=== PATIENT | male | born 1950 | race Caucasian/White ===

== ENCOUNTER 2021-11-02 08:48 | Outpatient (REF) | payer MEDICARE, SELFPAY ==
--- NOTE | 2021-11-02 13:09 | MHC.AU.ANO ---
Adult Audiological Evaluation Date of Visit: 11/02/21 Customs Director Used: Not Applicable Reason for Appointment: Patient was seen today due to concerns of a change in hearing. He reports difficulties understanding speech in the presence of background noise and when speaking at a distance. Recently, he was recommended to have his hearing checked by his primary care physician after receiving a screening in office. He also reports constant bilateral tinnitus. Mr. Taveras has a history of basal cell cancer on his left ear, that has been surgically removed and is being monitored. Mr. Taveras worked in [employer] in the [employer] for 6 years with limited use of hearing protection. 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 Does patient feel they have a hearing loss?: Yes If Yes, Which Ear?: Both Ears When Was Hearing Difficulty First Noticed?: Patient reports noticing a hearing loss about 5 years ago. Has hearing been tested previously?: Yes Previous Hearing Test Results: Patient was previously tested two years ago at the [place] in [place]. He did not have the results of the hearing test at this appointment. 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 History: History: Yes Branch: [employer] Years in : 4-8 Years Medical History: Medical History: Cancer, High Blood Pressure Medical History: Mr. Taveras is diagnosed with Parkinson's disease, which is managed with medications. Allergies: Bee stings Medication List: Rasagiline-1Mg- 1/day Carbidopa-Levodopa Tab- 25-100Mg- 3/day Valsartan 80-125Mg- 1/day Centrum Vitamin- 1/day Otoscopy: Right Ear: Unremarkable Left Ear: Unremarkable Tympanometry: Tympanometry performed due to: To assess integrity of the middle ear system Right Ear: Normal Middle Ear System (Type A) Left Ear: Normal Middle Ear System (Type A) Otoacoustic Emissions Frequency Range Used: 1.6-8 kHz Right Ear Results: Present 1600-2500Hz, Reduced 3200-3600Hz, Absent 4000-8000Hz Analysis: Reduced/Absent emissions suggest cochlear dysfunction Left Ear Results: Present 2207-5487, Absent 2637-7424 Hz Analysis: Reduced/Absent emissions suggest cochlear dysfunction Hearing Evaluation: Transducer(s) Used: Insert Earphones Method: Conventional Audiometry Stimuli Used: Pure Tones Right Ear: Description of Hearing: Normal hearing thresholds through 3000 Hz sloping to a moderately severe sensorineural hearing loss thereafter. Left Ear: Description of Hearing: Normal hearing thresholds through 2000 Hz sloping to a moderately severe sensorineural hearing loss thereafter. Speech Recognition Threshold (SRT): Method Used: Monitored Live Voice Stimuli Used: Spondee Words Right Ear: 10 dB Left Ear: 15 dB Word Discrimination: Method: Recorded Lists Word Lists Used: NU-6 Right Ear: 100% at 60 dB HL Left Ear: 100% at 60 dB HL QuickSIN: Binaural result of 2dB SNR loss was obtained today. This result is within the normal range while tested in optimal test conditions. These results do not rule out speech in noise difficulties in outside environments. Interpretation of Results: Mr. Taveras has a bilateral high frequency sensorineural hearing loss with excellent word recognition in quiet. Based on his hearing loss, it is expected that Mr. Taveras will have increased speech understanding difficulties in challenging listening environments, like a noisy restaurant. Recommendations: Audiological re-evaluation in one year. Will send a reminder card. Amplification is not warranted at this time. Patient does not feel they are ready for amplification at this time. Mr. Taveras should return in one year to monitor any changes in hearing. Patient was given list of communication strategies to employ to improve speech signal while in challenging listening environments. Diagnosis: Primary Diagnosis: H90.3 Bilateral Sensorineural Hearing Loss Secondary Diagnosis: H93.13 Tinnitus, Bilateral Services Performed: Comprehensive Audiological Evaluation (CPT 51384) Diagnostic Otoacoustic Emissions (CPT 55351, 26+TC) Tympanometry (CPT 80549) Signature: Student/Clinical Fellow: Yes: Marley Estrada B.A., AuD Refrigerating Technician I have reviewed/agreed with student/fellow documentation: Yes Provider: Soha Landaverde, CCC-A
== END 2021-11-02 08:49 | disposition home or self-care (01) ==
LOC: HO.SH 08:48
PROVIDERS: Visit Provider Internal Medicine
DX: Z01.118 Encounter for examination of ears and hearing with other abnormal findings (principal); H90.3 Sensorineural hearing loss, bilateral; H93.13 Tinnitus, bilateral
CPT/HCPCS: 92557; 92567; 92588

== ENCOUNTER → 2022-04-08 14:54 | Outpatient (BNVA) | payer MEDICARE, SELFPAY | PROVIDERS: PCP Internal Medicine; Visit Provider Nurse Practitioner Family | DX: G20 Parkinson's disease (principal); R26.9 Unspecified abnormalities of gait and mobility; Z79.899 Other long term (current) drug therapy | CPT/HCPCS: 99202 ==

== ENCOUNTER → 2022-06-23 07:50 | Outpatient (BNVA) | payer MEDICARE, SELFPAY | PROVIDERS: PCP Internal Medicine; Visit Provider Nurse Practitioner Family | DX: G20 Parkinson's disease (principal); R26.9 Unspecified abnormalities of gait and mobility; Z79.899 Other long term (current) drug therapy | CPT/HCPCS: 99212 ==

== ENCOUNTER → 2022-10-26 09:19 | Outpatient (BNVA) | payer MEDICARE, SELFPAY | PROVIDERS: PCP Internal Medicine; Visit Provider Nurse Practitioner Family | DX: G20 Parkinson's disease (principal); R26.9 Unspecified abnormalities of gait and mobility; R25.1 Tremor, unspecified; Z79.899 Other long term (current) drug therapy | CPT/HCPCS: 99212 ==

== ENCOUNTER → 2023-02-23 09:25 | Outpatient (BNVA) | payer MEDICARE, SELFPAY | PROVIDERS: PCP Internal Medicine; Visit Provider Nurse Practitioner Family | DX: G20 Parkinson's disease (principal); R26.9 Unspecified abnormalities of gait and mobility; Z79.899 Other long term (current) drug therapy | CPT/HCPCS: 99212 ==

== ENCOUNTER 2023-08-29 08:05 | Outpatient (AMB) | payer MEDICARE, SELFPAY ==
--- NOTE | 2023-08-29 08:14 | MHC.OFFVIS ---
Intake Vital Signs 08/29/23 08:16 Height 5 ft 10 in Weight 195 lb BMI 28.0 BP 138/76 Blood Pressure Location Rt brachial Position Sitting Respiration 16 Pulse 65 Pulse Source Pulse Oximeter Pulse Oximetry (%) 100 Oxygen Delivery Method Room Air Intake Visit Reasons: 6M f/up parkinsons - LVM Intake Note: Pt presents to the office for a 6 month follow up for Parkinsons. Pt states hes been well since his last visit. No new concerns. Financial Manager Required: No Allergies bee venom protein (honey bee) Allergy (Severe, Verified 08/29/23 08:15) Anaphylaxis tetanus Allergy (Severe, Uncoded 08/29/23 08:15) Nausea and Vomiting HPI HPI Comments History of Present Illness Details 73-yr-old male presents for f/u visit. Pt denies any significant interval medical history changes. Pt is currently enrolled in a PD and pain research study through the [facility] in [place]. Through the study he is being taught medication and being asked to listen to instrumental music. Pt's current PD medication regimen: CD-LD 25-100mg 1 tab qid Do medication effects last between doses: None ADL's: Independent, a bit slower. Slower with eating and cutting food. Swallowing: No issues Voice: Can be soft in the morning Cough: none Drooling: Some days a bit more- daytime and nighttime Orthostatic lightheadedness: More recently Constipation: None Freezing: Denies- shaky going backwards Stiffness: His back pain is better since starting the study Tremor: Stable. Falls: No interval falls. He is stilling try to practice situational awareness . Hallucinations: None Memory: Good Sleep: Good at night. May talk in his sleep and have dreams- not acting out dreams. Exercise: Stationary cycling, weight training- uses cable machine- when able. Active at home. Other- has been noticing bilateral whole wrist aching pain. Not sure if it is w/ rest or action. No weakness. [facility] Medical History Pleural plaque due to asbestos exposure Basal cell carcinoma HTN (hypertension) Surgical History (Updated 08/29/23 @ 08:20 by Dayna Griffin CMA) S/P skin biopsy History of colon surgery Hx of knee surgery Hx of appendectomy Family History Father Oral cancer Heart attack Mother Stroke Daughter HTN (hypertension) Hypothyroid Sister No problems noted. Sister No problems noted. Sister HTN (hypertension) Household Members: Spouse Alcohol intake: current Alcohol intake frequency: holidays/special occasions only Patient Tobacco Use Status: Former Tobacco user Quit Date: >50 yrs Review of Systems Const All systems reviewed & are unremarkable except as noted in HPI and below Physical Exam Vital Signs: Last Vital Signs Pulse 65 08/29/23 08:16 Resp 16 08/29/23 08:16 BP 138/76 08/29/23 08:16 Pulse Ox 100 08/29/23 08:16 Oxygen Delivery Method Room Air 08/29/23 08:16 BMI result Body Mass Index 28.0 Const General: cooperative and no acute distress Resp Effort & Inspection: normal respiratory effort and able to speak in complete sentences Neuro Other: General: A&O x's 3 Expression:? Mild decreased expression and blink Voice:? Mild hypophonia Tremor:? No tremor observed today Tone:? Bilateral upper extremity tone, mild Dyskinesia:? None FFM:? Mild bradykinesia Foot taps:? Mild bradykinesia Gait:? Stands easily today, good posture, decreased left arm swing, no right arm swing, short steps, steady gait Psych:? Pleasant affect RUE- positive Tinnel, negative Phalen and medial compression test LUE- negative Tinnel, Phalen, mediual compression test Assessment & Plan Assessment & Plan (1) Parkinson's disease: Code(s): G20 - Parkinson's disease (2) Tremor: Code(s): R25.1 - Tremor, unspecified Plan Continue Carbidopa-Levodopa 25-100mg QID at 9am, 12pm, 3pm, and 6pm. Monitor for evening/night off-times Continue Rasagaline 1mg qd. Continue regular physical activity. Try different silverware to improve ability to cut/eat food. Monitor wrist pain. Future considerations- increasing CD-LD or trying alternate. f/u in 6 months or sooner prn. Coding Level of Care Code Est Pt Level 4 (67705) Diagnoses Parkinson's disease G20 Tremor R25.1
[2023-08-29 08:16] VITALS: BP 138/76; PULSE 65; RESP 16; O2SAT 100; BMI 28.0
== END 2023-08-29 08:59 | disposition home or self-care (01) ==
PROVIDERS: Visit Provider Nurse Practitioner Family
DX: G20.A1 Parkinson's disease without dyskinesia, without mention of fluctuations (principal)
CPT/HCPCS: 99214

== ENCOUNTER → 2023-08-29 08:05 | Outpatient (BNVA) | payer MEDICARE, SELFPAY | PROVIDERS: Visit Provider Nurse Practitioner Family | DX: G20.A1 Parkinson's disease without dyskinesia, without mention of fluctuations (principal) | CPT/HCPCS: 99212 ==

== ENCOUNTER 2024-05-14 10:06 | Outpatient (AMB) | payer MEDICARE, SELFPAY ==
[2024-05-14 10:16] VITALS: BP 124/82; PULSE 68; O2SAT 97; BMI 26.5
--- NOTE | 2024-05-14 10:16 | MHC.OFFVIS ---
Vital Signs 05/14/24 10:16 Height 5 ft 10 in Weight 185 lb BMI 26.5 BP 124/82 Blood Pressure Location Rt brachial Position Sitting Pulse 68 Pulse Source Pulse Oximeter Pulse Oximetry (%) 97 Oxygen Delivery Method Room Air Intake Visit Reasons: 4 mo f/u- Parkinson-LVM Intake Note: Patient presents for 4 month follow up parkinsons . patient has no concerns today Allergies bee venom protein (honey bee) Allergy (Severe, Verified 05/14/24 10:22) Anaphylaxis tetanus Allergy (Severe, Uncoded 05/14/24 10:22) Nausea and Vomiting Medication List - Last Reconciled 05/14/24 by Christiane Min, IRRIGATION EQUIPMENT INSTALLER carbidopa-levodopa 25-100 mg 1 tab PO QID 30 days epinephrine (EpiPen 2-Christiano) 0.3 mg IM Q4H PRN multivitamin 1 tab PO DAILY rasagiline 1 mg PO DAILY 30 days valsartan-hydrochlorothiazide 80-12.5 mg 1 tab PO DAILY HPI Comments Details: 74 -yr-old male presents for f/u visit. Pt is accompanied by his . Pt denies any significant interval medical history changes. Pt is currently enrolled in a PD research study through the [place] in [place]. Pt's current PD medication regimen: CD-LD 25-100mg 1 tab qid. Rasagiline 1mg qd. ADL's: Independent, a bit slower. Slower with eating and cutting food. Swallowing: No issues Voice: Can be softer. [facility] Cough: None Drooling: Stable- daytime and nighttime Orthostatic lightheadedness: Has not noticed. Does drink water and Gatorade. Constipation: None Urinary: No issues. Freezing: Has now noticed some brief frozen feet. Stiffness: Not noticing Tremor: Not noticing Falls: He had a fall off a small ladder- thought he was just off could not correct his balance. Another fall, he tripped on his power washing cords. He is stilling try to practice situational awareness . Hallucinations: None Memory: Good Mood: Depressed, frustrated at times with having to think about everything he is doing. Sleep: Good at night. May talk in his sleep and have dreams- not acting out dreams. May need to rest after afternoon CD-LD dose. Tends to be an early riser. Exercise: Golfing. Active at home. Not going to the gym as much during the summer. Other- The bilateral whole wrist aching pain has resolved. May have brief episodes of tingling sensation in random parts of the body- mostly head or extremities. [facility] Medical History (Updated 05/14/24 @ 22:11 by BRIGETTE Ruvalcaba) Parkinson's disease Pleural plaque due to asbestos exposure Basal cell carcinoma HTN (hypertension) Surgical History S/P skin biopsy History of colon surgery Hx of knee surgery Hx of appendectomy Family History Father Oral cancer Heart attack Mother Stroke Daughter HTN (hypertension) Hypothyroid Sister No problems noted. Sister No problems noted. Sister HTN (hypertension) Social History Household Members: Spouse Alcohol intake: current Alcohol intake frequency: holidays/special occasions only Patient Tobacco Use Status: Former Tobacco user Review of Systems Const All systems reviewed & are unremarkable except as noted in HPI and below Physical Exam Vital Signs: Last Vital Signs Pulse 68 05/14/24 10:16 BP 124/82 05/14/24 10:16 Pulse Ox 97 05/14/24 10:16 Oxygen Delivery Method Room Air 05/14/24 10:16 BMI result Body Mass Index 26.5 Const General: cooperative and no acute distress Resp Effort & Inspection: normal respiratory effort and able to speak in complete sentences Neuro Other: General: A&O x's 3 Expression:? Mild decreased expression and blink, left facial droop- chronic. Voice:? Mild hypophonia Tremor:? RUE rest tremor Tone:? Bilateral upper extremity tone, mild Dyskinesia:? None FFM:? Mild bradykinesia Foot taps:? Mild bradykinesia Gait:? Stands easily today, good posture, decreased left arm swing, no right arm swing, short steps, steady gait Psych:? Pleasant affect Assessment & Plan Assessment & Plan (1) Parkinson's disease without dyskinesia: Code(s): G20.A1 - Parkinson's disease without dyskinesia, without mention of fluctuations Category: Medical (2) Tremor: Code(s): R25.1 - Tremor, unspecified Category: Medical (3) Bradykinesia: Code(s): R25.8 - Other abnormal involuntary movements Category: Medical Plan Continue Carbidopa-Levodopa 25-100mg QID at 9am, 12pm, 3pm, and 6pm. Continue Rasagaline 1mg qd. Continue regular physical activity. Offered OT to optimize self-feeding. Pt declines at this time. Strategies discussed to optimize self-feeding- try tapping, try mimicking his 's hand movements. Continue to f/u w/ dermatology as scheduled. Future considerations- increasing CD-LD or trying alternate. f/u in 6 months or sooner prn. Coding Level of Care Code Est Pt Level 4 (01034) Diagnoses Parkinson's disease without dyskinesia G20.A1 Tremor R25.1 Bradykinesia R25.8
== END 2024-05-14 11:36 | disposition home or self-care (01) ==
PROVIDERS: PCP Internal Medicine; Visit Provider Nurse Practitioner Family
DX: G20.A2 Parkinson's disease without dyskinesia, with fluctuations (principal)
CPT/HCPCS: 99214

== ENCOUNTER → 2024-05-14 10:06 | Outpatient (BNVA) | payer MEDICARE, SELFPAY | PROVIDERS: PCP Internal Medicine; Visit Provider Nurse Practitioner Family | DX: G20.A1 Parkinson's disease without dyskinesia, without mention of fluctuations (principal); R25.8 Other abnormal involuntary movements | CPT/HCPCS: 99212 ==

== ENCOUNTER 2024-07-10 14:20 | Outpatient (REF) | payer MEDICARE, SELFPAY ==
[2024-07-10 15:51] LABS: Hematocrit 43.9 % (42.0-52.0); Hemoglobin 14.7 g/dl (14.0-18.0); Mean Corpuscular HGB Conc 33.5 g/dl (31.0-36.0); Mean Corpuscular Hemoglobin 30.8 pg (27.0-33.0); Mean Corpuscular Volume 91.8 fL (80.0-98.0); Mean Platelet Volume 9.7 fL (9.4-12.4); Platelet Count 168 X10*3/uL (160-400); Red Blood Count 4.78 X10*6/uL (4.60-5.80); Red Cell Distribution Width 12.8 % (11.0-16.0); White Blood Count 6.8 X10*3/uL (4.8-10.8)
[2024-07-10 16:39] LABS: B Type Natriuretic Peptide 69 pg/mL (<100)
[2024-07-10 16:41] LABS: Anion Gap 12 (12-20); Blood Urea Nitrogen 22 mg/dL (9-16); Calcium 9.5 mg/dL (8.4-10.2); Carbon Dioxide 28 mmol/L (22-29); Chloride 105 mmol/L (96-108); Estimated Glomerular Filt Rate > 60; Glucose Random 87 mg/dL (60-115); Potassium 3.6 mmol/L (3.3-5.1); Sodium 141 mmol/L (135-145)
[2024-07-10 16:44] LABS: TSH reflex Free T4 1.33 uIU/mL (0.32-4.0)
== END 2024-07-10 14:21 | disposition home or self-care (01) ==
LOC: HO.LAB 14:20
PROVIDERS: PCP Internal Medicine; Visit Provider Internal Medicine Cardiovascular Disease
DX: I48.92 Unspecified atrial flutter (principal); I77.810 Thoracic aortic ectasia
CPT/HCPCS: 36415; 80048; 83880; 84443; 85027; 93005; 99202

== ENCOUNTER 2024-07-10 14:20 | Outpatient (AMB) | payer MEDICARE, SELFPAY ==
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
[2024-07-10 14:28] VITALS: BP 124/76; PULSE 69; BMI 26.6
== END 2024-07-10 15:11 | disposition home or self-care (01) ==
PROVIDERS: PCP Internal Medicine; Visit Provider Internal Medicine Cardiovascular Disease
DX: I48.92 Unspecified atrial flutter (principal); I77.89 Other specified disorders of arteries and arterioles
CPT/HCPCS: 93010; 99204

== ENCOUNTER → 2024-08-05 09:41 | Outpatient (REF) | payer MEDICARE, SELFPAY ==
--- NOTE | 2024-08-05 09:45 | HM_ITS ---
Conclusion: 1. Patient was monitored for total period of 2 days and 23 hours 2. Baseline was atrial flutter/fibrillation with average heart of 65 beats per minute with good rate control 3. Frequent PVCs noted with total burden of about 2% 4. No patient reported events 5. No significant pauses MTDD
--- NOTE | 2024-08-05 09:45 | CA_ITS ---
Transthoracic Echocardiogram Patient (Last, First, Middle): Bran Taveras A Gender: Male Date of : 1950 Age: 74 Procedure Date: 08/05/2024 Procedure Type: Transthoracic Echocardiogram Location: OP Height: 180.34 cm Weight: 83.01 kg BSA: 2.03 m2 Heart Rate: bpm BP: 132 / 70 mmHg Recreational Aide: MARGARITA Referring MD: Nishant Patel MD Symptoms: I48.92 - Unspecified atrial flutter Study Quality: Adequate ECG Rhythm: Atrial flutter Conclusions: - The left ventricular systolic function is normal. The calculated ejection fraction is 59% by biplane method. - There is severe septal and severe basal asymmetric hypertrophy. - No obvious valvular pathology seen on this study. - There is moderate dilatation of the ascending aorta measuring 4.50 cm. Findings Left Ventricle Normal left ventricular cavity size. The left ventricular systolic function is normal. The calculated ejection fraction is 59% by biplane method. There is no evidence of regional wall motion abnormalities. Diastolic function is indeterminate on the basis of available data. There is severe septal and severe basal asymmetric hypertrophy. Right Ventricle Moderately increased right ventricular cavity size. There is mild to moderately decreased right ventricular systolic function. Atria The left atrium is normal in size. The right atrium is mildly dilated. Aortic Valve There is a normal trileaflet aortic valve. There is mild calcification of the aortic valve. There is no aortic valve stenosis. There is no aortic valve regurgitation. Mitral Valve There is mild mitral annular calcification. There is mild mitral valve regurgitation. There is no mitral valve stenosis. Pulmonic Valve The pulmonic valve is likely normal. Tricuspid Valve There is mild tricuspid valve regurgitation. There is no evidence of pulmonary hypertension. Great Vessels The aortic annulus and sinuses of valsalva are normal in size. There is moderate dilatation of the ascending aorta measuring 4.50 cm. Venous The inferior vena cava is normal in size and collapses greater than 50% with inspiration. Pericardium/Pleural There is no evidence of pericardial effusion. Prior Study Comparison No prior study available for comparison. Recommendations, Care & Conclusions No obvious valvular pathology seen on this study. Measurements 2D Linear Measurements IVSd: 0.80 0.6-0.9/0.6-1.0 cm LVIDd: 5.72 3.9-5.3/4.2-5.9 cm LVIDd Index: 2.82 2.4-3.2/2.2-3.1 cm/m2 LVIDs: 2.97 2.0-3.6 cm LVPWd: 0.84 0.7-1.1 cm LA Diam: 4.40 2.7-3.8/3.0-4.0 cm LAIDs Index: 2.17 1.5-2.3 cm/m2 LV Mass: 221.18 67-162/88-224 g LV Mass Index: 108.96 43-95/49-115 g/m2 LVOT Diam: 2.20 3.0+(-)1.3 cm 2D Systolic Function EF 4C: 61.20 >55% EF 2C: 60.30 >55% EF BiP: 58.90 >55% Mitral Valve MV Pk E: 1.20 MV Decel Time: 113.00 E'Lateral: 11.30 E'Medial: 9.14 E/E' Med: 13.10 E/E' Lat: 10.60 PHT: 33.00 MVA PHT: 6.67 Decel Long: 10.57 Aortic Valve AoV Pk Hamilton: 0.89 AoV Pk Grad: 3.00 HEIDI: 3.37 LVOT LVOT Pk Hamilton: 0.79 LVOT Mn Hamilton: 0.58 LVOT VTI: 0.20 LVOT Pk Grad: 2.00 LVOT Mn Grad: 2.00 LVOT Diam: 2.20 LVOT Area: 3.80 Diastolic Function MV Pk E: 1.20 E'Medial: 9.14 E/E' Med: 13.10 E' Laterial: 11.30 E/E' Lat: 10.60 Right Ventricle TAPSE (mm): 12.20 Tricuspid Valve TR Pk Hamilton: 2.32 TR Pk Grad: 22.00 RA Press: 8.00 RVSP: 25.00 Great Vessels Aorta Sinus of Valsalva: 3.60 2.0-3.5 cm Ao Asc: 4.50 2.1-3.4 cm Pulmonary Valve PV Pk Hamilton: 0.65 Peak PV Grad: 2.00 Updated in Other Vendor System with Status of Final Dayne Manzo MD electronically signed on 08/05/2024 11:41:03 AM with status of Final
== END ==
LOC: HO.CARD 09:41
PROVIDERS: PCP Internal Medicine; Visit Provider Internal Medicine Cardiovascular Disease
DX: I48.92 Unspecified atrial flutter (principal)
CPT/HCPCS: 93242; 93306

== ENCOUNTER → 2024-08-05 09:45 | Outpatient (BNV) | payer MEDICARE, SELFPAY | PROVIDERS: PCP Internal Medicine; Visit Provider Internal Medicine | DX: I48.91 Unspecified atrial fibrillation (principal); I48.92 Unspecified atrial flutter | CPT/HCPCS: 93244; 93306 ==

== ENCOUNTER 2024-08-12 15:34 | Outpatient (AMB) | payer MEDICARE, SELFPAY ==
[2024-08-12 15:49] VITALS: BP 124/82; PULSE 86; BMI 27.2
--- NOTE | 2024-08-12 15:49 | MHC.OFFVIS ---
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 Required: No Change Management Administrator: Change Management Administrator Present Accompanied by: Spouse Allergies bee venom protein (honey bee) Allergy (Severe, Verified 05/14/24 10:22) Anaphylaxis tetanus Allergy (Severe, Uncoded 05/14/24 10:22) Nausea and Vomiting Medication List - Last Reconciled 08/12/24 by Nishant Patel MD apixaban (Eliquis) 5 mg PO BID carbidopa-levodopa 25-100 mg 1 tab PO QID 30 days epinephrine (EpiPen 2-Christiano) 0.3 mg IM Q4H PRN multivitamin 1 tab PO DAILY rasagiline 1 mg PO DAILY 30 days valsartan-hydrochlorothiazide 80-12.5 mg 1 tab PO DAILY HPI Comments Details: Bran comes for follow-up. He continues to said he has no significant symptoms. Continues to maintain activity level as tolerated. He has been taking Eliquis as tolerated. Denies any orthopnea, PND, leg edema. No prolonged palpitation irregular heartbeat. Denies any lightheadedness, syncope. No exertional chest pain. Echocardiogram shows preserved LV EF of 59% in moderate ascending aortic enlargement with severe septal asymmetric hypertrophy without obstructive physiology with mildly dilated right atrium. [facility] Medical History Parkinson's disease Pleural plaque due to asbestos exposure Basal cell carcinoma HTN (hypertension) Surgical History S/P skin biopsy History of colon surgery Hx of knee surgery Hx of appendectomy Family History Father Oral cancer Heart attack Mother Stroke Daughter HTN (hypertension) Hypothyroid Sister No problems noted. Sister No problems noted. Sister HTN (hypertension) Social History Household Members: Spouse Alcohol intake: current Alcohol intake frequency: holidays/special occasions only Patient Tobacco Use Status: Former Tobacco user Review of Systems Const Denies chills, Denies fatigue, Denies fever(s), Denies frequent falls, Denies weakness, Denies weight gain and Denies weight loss ENT Denies dizziness Card Denies chest pain, Denies leg edema, Denies lightheadedness, Denies palpitations, Denies dyspnea, Denies dyspnea on exertion, Denies orthopnea and Denies other (loss of consciousness) Resp Denies cough, Denies dyspnea and Denies dyspnea on exertion GI Denies hematochezia and Denies change in stool character Musc Denies abnormal gait, Denies muscle weakness, Denies numbness, Denies radiating pain into limb and Denies tingling Neuro Denies Abnormal speech present, Denies abnormal gait, Denies dizziness, Denies frequent falls, Denies numbness, Denies tingling and Denies weakness Endo Denies fatigue and Denies palpitations Physical Exam Vital Signs: Last Vital Signs Pulse 86 08/12/24 15:49 BP 124/82 08/12/24 15:49 BMI result Body Mass Index 27.2 Const General: cooperative, comfortable, no acute distress, alert, awake, Physically active and well groomed Nutritional Appearance: average body habitus and well nourished Orientation/consciousness: patient oriented x3 Limitations: no limitations HEENT Head: Yes normocephalic and Yes atraumatic Neck Neck: Yes trachea midline, Yes supple and Yes no JVD Resp Effort & Inspection: normal respiratory effort Auscultation: clear to auscultation bilaterally Cardio Jugular venous distension: no JVD Palpation: normal PMI Rate: regular rate Heart sounds: S1 normal heart sound present, S2 normal heart sound present, no click, no gallops, no murmurs and no rubs GI Auscultation: normal bowel sounds Skin General skin exam: no rashes or lesions noted Neuro General: patient oriented x3, no focal motor deficits and other (Parkinsonian tremor) Speech: No Abnormal speech present Extrem General: Yes no clubbing, cyanosis or edema Psych Appearance: grossly normal Office Procedures EKG Details: EKG shows atrial flutter with variable conduction with PVCs with nonspecific ST abnormalities [id number], Complete Assessment & Plan Assessment & Plan (1) Atrial flutter: Code(s): I48.92 - Unspecified atrial flutter Category: Medical Plan: Atrial flutter which is persistent without any obvious symptoms or signs of cardiac decompensation. Has been on oral anticoagulation 4 weeks. We discussed about management of atrial flutter and rhythm control approach as her usual 1st line treatment approach. It is possible that he is underestimating his symptoms at this point time. Discussed about synchronized cardioversion. We discussed risks, benefits, alternatives of procedure. Understands agrees and will schedule him in near future. (2) Ascending aorta enlargement: Code(s): I77.89 - Other specified disorders of arteries and arterioles Category: Medical Plan: Moderate ascending aortic aneurysm at 4.5 cm. Continue aggressive blood pressure control which is currently well optimized importance of good blood pressure control was discussed. Continue management lipid with target goal LDL less than 100 mg/dL. Advise avoid strenuous isometric exercise. Will follow up in the clinic after cardioversion. Thank you for allowing me to partake in his care Medications: Refilled apixaban (Eliquis) 5 mg PO BID 180 tabs 3RF Coding Level of Care Code Est Pt Level 4 (71616) Complex EM visit Add On G2211 Diagnoses Atrial flutter I48.92 Ascending aorta enlargement I77.89 CPT Codes EKG - CPT: 84990-[id number], Complete ([id number])
== END 2024-08-12 16:30 | disposition home or self-care (01) ==
LOC: HO.HCS 15:35
PROVIDERS: PCP Internal Medicine; Visit Provider Internal Medicine Cardiovascular Disease
DX: I48.92 Unspecified atrial flutter (principal); I77.89 Other specified disorders of arteries and arterioles
CPT/HCPCS: 93010; 99214; G2211

== ENCOUNTER → 2024-08-12 15:34 | Outpatient (BNVA) | payer MEDICARE, SELFPAY | PROVIDERS: PCP Internal Medicine; Visit Provider Internal Medicine Cardiovascular Disease | DX: I48.92 Unspecified atrial flutter (principal); I77.89 Other specified disorders of arteries and arterioles; Z79.01 Long term (current) use of anticoagulants | CPT/HCPCS: 93005; 99212 ==

== ENCOUNTER 2024-08-21 13:10 | Day surgery (SDC) | payer MEDICARE, SELFPAY ==
--- NOTE | 2024-08-20 11:48 | P.CONAN_ITS ---
Documented by User: Denita Cantrell NP 08/20/24 11:49 HPI - Anesthesia Eval Consult details Narrative: 74yo M for Cardioversion Michelle [facility] Active Problems Active Problems: All Active Problems Ascending aorta enlargement (Acute) Atrial flutter (Acute) Bradykinesia (Acute) Parkinson's disease without dyskinesia (Acute) Tremor (Acute) Gait difficulty (Acute) Past Medical History Medical History Parkinson's disease Pleural plaque due to asbestos exposure Basal cell carcinoma HTN (hypertension) Family History Family History Father Oral cancer Heart attack Mother Stroke Daughter HTN (hypertension) Hypothyroid Sister No problems noted. Sister No problems noted. Sister HTN (hypertension) Surgical History Surgical History S/P skin biopsy History of colon surgery Hx of knee surgery Hx of appendectomy Social History Social History Household Members: Spouse Are you a primary care connector to a significant other at home: No Do you presently have visiting nurse or other home services: No Alcohol intake: current Alcohol intake frequency: holidays/special occasions only Patient Tobacco Use Status: Former Tobacco user Use of substances other than those prescribed or required for medical reasons: No Are you DNR?: No Advance Directives: No Advance Directives Information Provided: Yes Recently lost weight without trying: No Meds Allergies Allergy/AdvReac Type Severity Reaction Status Date / Time bee venom protein (honey bee) Allergy Severe Anaphylaxis Verified 05/14/24 10:22 tetanus Allergy Severe Nausea and Uncoded 05/14/24 10:22 Vomiting Home Medications ?Medication ?Instructions ?Recorded ?Confirmed ?Last Taken ?Type multivitamin 1 tab PO DAILY 04/08/22 08/12/24 Unknown History valsartan 80 1 tab PO DAILY 04/08/22 08/12/24 Unknown History mg-hydrochlorothiazide 12.5 mg tablet epinephrine 0.3 mg/0.3 mL 0.3 mg IM Q4H PRN 02/23/23 08/12/24 Unknown History injection, auto-injector (EpiPen 2-Christiano) Exam Narrative Narrative: ECHO 07/2024 Conclusions: - The left ventricular systolic function is normal. The calculated ejection fraction is 59% by biplane method. - There is severe septal and severe basal asymmetric hypertrophy. - No obvious valvular pathology seen on this study. - There is moderate dilatation of the ascending aorta measuring 4.50 cm. Assessment and Plan Assessment Anesthesia Assessment: Chart Reviewed Documented by User: Blank Chen MD 08/21/24 14:16 [facility] Past Medical History Medical History Parkinson's disease Pleural plaque due to asbestos exposure Basal cell carcinoma HTN (hypertension) Family History Family History Father Oral cancer Heart attack Mother Stroke Daughter HTN (hypertension) Hypothyroid Sister No problems noted. Sister No problems noted. Sister HTN (hypertension) Family history of problems with anesthesia: No Surgical History Surgical History S/P skin biopsy History of colon surgery Hx of knee surgery Hx of appendectomy History of Problems with Anesthesia: No Social History Social History Household Members: Spouse Are you a primary care connector to a significant other at home: No Do you presently have visiting nurse or other home services: No Alcohol intake: current Alcohol intake frequency: holidays/special occasions only Patient Tobacco Use Status: Former Tobacco user Use of substances other than those prescribed or required for medical reasons: No Are you DNR?: No Advance Directives: No Advance Directives Information Provided: Yes Recently lost weight without trying: No Meds Allergies Allergy/AdvReac Type Severity Reaction Status Date / Time bee venom protein (honey bee) Allergy Severe Anaphylaxis Verified 05/14/24 10:22 tetanus Allergy Severe Nausea and Uncoded 05/14/24 10:22 Vomiting Home Medications ?Medication ?Instructions ?Recorded ?Confirmed ?Last Taken ?Type multivitamin 1 tab PO DAILY 04/08/22 08/12/24 Unknown History valsartan 80 1 tab PO DAILY 04/08/22 08/12/24 Unknown History mg-hydrochlorothiazide 12.5 mg tablet epinephrine 0.3 mg/0.3 mL 0.3 mg IM Q4H PRN 02/23/23 08/12/24 Unknown History injection, auto-injector (EpiPen 2-Christiano) Exam Airway Mallampati Class: II (cPs top front 4) TM Dist: >3cm Neck ROM: Full Heart: rrr Lungs: cta Assessment and Plan Assessment Anesthesia Assessment: Anesthesia Plan Discussed Final Anesthetic Review Family History of Problems with Anesthesia: No History of Problems with Anesthesia: No NPO: Yes ASA Class: II Final Preanesthetic Review: No Changes in Pt Med Stat, Meds/Allgs Chart Reviewed and Consent Obtained/Reviewed Patient Risk: Low Procedure Risk: Low Anesthetic Plan Anesthetic Plan: GA Disposition: Standard PACU
[2024-08-21 13:28] VITALS: BP 139/80; PULSE 68; RESP 16; TEMP 36.7; O2SAT 97
[2024-08-21] MEDS: Lactated Ringers 1,000 ML 50 ML IVCONT (14:28)
--- NOTE | 2024-08-21 14:31 | MHC.SHP ---
Pre-Procedural Eval Section A - 24 Hr Update-Section A only Date of Service: 08/21/24 The patient is an INPATIENT: No Changes since office visit: Yes Patient answered all questions; No Cold of Flu in the past 2 weeks, No New Medical Problems and No Changes in Medication The patient has been examined within 24 hours of the surgical procedure. The History & Physical has been completed within 30 days and I have reviewed it.: Yes Section B - Complete if H&P > 30 days Chief Complaint: Unspecified atrial flutter Allergies: Allergies Allergy/AdvReac Type Severity Reaction Status Date / Time bee venom protein (honey bee) Allergy Severe Anaphylaxis Verified 05/14/24 10:22 tetanus Allergy Severe Nausea and Uncoded 05/14/24 10:22 Vomiting Plan I have reviewed the history and physical and performed a pertinent physical examination on my patient. No changes have occurred unless specified. Time Spent With Patient Time: Total time managing care of this patient today ____ minutes.
[2024-08-21 15:15] VITALS: BP 133/79; PULSE 59; RESP 16; TEMP 36.8; O2SAT 97
--- NOTE | 2024-08-21 15:16 | ECG_ITS ---
Test Reason : S/P CARDIOVERSION Blood Pressure : / mmHG Vent. Rate : 076 BPM Atrial Rate : 076 BPM P-R Int : 286 ms QRS Dur : 104 ms QT Int : 414 ms P-R-T Axes : 002 -07 024 degrees QTc Int : 465 ms Sinus rhythm with 1st degree A-V block with occasional Premature ventricular complexes Possible Left atrial enlargement Borderline ECG No previous ECGs available Referred By: Nishant Patel Electronically Signed By:Rj Doherty
--- NOTE | 2024-08-21 15:17 | HO.CARDIVERS ---
Cardioversion Procedure Note Cardioversion Date of Procedure: Today Ordering Provider: Kristin Patel Performing Provider: Kristin Patel Indication for Procedure: Persistent atrial flutter Pre-Op Diagnosis: Same Post-Op Diagnosis: Sinus rhythm Performed with Transesophageal Echo: No Consent: Verbal and Written consent was obtained from the patient before starting and confirming oral anticoagulation use. The patient was made aware of the risk of synchronized cardioversion including benefits and alternatives Procedure: After consent obtained, cardioversion pads were attached in anteroposterior configuration and the patient was sedated by the anesthesia team. Once adequate sedation achieved, patient was delivered 200 joules of biphasic synchronized energy in anteroposterior configuration Complications: None Impression: Successful conversion to sinus rhythm Recommendations: 1. 12 lead EKG 2. Continue full oral anticoagulation with Eliquis 3. Follow up in the clinic after Holter monitor
[2024-08-21 15:20] VITALS: BP 112/65; PULSE 72; RESP 16; O2SAT 99
[2024-08-21 15:25] VITALS: BP 112/64; PULSE 73; RESP 16; O2SAT 96
[2024-08-21 15:30] VITALS: BP 125/78; PULSE 72; RESP 16; TEMP 36.6; O2SAT 96
== END 2024-08-21 15:48 | disposition home or self-care (01) ==
PROVIDERS: PCP Internal Medicine; Visit Provider Internal Medicine Cardiovascular Disease
PROC: 5A2204Z Restoration of Cardiac Rhythm, Single (ICD-10-PCS; principal; 2024-08-21 15:00)
DX: I48.92 Unspecified atrial flutter (principal); I77.89 Other specified disorders of arteries and arterioles; I10 Essential (primary) hypertension; G20.A1 Parkinson's disease without dyskinesia, without mention of fluctuations; J92.0 Pleural plaque with presence of asbestos; Z79.01 Long term (current) use of anticoagulants; Z79.899 Other long term (current) drug therapy; Z88.8 Allergy status to other drugs, medicaments and biological substances; Z98.890 Other specified postprocedural states; Z87.891 Personal history of nicotine dependence
CPT/HCPCS: 92960; 93005; J2704

== ENCOUNTER → 2024-08-21 13:10 | Outpatient (BNV) | payer MEDICARE, SELFPAY | PROVIDERS: PCP Internal Medicine; Visit Provider Internal Medicine Cardiovascular Disease | DX: I44.0 Atrioventricular block, first degree (principal); I49.3 Ventricular premature depolarization | CPT/HCPCS: 93010 ==

== ENCOUNTER 2024-09-12 09:34 | Outpatient (AMB) | payer MEDICARE, SELFPAY ==
--- NOTE | 2024-09-12 09:44 | A.OFFVIS_ITS ---
Vital Signs 09/12/24 09:45 Height 5 ft 10 in Weight 190 lb 14.725 oz BMI 27.4 BP 120/62 Pulse 75 Pulse Source Monitor Intake Visit Reasons: 4 wk f/up s/p; holter/ cvr Microwave Radio Technician Required: No Secondary English Teacher: Secondary English Teacher Present Allergies bee venom protein (honey bee) Allergy (Severe, Verified 09/12/24 09:49) Anaphylaxis tetanus Allergy (Severe, Uncoded 09/12/24 09:49) Nausea and Vomiting Medication List - Last Reconciled 09/12/24 by Nishant Patel MD apixaban (Eliquis) 5 mg PO BID carbidopa-levodopa 25-100 mg 1 tab PO QID 30 days epinephrine (EpiPen 2-Christiano) 0.3 mg IM Q4H PRN multivitamin 1 tab PO DAILY rasagiline 1 mg PO DAILY 30 days valsartan-hydrochlorothiazide 80-12.5 mg 1 tab PO DAILY HPI Comments Details: Bran comes for follow-up after cardioversion. He said he has been feeling we ll. He denies any new symptoms of irregular heartbeat or palpitation. No lightheadedness, syncope. He said he notices more energy since cardioversion. He denies any orthopnea, PND, leg edema. No bleeding issues or neurologic events. He said he remains concerned about falling although he was not had any falls for awhile. Denies any exertional chest pain. [facility] Medical History (Updated 09/12/24 @ 10:08 by Nishant Patel MD) Atrial flutter Parkinson's disease Pleural plaque due to asbestos exposure Basal cell carcinoma HTN (hypertension) Surgical History S/P skin biopsy History of colon surgery Hx of knee surgery Hx of appendectomy Family History Father Oral cancer Heart attack Mother Stroke Daughter HTN (hypertension) Hypothyroid Sister No problems noted. Sister No problems noted. Sister HTN (hypertension) Social History Household Members: Spouse Are you a primary care program resident to a significant other at home: No Do you presently have visiting nurse or other home services: No Alcohol intake: current Alcohol intake frequency: holidays/special occasions only Patient Tobacco Use Status: Former Tobacco user Review of Systems ENT Reports dizziness Card Denies chest pain, Denies chest pain at rest, Denies chest pain with activity, Denies rapid heart rate, Denies pedal edema, Denies edema, Denies leg edema, Denies lightheadedness, Denies palpitations, Denies dyspnea, Denies dyspnea on exertion and Denies orthopnea Resp Denies cough, Denies dyspnea and Denies dyspnea on exertion GI Denies hematochezia and Denies change in stool character Musc Denies abnormal gait, Reports limited range of motion, Reports muscle cramps, Denies muscle weakness, Denies numbness, Denies radiating pain into limb, Denies stiffness and Denies tingling Neuro Denies Abnormal speech present, Denies abnormal gait, Reports dizziness, Denies numbness and Denies tingling Endo Denies palpitations Physical Exam Vital Signs: Last Vital Signs Pulse 75 09/12/24 09:45 BP 120/62 09/12/24 09:45 BMI result Body Mass Index 27.4 Const General: cooperative, comfortable, no acute distress, alert, awake, Physically active and well groomed Nutritional Appearance: average body habitus and well nourished Orientation/consciousness: patient oriented x3 Limitations: no limitations HEENT Head: Yes normocephalic and Yes atraumatic Neck Neck: Yes trachea midline, Yes supple and Yes no JVD Resp Effort & Inspection: normal respiratory effort Auscultation: clear to auscultation bilaterally Cardio Jugular venous distension: no JVD Palpation: normal PMI Rate: regular rate Rhythm: regular rhythm Heart sounds: S1 normal heart sound present, S2 normal heart sound present, no click, no gallops, no murmurs and no rubs GI Auscultation: normal bowel sounds Skin General skin exam: no rashes or lesions noted Neuro General: patient oriented x3, no focal motor deficits and other (Parkinsonian tremor) Speech: No Abnormal speech present Extrem General: Yes no clubbing, cyanosis or edema Psych Appearance: grossly normal Office Procedures EKG Details: EKG shows normal sinus rhythm with first-degree AV block with poor R-wave progression most likely lead placement [id number], Complete Assessment & Plan Assessment & Plan (1) Paroxysmal atrial flutter: Code(s): I48.92 - Unspecified atrial flutter Category: Medical Plan: Paroxysmal atrial flutter status post cardioversion, feeling better with improved functional capacity as per him. Encouraged to continue to participate in regular physical activity. It will be difficult to monitor his recurrence as he has subtle symptoms associated with atrial flutter. I recommended him to consider investing in a smart wrist device that can help detect irregular pulse and may help with monitoring and burden of atrial flutter. If he has recurrent atrial flutter can consider antiarrhythmic drugs and/or ablation. This was discussed with him. We discussed about continuing oral anticoagulation therapy with Eliquis at 5 mg b.i.d.. He is concerned about fall although he was not fallen for awhile. We discussed about fall prevention techniques. Also Watchman device can be considered although currently I do not think he would qualify for the same as per FDA requirements. (2) Ascending aorta enlargement: Code(s): I77.89 - Other specified disorders of arteries and arterioles Category: Medical Plan: Mildly dilated ascending aorta without any change. Continue to avoid aggressive isometric exercises. No interventions required from surgical perspective. Continue aggressive blood pressure control which is currently well optimized. Encouraged to maintain activity level as tolerated. Will follow up in the clinic in 6 months time, sooner p.r.n.. Thank you for allowing me to partake in his care Coding Level of Care Code Est Pt Level 4 (58551) Complex EM visit Add On G2211 Diagnoses Paroxysmal atrial flutter I48.92 Ascending aorta enlargement I77.89 CPT Codes EKG - CPT: 50322-[id number], Complete ([id number])
[2024-09-12 09:45] VITALS: BP 120/62; PULSE 75; BMI 27.4
--- OUTSIDE RECORDS SUMMARY | 2024-09-18 00:54 | XMS_ITS | Continuity of Care Document ---
Author Name [facility] Organization [facility] Care Team Providers Care [employer] St[employer] And [employer] Supervisor Name Role Phone [facility] Unavailable Unavailable Problems Combined list of problems from Department of Defense and Veterans Affairs facilities. It does not include entries that were removed or entered in error. Problem Status Onset Date Problem Type Date of Resolution Comments Source Parkinson disease Active 7 Condition [facility] [place] [facility] Asbestosis Active Condition [facility] [place] [place] [facility]rial fibrillation Active Condition [facility] Colonic polyp Active [facility] Diverticulitis of colon Active [facility] Exposure to potentially hazardous substance Active Condition Nov 16, 2023 Entered By: PERLA PRUITT Comment: original RENETTA Screen completed 08/22/22 [facility] HTN - Hypertension ([facility] [id number]) [facility] Long-term current use of anticoagulant Active Condition [facility] (631[facility]) Diagnosis: ICD-10-CM Z79.01 custodial (current) use of anticoagulants Active Diagnosis [facility] (6[facility]) Diagnosis: ICD-10-CM I48.91 Unspecified atrial fibrillation Active Diagnosis [facility] [place] [facility] Diagnosis: ICD-10-CM I10 Essential (primary) hypertension Active Diagnosis [facility] [place] [facility] Diagnosis: ICD-10-CM Z23 Encounter for immunization Active Diagnosis [facility] Medications Combined list of outpatient medications from Department of Defense and Veterans Affairs facilities.Medications provided include 1) outpatient medications from the last 15 months, and 2) patient-reported medications. Medication Details Route Status Patient Instructions Prescription Expires Prescription Number Last Dispense Date Ordering Provider Order Date Order Qty Source APIXABAN 5MG TAB TAKE ONE TABLET BY MOUTH EVERY 12 HOURS FOR PREVENTI ON OF BLOOD CLOTS ORAL ACTIVE 08/28/2025 [id number] ALISON CLARK 2023 180 [facility] CARBIDOPA 25MG/LEVODO PA 100MG TAB TAKE 1 TABLET BY MOUTH FOUR TIMES A DAY ORAL ACTIVE 10/19/2024 [id number] 4 MARY ANNE JONES 2023 360 [facility] EPINEPHRINE (EQV-EPI-PE N) 0.3MG/0.3ML INJECTOR INJECT DIRECTED INTRAMUS CULARLY ONE TIME INTRAM USCULA R ACTIVE 08/27/2025 [id number] 4 ALISON CLARK 2023 2 [facility] RASAGILINE MESYLATE 1MG TAB TAKE ONE TABLET BY MOUTH AT BEDTIME ORAL ACTIVE 10/19/2024 [id number] 4 MARY ANNE JONES 2023 90 [facility] RASAGILINE MESYLATE 1MG TAB TAKE ONE TABLET BY MOUTH AT BEDTIME ORAL DISCONT INUED 08/04/2023 [id number] 3 MARY ANNE JONES Y 2022 90 [facility] VALSARTAN PA-F TAB TAKE DIRECTED BY MOUTH ONCE DAILY ORAL ACTIVE ALISON CLARK 2021 [facility] Allergies, Adverse Reactions, Alerts Combined list of allergies from Department of Defense and Veterans Affairs facilities. It does not include entries that were removed or entered in error. Substance Category Reaction Severity Reaction type Status Date Reported Comments Source BEE VENOM Propensity to adverse reaction (finding) active 9 [facility] TETANUS TOXOID Propensity to adverse reactions to drug (finding) active 9 [facility] Immunizations Combined list of available immunizations from the Department of Defense and Veterans Affairs facilities. Immunization Series Date Given Administered By Site Reaction Lot Number CVX Code Drug Double Head Machine Operator Status Comments Source INFLUENZA, UNSPECIFIED FORMULATION 2023 88 complet ed per statement from vet [facility] COVID-19 (MODERNA), MRNA, LNP-S, PF, 50 MCG/0.5 ML (AGES 12+ YEARS) 2022 CHANNING FERMIN LEFT DELTO ID [id number] 312 complet ed [facility] INFLUENZA, HIGH-DOSE, QUADRIVALENT 2022 CHANNING FERMIN KAMI RIGHT DELTO ID [id number] 197 complet ed [facility] COVID-19 (PFIZER), MRNA, LNP-S, BIVALENT BOOSTER, PF, 30 MCG/0.3 ML DOSE 4 2021 300 complet ed vets card Lot#: [id number] Mfr: [employer], [facility] INFLUENZA, UNSPECIFIED FORMULATION 2021 88 complet ed [facility] COVID-19 (PFIZER), MRNA, LNP-S, PF, 30 MCG/0.3 ML DOSE 2021 208 complet ed vets card Lot#: [id number] Mfr: [employer], [employer] [facility] COVID-19 (PFIZER), MRNA, LNP-S, PF, 30 MCG/0.3 ML DOSE 3 2020 208 complet ed vets card Lot#: [id number] Mfr: [employer], [employer] [facility] COVID-19 (PFIZER), MRNA, LNP-S, PF, 30 MCG/0.3 ML DOSE 2 2020 208 complet ed vets card Lot#: [id number] Mfr: [employer], [employer] [facility] COVID-19 (PFIZER), MRNA, LNP-S, PF, 30 MCG/0.3 ML DOSE 1 2020 208 complet ed Lot#: [id number] Mfr: [employer], [employer] [facility] INFLUENZA, UNSPECIFIED FORMULATION 2019 88 complet ed [facility] INFLUENZA, TRIVALENT, ADJUVANTED 2018 168 complet ed Site: Left Deltoid [facility] [place] [facility] ZOSTER RECOMBINANT 2 2018 187 complet ed [facility] [place] PNEUMOCOCCAL POLYSACCHARID E PPV23 2018 33 complet ed [facility] [place] [facility] ZOSTER RECOMBINANT 1 2018 187 complet ed [facility] [place] [facility] INFLUENZA, SEASONAL, INJECTABLE 2017 141 complet ed [facility] Results Combined list of recent chemistry, hematology and other laboratory results from Department of Defense and Veterans Affairs, ranging from 15 months to all on record, depending upon the facility. Order Name Results Value Reference Range Date Interpretation Specimen Comments Source BASIC METABOLIC PANEL (non-fast ing) UREA NITROGEN [MASS/VOLU ME] IN SERUM OR PLASMA 22 mg/dL 7 - 25 08/26 Specimen Type: SERUM No comment entered. Ordering Provider: SYDNEE CLARK Report Released Date/Time: Aug 15, 2024 03:53 PM Reporting Lab: [facility] [address] [facility] [address] Performing Lab: [facility] [address] [facility] [address] [facility] BASIC METABOLIC PANEL (non-fast ing) GLUCOSE [MASS/VOLU ME] IN SERUM OR PLASMA 91 mg/dL 65 - 100 08/26 Specimen Type: SERUM No comment entered. Ordering Provider: SYDNEE CLARK Report Released Date/Time: Aug 15, 2024 03:53 PM Reporting Lab: [facility] [address] [facility] [address] Performing Lab: [facility] [address] [facility] [address] [facility] BASIC METABOLIC PANEL (non-fast ing) SODIUM [MOLES/VOL UME] IN SERUM OR PLASMA 137 mmol/L 135 - 145 08/26 Specimen Type: SERUM No comment entered. Ordering Provider: SYDNEE CLARK Report Released Date/Time: Aug 15, 2024 03:53 PM Reporting Lab: [facility] [place] [facility] [address] [facility] [address] Performing Lab: [facility] [place] [facility] [address] [address] [facility] [place] [facility] BASIC METABOLIC PANEL (non-fast ing) POTASSIUM [MOLES/VOL UME] IN SERUM OR PLASMA 4.0 mmol/L 3.5 - 5.0 08/26 Specimen Type: SERUM No comment entered. Ordering Provider: SYDNEE CLARK Report Released Date/Time: Aug 15, 2024 03:53 PM Reporting Lab: [facility] [place] [facility] [address] [address] Performing Lab: [facility] [place] [address] [address] [facility] [place] [facility] BASIC METABOLIC PANEL (non-fast ing) CHLORIDE [MOLES/VOL UME] IN SERUM OR PLASMA 104 mmol/L 100 - 110 08/26 Specimen Type: SERUM No comment entered. Ordering Provider: SYDNEE CLARK Report Released Date/Time: Aug 15, 2024 03:53 PM Reporting Lab: [facility] [place] [facility] [address] [address] Performing Lab: [facility] [place] [address] [address] [facility] [place] [facility] BASIC METABOLIC PANEL (non-fast ing) CARBON DIOXIDE, TOTAL [MOLES/VOL UME] IN SERUM OR PLASMA 22 meq/L 20 - 30 08/26 Specimen Type: SERUM No comment entered. Ordering Provider: SYDNEE CLARK Report Released Date/Time: Aug 15, 2024 03:53 PM Reporting Lab: [facility] [place] [facility] [address] [address] Performing Lab: [facility] [place] [facility] [address] [address] [facility] [place] [facility] BASIC METABOLIC PANEL (non-fast ing) CREATININE [MASS/VOLU ME] IN SERUM OR PLASMA 0.84 mg/dL 0.50 - 1.40 08/26 Specimen Type: SERUM No comment entered. Ordering Provider: SYDNEE CLARK Report Released Date/Time: Aug 15, 2024 03:53 PM Reporting Lab: [facility] [address] [facility] [address] Performing Lab: [facility] [address] [facility] [address] [address] [facility] BASIC METABOLIC PANEL (non-fast ing) GLOMERULAR FILTRATION RATE/1.73 SQ M.PREDICTE D [VOLUME RATE/AREA] IN SERUM, PLASMA OR BLOOD BY CREATININE -BASED FORMULA (CKD-EPI 2020) >90mL/m in 60 08/26 Specimen Type: SERUM No comment entered. Ordering Provider: SYDNEE CLARK Report Released Date/Time: Aug 15, 2024 03:53 PM Reporting Lab: [facility] [address] [facility] [address] Performing Lab: [address] [address] [facility] CBC LEUKOCYTES [#/VOLUME] IN BLOOD BY AUTOMATED COUNT 7.30 10*3/uL 4.50 - 11.00 08/26 Specimen Type: BLOOD No comment entered. Ordering Provider: SYDNEE CLARK Report Released Date/Time: Aug 15, 2024 03:53 PM Reporting Lab: [facility] [address] [facility] [address] Performing Lab: [facility] [address] [facility] CBC ERYTHROCYT ES [#/VOLUME] IN BLOOD BY AUTOMATED COUNT 4.63 10*6/uL 4.23 - 5.66 08/26 Specimen Type: BLOOD No comment entered. Ordering Provider: SYDNEE CLARK Report Released Date/Time: Aug 15, 2024 03:53 PM Reporting Lab: [facility] [place] [facility] [address] [address] Performing Lab: [facility] [place] [facility] [address] [facility] [address] [facility] [place] [facility] CBC HEMOGLOBIN [MASS/VOLU ME] IN BLOOD 14.4 g/dL 12.8 - 17 08/26 Specimen Type: BLOOD No comment entered. Ordering Provider: SYDNEE CLARK Report Released Date/Time: Aug 15, 2024 03:53 PM Reporting Lab: [facility] [place] [facility] [address] [address] Performing Lab: [facility] [place] [facility] [address] [facility] [address] [facility] [place] [facility] CBC HEMATOCRIT [VOLUME FRACTION] OF BLOOD BY AUTOMATED COUNT 41.0 39.2 - 50.4 08/26 Specimen Type: BLOOD No comment entered. Ordering Provider: SYDNEE CLARK Report Released Date/Time: Aug 15, 2024 03:53 PM Reporting Lab: [facility] [place] [facility] [address] [facility] [address] Performing Lab: [facility] [place] [facility] [address] [address] [facility] [place] [facility] CBC MCV [ENTITIC VOLUME] BY AUTOMATED COUNT 88.6 fL 82 - 99 08/26 Specimen Type: BLOOD No comment entered. Ordering Provider: SYDNEE CLARK Report Released Date/Time: Aug 15, 2024 03:53 PM Reporting Lab: [facility] [place] [facility] [address] [address] Performing Lab: [facility] [place] [facility] [address] [address] [facility] [place] [facility] CBC MCHC [MASS/VOLU ME] BY AUTOMATED COUNT 35.1 g/dL 30.8 - 35.1 08/26 Specimen Type: BLOOD No comment entered. Ordering Provider: SYDNEE CLARK Report Released Date/Time: Aug 15, 2024 03:53 PM Reporting Lab: [facility] [place] [facility] [address] [address] Performing Lab: [facility] [place] [facility] [address] [facility] [address] [facility] [place] [facility] CBC PLATELETS [#/VOLUME] IN BLOOD BY AUTOMATED COUNT 153 10*3/uL 140 - 360 08/26 Specimen Type: BLOOD No comment entered. Ordering Provider: SYDNEE CLARK Report Released Date/Time: Aug 15, 2024 03:53 PM Reporting Lab: [facility] [place] [facility] [address] [facility] [address] Performing Lab: [facility] [place] [facility] [address] [facility] [address] [facility] [place] [facility] CBC ERYTHROCYT E DISTRIBUTI ON WIDTH [RATIO] BY AUTOMATED COUNT 12.8 12.0 - 16.0 08/26 Specimen Type: BLOOD No comment entered. Ordering Provider: SYDNEE CLARK Report Released Date/Time: Aug 15, 2024 03:53 PM Reporting Lab: [facility] [place] [facility] [address] [address] Performing Lab: [facility] [place] [facility] [address] [address] [facility] [place] [facility] CBC MCH [ENTITIC MASS] BY AUTOMATED COUNT 31.1 pg 26.2 - 32.6 08/26 Specimen Type: BLOOD No comment entered. Ordering Provider: SYDNEE CLARK Report Released Date/Time: Aug 15, 2024 03:53 PM Reporting Lab: [facility] [place] [facility] [address] [address] Performing Lab: [facility] [place] [address] [address] [facility] [place] [facility] LIPID PANEL, NON FASTING CHOLESTERO L [MASS/VOLU ME] IN SERUM OR PLASMA 209 mg/dL 08/26 H Specimen Type: SERUM No comment entered. Ordering Provider: SYDNEE CLARK Report Released Date/Time: Aug 15, 2024 03:53 PM Reporting Lab: [facility] [place] [facility] [address] [facility] [address] Performing Lab: [facility] [address] [facility] [address] [facility] LIPID PANEL, NON FASTING TRIGLYCERI DE [MASS/VOLU ME] IN SERUM OR PLASMA 301 mg/dL 0 - 150 08/26 H Specimen Type: SERUM No comment entered. Ordering Provider: SYDNEE CLARK Report Released Date/Time: Aug 15, 2024 03:53 PM Reporting Lab: [facility] [address] [address] Performing Lab: [facility] [address] [address] [facility] LIPID PANEL, NON FASTING CHOLESTERO L IN LDL [MASS/VOLU ME] IN SERUM OR PLASMA BY CALCULATIO N Reflex to dLDLmg/ dL 0 - 129 08/26 Specimen Type: SERUM No comment entered. Ordering Provider: SYDNEE CLARK Report Released Date/Time: Aug 15, 2024 03:53 PM Reporting Lab: [facility] [place] [address] [address] Performing Lab: [facility] [address] [address] [facility] LIPID PANEL, NON FASTING CHOLESTERO L.TOTAL/CH OLESTEROL IN HDL [MASS RATIO] IN SERUM OR PLASMA 4.5 08/26 Specimen Type: SERUM No comment entered. Ordering Provider: SYDNEE CLARK Report Released Date/Time: Aug 15, 2024 03:53 PM Reporting Lab: [facility] [place] [address] [address] Performing Lab: [place] [facility] [address] [address] [facility] [place] [facility] LIPID PANEL, NON FASTING CHOLESTERO L IN HDL [MASS/VOLU ME] IN SERUM OR PLASMA 46 mg/dL 40 - 60 08/26 Specimen Type: SERUM No comment entered. Ordering Provider: SYDNEE CLARK Report Released Date/Time: Aug 15, 2024 03:53 PM Reporting Lab: [facility] [place] [facility] [address] [address] Performing Lab: [facility] [place] [facility] [address] [address] [facility] [place] [facility] LIPID PANEL, NON FASTING CHOLESTERO L IN LDL [MASS/VOLU ME] IN SERUM OR PLASMA BY DIRECT ASSAY 124 mg/dL 08/26 H Specimen Type: SERUM No comment entered. Ordering Provider: SYDNEE CLARK Report Released Date/Time: Aug 15, 2024 03:53 PM Reporting Lab: [facility] [place] [address] [address] Performing Lab: [facility] [place] [address] [address] [facility] [place] [facility] LIVER FUNCTION PROTEIN [MASS/VOLU ME] IN SERUM OR PLASMA 7.6 g/dL 6.0 - 8.3 08/26 Specimen Type: SERUM No comment entered. Ordering Provider: SYDNEE CLARK Report Released Date/Time: Aug 15, 2024 03:53 PM Reporting Lab: [facility] [place] [address] [address] Performing Lab: [facility] [place] [address] [address] [facility] [place] [facility] LIVER FUNCTION ALBUMIN [MASS/VOLU ME] IN SERUM OR PLASMA 4.1 g/dL 3.5 - 5.0 08/26 Specimen Type: SERUM No comment entered. Ordering Provider: SYDNEE CLARK Report Released Date/Time: Aug 15, 2024 03:53 PM Reporting Lab: [facility] [place] [facility] [address] [facility] [address] Performing Lab: [facility] [place] [facility] [address] [address] [facility] [place] [facility] LIVER FUNCTION ALKALINE PHOSPHATAS E [ENZYMATIC ACTIVITY/V OLUME] IN SERUM OR PLASMA 54 U/L 40 - 150 08/26 Specimen Type: SERUM No comment entered. Ordering Provider: SYDNEE CLARK Report Released Date/Time: Aug 15, 2024 03:53 PM Reporting Lab: [facility] [place] [facility] [address] [facility] [address] Performing Lab: [facility] [place] [facility] [address] [address] [facility] [place] [facility] LIVER FUNCTION ASPARTATE AMINOTRANS FERASE [ENZYMATIC ACTIVITY/V OLUME] IN SERUM OR PLASMA 25 U/L 5 - 34 08/26 Specimen Type: SERUM No comment entered. Ordering Provider: SYDNEE CLARK Report Released Date/Time: Aug 15, 2024 03:53 PM Reporting Lab: [facility] [place] [facility] [address] [facility] [address] Performing Lab: [facility] [place] [facility] [address] [facility] [address] [facility] [place] [facility] LIVER FUNCTION ALANINE AMINOTRANS FERASE [ENZYMATIC ACTIVITY/V OLUME] IN SERUM OR PLASMA 6 U/L 08/26 Specimen Type: SERUM No comment entered. Ordering Provider: SYDNEE CLARK Report Released Date/Time: Aug 15, 2024 03:53 PM Reporting Lab: [facility] [place] [facility] [address] [facility] [address] Performing Lab: [facility] [place] [facility] [address] [address] [facility] [place] [facility] LIVER FUNCTION BILIRUBIN. TOTAL [MASS/VOLU ME] IN SERUM OR PLASMA 0.8 mg/dL 0.2 - 1.2 08/26 Specimen Type: SERUM No comment entered. Ordering Provider: SYDNEE CLARK Report Released Date/Time: Aug 15, 2024 03:53 PM Reporting Lab: [facility] [place] [facility] [address] [address] Performing Lab: [facility] [place] [facility] [address] [facility] [address] [facility] [place] [facility] PT & INR (COUMADIN ) INR IN PLATELET POOR PLASMA BY COAGULATIO N ASSAY 1.5 08/26 Specimen Type: PLASMA No comment entered. Ordering Provider: SYDNEE CLARK Report Released Date/Time: Aug 26, 2024 02:15 PM Reporting Lab: [facility] [place] [facility] [address] [address] Performing Lab: [facility] [place] [facility] [address] [address] [facility] [facility] PT & INR (COUMADIN ) PROTHROMBI N TIME (PT) 16.1 s 10.0 - 13.1 08/26 H Specimen Type: PLASMA No comment entered. Ordering Provider: SYDNEE CLARK Report Released Date/Time: Aug 26, 2024 02:15 PM Reporting Lab: [facility] [place] [facility] [address] [facility] [address] Performing Lab: [facility] [place] [facility] [address] [address] [facility] [place] [facility] BASIC METABOLIC PANEL (non-fast ing) UREA NITROGEN [MASS/VOLU ME] IN SERUM OR PLASMA 23 mg/dL 7 - 25 02/07 Specimen Type: SERUM No comment entered. Ordering Provider: SYDNEE CLARK Report Released Date/Time: Feb 02, 2024 10:46 AM Reporting Lab: [facility] [place] [facility] [address] [address] Performing Lab: [facility] [place] [facility] [address] [address] [facility] [place] [facility] BASIC METABOLIC PANEL (non-fast ing) GLUCOSE [MASS/VOLU ME] IN SERUM OR PLASMA 112 mg/dL 65 - 100 02/07 H Specimen Type: SERUM No comment entered. Ordering Provider: SYDNEE CLARK Report Released Date/Time: Feb 02, 2024 10:46 AM Reporting Lab: [address] [address] Performing Lab: [address] [address] [facility] BASIC METABOLIC PANEL (non-fast ing) SODIUM [MOLES/VOL UME] IN SERUM OR PLASMA 137 mmol/L 135 - 145 02/07 Specimen Type: SERUM No comment entered. Ordering Provider: SYDNEE CLARK Report Released Date/Time: Feb 02, 2024 10:46 AM Reporting Lab: [address] [address] Performing Lab: [address] [address] [facility] BASIC METABOLIC PANEL (non-fast ing) POTASSIUM [MOLES/VOL UME] IN SERUM OR PLASMA 3.9 mmol/L 3.5 - 5.0 02/07 Specimen Type: SERUM No comment entered. Ordering Provider: SYDNEE CLARK Report Released Date/Time: Feb 02, 2024 10:46 AM Reporting Lab: [address] [address] Performing Lab: [address] [address] [facility] BASIC METABOLIC PANEL (non-fast ing) CHLORIDE [MOLES/VOL UME] IN SERUM OR PLASMA 100 mmol/L 100 - 110 02/07 Specimen Type: SERUM No comment entered. Ordering Provider: SYDNEE CLARK Report Released Date/Time: Feb 02, 2024 10:46 AM Reporting Lab: [address] [address] Performing Lab: [facility] [address] [address] [facility] BASIC METABOLIC PANEL (non-fast ing) CARBON DIOXIDE, TOTAL [MOLES/VOL UME] IN SERUM OR PLASMA 27 meq/L 20 - 30 02/07 Specimen Type: SERUM No comment entered. Ordering Provider: SYDNEE CLARK Report Released Date/Time: Feb 02, 2024 10:46 AM Reporting Lab: [facility]N [facility] [address] [address] Performing Lab: [facility] [address] [address] [facility] BASIC METABOLIC PANEL (non-fast ing) CREATININE [MASS/VOLU ME] IN SERUM OR PLASMA 1.01 mg/dL 0.50 - 1.40 02/07 Specimen Type: SERUM No comment entered. Ordering Provider: SYDNEE CLARK Report Released Date/Time: Feb 02, 2024 10:46 AM Reporting Lab: [facility] [address] [address] Performing Lab: [facility] [facility] [address] [address] [facility] BASIC METABOLIC PANEL (non-fast ing) GLOMERULAR FILTRATION RATE/1.73 SQ M.PREDICTE D [VOLUME RATE/AREA] IN SERUM, PLASMA OR BLOOD BY CREATININE -BASED FORMULA (CKD-EPI 2020) 79 mL/min 60 02/07 Specimen Type: SERUM No comment entered. Ordering Provider: SYDNEE CLARK Report Released Date/Time: Feb 02, 2024 10:46 AM Reporting Lab: [facility] [address] [address] Performing Lab: [address] [address] [facility] CBC LEUKOCYTES [#/VOLUME] IN BLOOD BY AUTOMATED COUNT 5.84 10*3/uL 4.50 - 11.00 02/07 Specimen Type: BLOOD No comment entered. Ordering Provider: SYDNEE CLARK Report Released Date/Time: Feb 02, 2024 10:46 AM Reporting Lab: [facility] [address] [facility] [address] Performing Lab: [facility] [place] [facility] [address] [facility] [address] [facility] CBC ERYTHROCYT ES [#/VOLUME] IN BLOOD BY AUTOMATED COUNT 4.62 10*6/uL 4.23 - 5.66 02/07 Specimen Type: BLOOD No comment entered. Ordering Provider: SYDNEE CLARK Report Released Date/Time: Feb 02, 2024 10:46 AM Reporting Lab: [facility] [place] [address] [address] Performing Lab: [facility] [address] [address] [facility] CBC HEMOGLOBIN [MASS/VOLU ME] IN BLOOD 14.3 g/dL 12.8 - 17 02/07 Specimen Type: BLOOD No comment entered. Ordering Provider: SYDNEE CLARK Report Released Date/Time: Feb 02, 2024 10:46 AM Reporting Lab: [facility] [address] [address] Performing Lab: [facility] [address] [address] [facility] CBC HEMATOCRIT [VOLUME FRACTION] OF BLOOD BY AUTOMATED COUNT 40.9 39.2 - 50.4 02/07 Specimen Type: BLOOD No comment entered. Ordering Provider: SYDNEE CLARK Report Released Date/Time: Feb 02, 2024 10:46 AM Reporting Lab: [facility] [address] [address] Performing Lab: [facility] [address] [address] [facility] CBC MCV [ENTITIC VOLUME] BY AUTOMATED COUNT 88.5 fL 82 - 99 02/07 Specimen Type: BLOOD No comment entered. Ordering Provider: SYDNEE CLARK Report Released Date/Time: Feb 02, 2024 10:46 AM Reporting Lab: [facility] [place] [facility] [address] [facility] [address] Performing Lab: [facility] [place] [facility] [address] [address] [facility] CBC MCHC [MASS/VOLU ME] BY AUTOMATED COUNT 35.0 g/dL 30.8 - 35.1 02/07 Specimen Type: BLOOD No comment entered. Ordering Provider: SYDNEE CLARK Report Released Date/Time: Feb 02, 2024 10:46 AM Reporting Lab: [facility] [address] [address] Performing Lab: [facility] [address] [address] [facility] CBC PLATELETS [#/VOLUME] IN BLOOD BY AUTOMATED COUNT 162 10*3/uL 140 - 360 02/07 Specimen Type: BLOOD No comment entered. Ordering Provider: SYDNEE CLARK Report Released Date/Time: Feb 02, 2024 10:46 AM Reporting Lab: [facility] [place] [address] [address] Performing Lab: [facility] [place] [facility] [address] [facility] [facility] [address] [facility] CBC ERYTHROCYT E DISTRIBUTI ON WIDTH [RATIO] BY AUTOMATED COUNT 12.4 12.0 - 16.0 02/07 Specimen Type: BLOOD No comment entered. Ordering Provider: SYDNEE CLARK Report Released Date/Time: Feb 02, 2024 10:46 AM Reporting Lab: [facility] [place] [address] [address] Performing Lab: [facility] [place] [address] [place] [address] [facility] CBC MCH [ENTITIC MASS] BY AUTOMATED COUNT 31.0 pg 26.2 - 32.6 02/07 Specimen Type: BLOOD No comment entered. Ordering Provider: SYDNEE CLARK Report Released Date/Time: Feb 02, 2024 10:46 AM Reporting Lab: [facility] [place] [address] [address] Performing Lab: [facility] [place] [facility] [address] [facility] [address] [facility] LIPID PANEL, NON FASTING CHOLESTERO L [MASS/VOLU ME] IN SERUM OR PLASMA 161 mg/dL 02/07 Specimen Type: SERUM No comment entered. Ordering Provider: SYDNEE CLARK Report Released Date/Time: Feb 02, 2024 10:46 AM Reporting Lab: [facility] [address] [address] Performing Lab: [facility] [place] [address] [address] [facility] LIPID PANEL, NON FASTING TRIGLYCERI DE [MASS/VOLU ME] IN SERUM OR PLASMA 102 mg/dL 0 - 150 02/07 Specimen Type: SERUM No comment entered. Ordering Provider: SYDNEE CLARK Report Released Date/Time: Feb 02, 2024 10:46 AM Reporting Lab: [facility] [place] [facility] [address] [facility] [facility] [address] Performing Lab: [facility] [place] [address] [address] [facility] LIPID PANEL, NON FASTING CHOLESTERO L IN LDL [MASS/VOLU ME] IN SERUM OR PLASMA BY CALCULATIO N 101 mg/dL 0 - 129 02/07 Specimen Type: SERUM No comment entered. Ordering Provider: SYDNEE CLARK Report Released Date/Time: Feb 02, 2024 10:46 AM Reporting Lab: [facility] [place] [facility] [address] [facility] [address] Performing Lab: [facility] [place] [facility] [address] [address] [facility] [place] [facility] LIPID PANEL, NON FASTING CHOLESTERO L.TOTAL/CH OLESTEROL IN HDL [MASS RATIO] IN SERUM OR PLASMA 4.0 02/07 Specimen Type: SERUM No comment entered. Ordering Provider: SYDNEE CLARK Report Released Date/Time: Feb 02, 2024 10:46 AM Reporting Lab: [facility] [place] [facility] [address] [facility] [address] Performing Lab: [facility] [place] [facility] [address] [address] [facility] [place] [facility] LIPID PANEL, NON FASTING CHOLESTERO L IN HDL [MASS/VOLU ME] IN SERUM OR PLASMA 40 mg/dL 40 - 60 02/07 Specimen Type: SERUM No comment entered. Ordering Provider: SYDNEE CLARK Report Released Date/Time: Feb 02, 2024 10:46 AM Reporting Lab: [facility] [place] [facility] [address] [address] Performing Lab: [facility] [place] [facility] [address] [address] [facility] [place] [facility] LIVER FUNCTION PROTEIN [MASS/VOLU ME] IN SERUM OR PLASMA 7.2 g/dL 6.0 - 8.3 02/07 Specimen Type: SERUM No comment entered. Ordering Provider: SYDNEE CLARK Report Released Date/Time: Feb 02, 2024 10:46 AM Reporting Lab: [facility] [place] [facility] [address] [address] Performing Lab: [facility] [place] [facility] [address] [address] [facility] [place] [facility] LIVER FUNCTION ALBUMIN [MASS/VOLU ME] IN SERUM OR PLASMA 4.0 g/dL 3.5 - 5.0 02/07 Specimen Type: SERUM No comment entered. Ordering Provider: SYDNEE CLARK Report Released Date/Time: Feb 02, 2024 10:46 AM Reporting Lab: [facility] [address] [address] Performing Lab: [facility] [address] [address] [facility] [place] [facility] LIVER FUNCTION ALKALINE PHOSPHATAS E [ENZYMATIC ACTIVITY/V OLUME] IN SERUM OR PLASMA 60 U/L 40 - 150 02/07 Specimen Type: SERUM No comment entered. Ordering Provider: SYDNEE CLARK Report Released Date/Time: Feb 02, 2024 10:46 AM Reporting Lab: [facility] [place] [facility] [address] [address] Performing Lab: [facility] [place] [facility] [address] [address] [facility] [place] [facility] LIVER FUNCTION ASPARTATE AMINOTRANS FERASE [ENZYMATIC ACTIVITY/V OLUME] IN SERUM OR PLASMA 26 U/L 5 - 34 02/07 Specimen Type: SERUM No comment entered. Ordering Provider: SYDNEE CLARK Report Released Date/Time: Feb 02, 2024 10:46 AM Reporting Lab: [facility] [place] [facility] [address] [address] Performing Lab: [facility] [place] [facility] [address] [address] [facility] [place] LIVER FUNCTION ALANINE AMINOTRANS FERASE [ENZYMATIC ACTIVITY/V OLUME] IN SERUM OR PLASMA 7 U/L 02/07 Specimen Type: SERUM No comment entered. Ordering Provider: SYDNEE CLARK Report Released Date/Time: Feb 02, 2024 10:46 AM Reporting Lab: [facility] [place] [facility] [address] [address] Performing Lab: [facility] [place] [facility] [address] [address] [facility] [place] [facility] LIVER FUNCTION BILIRUBIN. TOTAL [MASS/VOLU ME] IN SERUM OR PLASMA 1.1 mg/dL 0.2 - 1.2 02/07 Specimen Type: SERUM No comment entered. Ordering Provider: SYDNEE CLARK Report Released Date/Time: Feb 02, 2024 10:46 AM Reporting Lab: [facility] [address] [facility] [address] Performing Lab: [facility] [place] [facility] [address] [address] [facility] THYROID T4 FREE(FT4) THYROXINE (T4) FREE [MASS/VOLU ME] IN SERUM OR PLASMA 0.96 ng/dL 0.6 - 1.6 08/14 Specimen Type: SERUM No comment entered. Ordering Provider: SYDNEE CLARK Report Released Date/Time: Aug 03, 2023 08:54 AM Reporting Lab: [facility] [place] [facility] [address] [address] Performing Lab: [facility] [place] [facility] [address] [facility] [address] [facility] [place] [facility] Vital Signs Combined list of inpatient and outpatient Vital Signs from Department of Defense and Veterans Affairs, ranging from 12 months to all on record, depending upon the facility. Vital Sign Value Date Comments Source SYSTOLIC BLOOD PRESSURE 140 08/26/20 24 13:47:04 [facility] [place] [facility] DIASTOLIC BLOOD PRESSURE 87 024 13:47:04 [facility] [place] [facility] PULSE OXIMETRY 97 08/26/2024 13:47:04 [facility] WEIGHT 189 08/26/2024 13:47:04 [facility] BMI 27kg/m2 08/26/2024 13:47:04 [facility] PAIN 5 08/26/2024 13:47:04 [facility] HEIGHT 70 08/26/2024 13:47:04 [facility] TEMPERATURE 97.5 08/26/2024 13:47:04 [facility] PULSE 81 08/26/2024 13:47:04 [facility] RESPIRATION 20 08/26/2024 13:47:04 [facility] SYSTOLIC BLOOD PRESSURE 152 02/15/20 24 10:40:16 [facility] DIASTOLIC BLOOD PRESSURE 97 024 10:40:16 [facility] PULSE OXIMETRY 99 02/15/2024 10:40:16 [facility] WEIGHT 192 02/15/2024 10:40:16 [facility] BMI 28kg/m2 02/15/2024 10:40:16 [facility] PAIN 0 02/15/2024 10:40:16 [facility] HEIGHT 70 02/15/2024 10:40:16 [facility] TEMPERATURE 97.1 02/15/2024 10:40:16 [facility] PULSE 52 02/15/2024 10:40:16 [facility] RESPIRATION 20 02/15/2024 10:40:16 [facility] Encounters Combined list of: 1) Encounters from Department of Veterans Affairs facilities going back up to thelast 18 months. 2) Encounters from the Department of Defense facilities going back up to 280 months. Location Location Details Encounter Type Encounter Number Reason For Visit Attending Provider ADM Date DC Date Status Disposition Source [facility] Encounter [id number] 04/25 [facility]counter [id number] 06/01 [facility]counter [id number] 06/02 [facility] Encounter [id number] 06/02 [facility] Encounter [id number] 07/26 [facility] Encounter [id number] 07/27 [facility] Encounter [id number] 08/09 [facility] OFFICE O/P EST LOW 20-29 MIN [id number] Diagnos is: ICD-10- CM Z23 Encount er for immuniz ation<b r/> Dylan CLARK 08/14 [facility] Encounter [id number] 10/19 [facility] Out[facility] Encounter [id number] 12/14 [facility] Encounter [id number] 12/21 [facility] Encounter [id number] 02/08 [facility] Encounter [id number] 02/08 [facility] OFFICE O/P EST LOW 20 MIN [id number] Diagnos is: ICD-10- CM I10 Essenti al (primar y) hyperte nsion<b r/> Dylan CLARK 02/14 [facility] Encounter [id number] 03/26 [facility] Encounter [id number] 06/11 [facility] Out[facility] Encounter [id number] [facility] Out[facility] Encounter [id number] 06/12 [facility] Out[facility] Encounter [id number] 06/12 [facility] Out[facility] Encounter [id number] 06/18 [facility] Encounter [id number] 08/09 [facility] Out[facility] Encounter [id number] 08/26 [facility] OFFICE O/P EST MOD 30 MIN [id number] Diagnos is: ICD-10- CM I48.91 Unspeci fied atrial fibrill ation<b r/> Dylan CLARKELVA Ramses 08/26 [facility] [place] ([id number]) MTMS BY PHARM EST 15 MIN [id number] Diagnos is: ICD-10- CM 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
ALEXANDRE QUEZADA 08/27 [facility] ([id number]) Social History Combined list of available smoking, tobacco, and other social history from Department of Defense and Veterans Affairs facilities. Social History Type Response Date Comment Sourc e Tobacco smoking status NHIS NC-TOBACCO FORMER USER 08/26/2024 [facility] [place] [facility] History of tobacco use NC-TOBACCO QUIT 15 YRS OR MORE 08/26/2024 [facility] [place] [facility] History of tobacco use NC-TOBACCO FORMER USER 08/14/2023 [facility] [place] [facility] History of tobacco use NC-TOBACCO FORMER USER 08/22/2022 [facility] [place] [facility] History of tobacco use NC-TOBACCO QUIT 15 YRS OR MORE 03/20/2020 [facility] [place] [facility] History of tobacco use NC-TOBACCO FORMER USER [facility] [place] [facility] Plan of Care List of future care activities from Department of Veterans Affairs facilities. Additional future care activities may be listed in the Assessment and Plan section. Date/Time Care Activity Care Activity Detail Facili ty 02/26/2025 AMBULATORY - MEDICINE AMBULATORY - MEDICI NE [facility] [place] [facility] 08/26/2024 Consult Order COMM[facility]ITY [facility]ARE-N EUROLOGY Cons [employer] Developer[employer] [facility] [place] [facility]
--- OUTSIDE RECORDS SUMMARY | 2024-09-18 00:55 | XMS_ITS | Encounter Summary ---
Author Name [facility] [facility] [place] Address [address] [place] [id number] Care Team Providers Care Conventional Machinist Name Role Phone BRAN POPE Primary Care Provider [facility] Insurance Providers: All historical and current Section Date Range: From patient's date of to the date document was created. This section includes the names of all active insurance providers for the patient. Insurance Provider Type of Coverage Plan Name Start of Policy Coverage End of Policy Coverage Group Number Member ID Insurance Provider's Telephone Number Policy Butler's Name Patient's Relationship to Policy Butler AARP [facility] (WNR) MEDICARE ADVANTAGE [facility] (WNR) Oct 09, 2020 [id number] ANTHONY,WIL MANJEET PATIENT [facility] (WNR) MEDICARE ADVANTAGE [facility] (WNR) Oct 09, 2020 [id number] ANTHONY,WIL MANJEET PATIENT [facility] (WNR) MEDICARE ADVANTAGE [facility] (WNR) Apr 08, 2018 [id number] ANTHONY,WIL MANJEET PATIENT [facility] (WNR) MEDICARE ADVANTAGE [facility] (WNR) Apr 08, 2018 [id number] [facility] CRUZ MANJEET PATIENT Selected Encounter This section includes the information on record at [place] for the Encounter. Date/Time Encounter Type Encounter Description Reason Pro vider Source Dec 15, 2023 01:16 PM Outpatient Encounter ADMIN PAT ACTIVTIES (MASNONCT) IHE Encounter Template Text not used by [place] Plan of Treatment: Future Appointments (+ 6 months) and Future Tests (+/- 45 days) The Plan of Treatment section includes future care activities for the patient from all [place] [facility] This section includes future appointments and future orders which are active, pending or scheduled. Future Appointments This section includes appointments that were scheduled to occur 6 months from the date of the Encounter, up to a maximum of 20 appointments. The data comes from all [place] treatment facilities. Appointment Date/Time Appointment Type Appointme nt Facility Name Dec 22, 2023 11:00 AM AMBULATORY - MEDICINE [facility] [place] [facility] February 15, 2024 11:00 AM AMBULATORY - MEDICINE [facility] [place] [facility] Social History: Smoking Status (Most current) and Tobacco Use (All prior to encounter date) This section includes the most current, and the historical, smoking and tobacco- related health factors from the [place] facility where the Encounter took place. Current Smoking Status This section includes the most current smoking, or tobacco-related health factor, from the [place] facility where the Encounter took place. Date/Time Current Smoking Status Comment Facil ity Aug 14, 2023 01:00 PM VA-TOBACCO FORMER USER [place] [facility] [place] [facility] Tobacco Use History This section includes a history of the smoking, or tobacco-related health factors, that were collected on or before the date of the Encounter. The data comes from the [place] facility where the Encounter took place. Date/Time Smoking Status/Tobacco Use Comment F acility Aug 14, 2023 01:00 PM VA-TOBACCO QUIT 15 YRS OR MORE [place] [facility] [place] [facility] Aug 22, 2022 03:00 PM VA-TOBACCO FORMER USER [place] [facility] [place] [facility] Aug 22, 2022 03:00 PM VA-TOBACCO QUIT 15 YRS OR MORE [facility] [place] [facility] Mar 20, 2020 03:08 PM VA-TOBACCO FORMER USER [facility] [place] [facility] Mar 20, 2020 03:08 PM VA-TOBACCO QUIT 15 YRS OR MORE [place] [facility] [place] [facility] Nov 16, 2018 10:37 AM VA-TOBACCO FORMER USER [facility] [place] [facility] Nov 16, 2018 10:37 AM VA-TOBACCO QUIT [facility] YRS [facility] Encounter Notes: All associated encounter notes This section contains the clinical notes associated to the Encounter. Date/Time Encounter Note(s) Provider Source Dec 15, 2023 01:35 PM ADDENDUM: LOCAL TITLE: Addendum STANDARD TITLE: ADDENDUM DATE OF NOTE: DEC 15, 2023@13:35:50 ENTRY DATE: DEC 15, 2023@13:35:51 AUTHOR: TIFFANY FELIX EXP COSIGNER: URGENCY: STATUS: COMPLETED Consult entered, pending provider signature. /es/ TIFFANY FELIX RN REGISTERED NURSE Signed: 12/15/2023 13:35 Receipt Acknowledged By: 12/15/2023 13:37 /es/ Bran Pope [facility], [employer] WORK[employer]-, CNL Primary Care Nurse Practitioner === --- Original Document --- 12/15/23 CCC: SCHEDULING ADMINISTRATION: Patient Demographics Patient Name: BRAN CRUZ Patient Primary Phone: [phone] Patient Primary Address: [address] [place] [address] Patient : 1950 Patient Age: 73 Call Back Number: [phone] Caller/Recipient Relation to Patient: Self Administrative Administrative Note Reason: Other Administrative Note Comments: PT REQUESTING REFERRAL TO [facility] /es/ ALFRED LLOYD 1 CCC AMSA Signed: 12/15/2023 13:16 Receipt Acknowledged By: * AWAITING SIGNATURE * RAMON ALMENDAREZ 12/15/2023 13:35 /oscar/ TIFFANY FELIX RN REGISTERED NURSE for BERTA ADELEANIBALTIFFANY PENA [facility] Dec 15, 2023 01:16 PM ADMINISTRATIVE NOTE: LOCAL TITLE: CCC: SCHEDULING ADMINISTRATION STANDARD TITLE: ADMINISTRATIVE NOTE DATE OF NOTE: DEC 15, 2023@13:16:17 ENTRY DATE: DEC 15, 2023@13:16:17 AUTHOR: ALFRED PYLE COSIGNER: URGENCY: STATUS: COMPLETED CCC: SCHEDULING ADMINISTRATION Has ADDENDA Patient Demographics Patient Name: BRAN CRUZ Patient Primary Phone: [phone] Patient Primary [address]: [address] [place] [address] [place] [address] Patient : 1950 Patient Age: 73 Call Back Number: [phone] Caller/Recipient Relation to Patient: Self Administrative Administrative Note Reason: Other Administrative Note Comments: PT REQUESTING REFERRAL TO [facility] /oscar/ ALFRED LLOYD [facility] Signed: 12/15/2023 13:16 Receipt Acknowledged By: 12/19/2023 09:35 /oscar/ Ramon Almendarez, [employer] Mechanic DRONE PILOT,PRIMARY CARE 12/15/2023 13:35 /oscar/ TIFFANY FELIX, RN REGISTERED NURSE for BERTA FERMIN 12/15/2023 ADDENDUM STATUS: COMPLETED Consult entered, pending provider signature. /oscar/ TIFFANY FELIX, RN REGISTERED NURSE Signed: 12/15/2023 13:35 Receipt Acknowledged By: 12/15/2023 13:37 /oscar/ Bran Pope DNP, SEX WORKER [employer], CNL Primary Care Nurse Practitioner ALFRED PYLE [facility]
--- OUTSIDE RECORDS SUMMARY | 2024-09-18 00:55 | XMS_ITS | Encounter Summary ---
Author Name [place] Address [address] [place] [address] Care Team Providers Care Crown Ironer Operator Name Role Phone ALISON CLARK Primary Care Provider Unavaila ble Insurance Providers: All historical and current Section [...] Name Patient's Relationship to Policy Butler AARP [facility] (WNR) MEDICARE ADVANTAGE [facility] (WNR) Oct 09, 2020 [id number] ANTHONYUMM ChamberlainM PATIENT [facility] MCR (WNR) MEDICARE ADVANTAGE MCR (WNR) Oct 09, 2020 [id number] 06 ANTHONYUMM MANJEET PATIENT [facility] MCR (WNR) MEDICARE ADVANTAGE [facility] (WNR) Apr 08, 2018 [id number] 06 ANTHONY,WIL MANJEET PATIENT [facility] (WNR) MEDICARE ADVANTAGE [facility] (WNR) Apr 08, 2018 [id number] 06 UMM CRUZ PATIENT Selected Encounter This section includes the information on record at [place] for the Encounter. Date/Time Encounter Type Encounter Description Reason Pro vider Source IHE Encounter Template Text not used by [place]
--- OUTSIDE RECORDS SUMMARY | 2024-09-18 00:55 | XMS_ITS ---
Author Name [place] Address [address] [place] [address] Care Team Providers Care Trainman Name Role Phone ALISON CLARK Primary Care [...] Butler's Name Patient's Relationship to Policy Butler [facility] (WNR) MEDICARE ADVANTAGE MCR (WNR) Oct 09, 2020 [id number] ANTHONYUMM ChamberlainM PATIENT [facility] (WNR) MEDICARE ADVANTAGE [facility] (WNR) Oct 09, 2020 [id number] 06 ANTHONY,WIL MANJEET PATIENT [facility] (WNR) MEDICARE ADVANTAGE [facility] (WNR) Apr 08, 2018 [id number] 06 ANTHONY,WIL MANJEET PATIENT [facility] (WNR) MEDICARE ADVANTAGE M[facility] (WNR) Apr 08, 2018 [id number] 06 ANTHONYUMM BURROUGHS PATIENT Selected Encounter This section includes the information on record at [place] for the Encounter. Date/Time Encounter Type Encounter Description Reason Pro vider Source February 09, 2024 09:51 AM Outpatient Encounter PRIMARY CARE/MEDICINE IHE Encounter Template Text not used by [place] Plan of Treatment: Future Appointments (+ 6 months) and Future Tests (+/- 45 days) The Plan of Treatment section includes future care activities for the patient from all [place] treatmentfacilities. This section includes future appointments and future orders which are active, pending or scheduled. Future Appointments This section includes appointments that were scheduled to occur 6 months from the date of the Encounter, up to a maximum of 20 appointments. The data comes from all [place] treatment facilities. Appointment Date/Time Appointment Type Appointme nt Facility Name February 15, 2024 11:00 AM AMBULATORY - MEDICINE [facility] Aug 09, 2024 01:30 PM AMBULATORY MEDICINE [facility] Lab Results: +/- 30 days of the encounter This section includes the Chemistry and Hematology Lab Results on record with [place] for the patient. Radiology Reports and Pathology Reports are provided separately, in subsequent sections. Lab Results This section contains the Chemistry/Hematology Results that were resulted 30 days before or 30 daysafter the date of the Encounter. Date/Time Source Result Type Result - Unit Interpretation Reference Range Comment February 08, 2024 09:18 AM [facility] CBC Specimen Type: BLOOD No comment entered. Ordering Provider: VEGA CLARK Report Released Date/Time: Feb 02, 2024 10:46 AM Reporting Lab: [facility] [address] [facility] [address] Performing Lab: [address] [address] WBC 5.84 10*3/uL 4.50-11.00 RBC 4.62 10*6/uL 4.23-5.66 HGB 14.3 g/dL 12.8-17 HCT 40.9 39.2-50.4 MCV 88.5 fL 82-99 MCHC 35.0 g/dL 30.8-35.1 PLT 162 10*3/uL 140-360 RDW-CV 12.4 12.0-16.0 MCH 31.0 pg 26.2-32.6 February 08, 2024 09:18 AM [facility] BASIC METABOLIC PANEL (non-fasting) Specimen Type: SERUM No comment entered. Ordering Provider: VEGA CLARK Report Released Date/Time: Feb 02, 2024 10:46 AM Reporting Lab: [facility] [address] [facility] [address] Performing Lab: [facility] [address] [facility] [address] UREA NITROGEN 23 mg/dL 7-25 GLUCOSE 112 mg/dL H 65-100 SODIUM 137 mmol/L 135-145 POTASSIUM 3.9 mmol/L 3.5-5.0 CHLORIDE 100 mmol/L 100-110 CO2 27 meq/L 20-30 CREATININE, Serum 1.01 mg/dL 0.50-1.40 eGFR(CKD-EPI 2020) 79 mL/min >60 February 08, 2024 09:18 AM [facility] LIPID PANEL, NON FASTING Specimen Type: SERUM No comment entered. Ordering Provider: VEGA CLARK Report Released Date/Time: Feb 02, 2024 10:46 AM Reporting Lab: [address] [address] Performing Lab: [address] [address] CHOLESTEROL 161 mg/dL TRIGLYCERIDE 102 mg/dL 0-150 LDL calculated 101 mg/dL 0-129 CHOL/HDL 4.0 HDL CHOLESTEROL 40 mg/dL 40-60 February 08, 2024 09:18 AM [facility] LIVER FUNCTION Specimen Type: SERUM No comment entered. Ordering Provider: VEGA CLARK Report Released Date/Time: Feb 02, 2024 10:46 AM Reporting Lab: [facility] [address] [facility] [address] Performing Lab: [address] [address] PROTEIN,TOTAL 7.2 g/dL 6.0-8.3 ALBUMIN 4.0 g/dL 3.5-5.0 ALKALINE PHOSPHATASE 60 U/L 40-150 AST 26 U/L 5-34 ALT 7 U/L BILIRUBIN, TOTAL 1.1 mg/dL 0.2-1.2 Social History: Smoking Status (Most current) and Tobacco Use (All prior to encounter date) This section includes the most current, and the historical, smoking and tobacco- related health factors from the [place] facility where the Encounter took place. Current Smoking Status This section includes the most current smoking, or tobacco-related health factor, from the [place] facility where the Encounter took place. Date/Time Current Smoking Status Comment Keven ity Aug 14, 2023 01:00 PM VA-TOBACCO QUIT 15 YRS OR MORE [place] [facility] Tobacco Use History This section includes a history of the smoking, or tobacco-related health factors, that were collected on or before the date of the Encounter. The data comes from the [place] facility where the Encounter took place. Date/Time Smoking Status/Tobacco Use Comment F acyolanda Aug 14, 2023 01:00 PM VA-TOBACCO QUIT 15 YRS OR MORE [place] [facility] [place] [facility] Aug 22, 2022 03:00 PM VA-TOBACCO FORMER USER [place] [facility] [place] [facility] Aug 22, 2022 03:00 PM VA-TOBACCO QUIT 15 YRS OR MORE [place] [facility] [place] [facility] Mar 20, 2020 03:08 PM VA-TOBACCO FORMER USER [place] [facility] [place] [facility] Mar 20, 2020 03:08 PM VA-TOBACCO QUIT 15 YRS OR MORE [place] [facility] [place] [facility] Nov 16, 2018 10:37 AM VA-TOBACCO FORMER USER [place] [facility] [place] [facility] Nov 16, 2018 10:37 AM VA-TOBACCO QUIT 15 YRS OR MORE [place] [facility] [place] [facility] Encounter Notes: All associated encounter notes This section contains the clinical notes associated to the Encounter. Date/Time Encounter Note(s) Provider Source February 09, 2024 09:51 AM NURSING NOTE: LOCAL TITLE: NURSING/TELEPHONE STANDARD TITLE: NURSING NOTE DATE OF NOTE: FEBRUARY 09, 2024@09:51 ENTRY DATE: FEBRUARY 09, 2024@09:51:42 AUTHOR: RAMON ALMENDAREZ COSIGNER: URGENCY: STATUS: COMPLETED vet was called, a message was left on the answering machine, inform vet he has an appt with PCP on 02-15-2024@1100,also labs have been ordered,any questions vet mayuse the call back # from message. /oscar/ Ramon Almendarez [facility] Specialist MANAGER OUTREACH,PRIMARY CARE Signed: 02/09/2024 09:53 RAMON ALMENDAREZ [place] [facility]
--- OUTSIDE RECORDS SUMMARY | 2024-09-18 00:56 | XMS_ITS ---
Author Name [place] Address [address] [place] [address] Care Team Providers Care Cafe Attendant Name Role Phone ALISON CLARK Primary Care [...] Butler's Name Patient's Relationship to Policy Butler [facility] (WNR) MEDICARE ADVANTAGE MCR (WNR) Oct 09, 2020 [id number] ANTHONYUMM ChamberlainM PATIENT [facility] (WNR) MEDICARE ADVANTAGE [facility] (WNR) Oct 09, 2020 [id number] 06 ANTHONY,WIL MANJEET PATIENT [facility] (WNR) MEDICARE ADVANTAGE [facility] (WNR) Apr 08, 2018 [id number] 06 ANTHONY,WIL MANJEET PATIENT [facility] (WNR) MEDICARE ADVANTAGE MCR (WNR) Apr 08, 2018 [id number] 06 ANTHONYUMM BURROUGHS PATIENT Selected Encounter This section includes the information on record at [place] for the Encounter. Date/Time Encounter Type Encounter Description Reason Pro vider Source February 09, 2024 01:18 PM Outpatient Encounter PRIMARY CARE/MEDICINE IHE Encounter Template [...] 15, 2024 11:00 AM AMBULATORY - MEDICINE [facility] Aug 09, 2024 01:30 PM AMBULATORY MEDICINE [facility] Lab Results: +/- 30 days of the [...] Range Comment February 08, 2024 09:18 AM [facility] CBC Specimen Type: BLOOD No comment entered. Ordering Provider: VEGA CLARK Report Released Date/Time: Feb 02, 2024 10:46 AM Reporting Lab: [facility] [address] [facility] [address] Performing Lab: [address] [address] WBC 5.84 10*3/uL 4.50-11.00 RBC 4.62 10*6/uL 4.23-5.66 HGB 14.3 g/dL 12.8-17 HCT 40.9 39.2-50.4 MCV 88.5 fL 82-99 MCHC 35.0 g/dL 30.8-35.1 PLT 162 10*3/uL 140-360 RDW-CV 12.4 12.0-16.0 MCH 31.0 pg 26.2-32.6 February 08, 2024 09:18 AM [facility] BASIC METABOLIC PANEL (non-fasting) Specimen Type: SERUM No comment entered. Ordering Provider: VEGA CLARK Report Released Date/Time: Feb 02, 2024 10:46 AM Reporting Lab: [facility] [address] [facility] [address] Performing Lab: [address] [address] UREA NITROGEN 23 mg/dL 7-25 GLUCOSE 112 mg/dL H 65-100 SODIUM 137 mmol/L 135-145 POTASSIUM 3.9 mmol/L 3.5-5.0 CHLORIDE 100 mmol/L 100-110 CO2 27 meq/L 20-30 CREATININE, Serum 1.01 mg/dL 0.50-1.40 eGFR(CKD-EPI 2020) 79 mL/min >60 February 08, 2024 09:18 AM [facility] LIVER FUNCTION Specimen Type: SERUM No comment entered. Ordering Provider: VEGA CLARK Report Released Date/Time: Feb 02, 2024 10:46 AM Reporting Lab: [address] [address] Performing Lab: [address] [address] PROTEIN,TOTAL 7.2 g/dL 6.0-8.3 ALBUMIN 4.0 g/dL 3.5-5.0 ALKALINE PHOSPHATASE 60 U/L 40-150 AST 26 U/L 5-34 ALT 7 U/L BILIRUBIN, TOTAL 1.1 mg/dL 0.2-1.2 February 08, 2024 09:18 AM [facility] LIPID PANEL, NON FASTING Specimen Type: SERUM No comment entered. Ordering Provider: VEGA CLRAK Report Released Date/Time: Feb 02, 2024 10:46 AM Reporting Lab: [address] [address] Performing Lab: [address] [address] CHOLESTEROL 161 mg/dL TRIGLYCERIDE 102 mg/dL 0-150 LDL calculated 101 mg/dL 0-129 CHOL/HDL 4.0 HDL CHOLESTEROL 40 mg/dL 40-60 Social History: Smoking Status (Most current) and [...] 14, 2023 01:00 PM VA-TOBACCO FORMER USER [place] [facility] [place] [facility] Tobacco Use History This section includes a history of the smoking, or tobacco-related health factors, that were collected on or before the date of the Encounter. The data comes from the [place] facility where the Encounter took place. Date/Time Smoking Status/Tobacco Use Comment F acility Aug 14, 2023 01:00 PM VA-TOBACCO QUIT 15 YRS OR MORE [place] [facility] [place] [facility] Aug 22, 2022 03:00 PM VA-TOBACCO FORMER USER [place] [facility] [place] [facility] Aug 22, 2022 03:00 PM VA-TOBACCO QUIT 15 YRS OR MORE [place] [facility] [place] [facility] Mar 20, 2020 03:08 PM VA-TOBACCO FORMER USER [place] [facility] [place] [facility] Mar 20, 2020 03:08 PM VA-TOBACCO QUIT 15 YRS OR MORE [place] [facility] [place] [facility] Nov 16, 2018 10:37 AM VA-TOBACCO FORMER USER [place] [facility] [place] [facility] Nov 16, 2018 10:37 AM VA-TOBACCO QUIT 15 YRS OR MORE [place] [facility] [facility] Encounter Notes: All associated encounter notes This section contains the clinical notes associated to the Encounter. Date/Time Encounter Note(s) Provider Source February 09, 2024 01:18 PM NURSING NOTE: LOCAL TITLE: NURSING/TELEPHONE STANDARD TITLE: NURSING NOTE DATE OF NOTE: FEBRUARY 09, 2024@13:18 ENTRY DATE: FEBRUARY 09, 2024@13:18:31 AUTHOR: RAMON ALMENDAREZ COSIGNER: URGENCY: STATUS: COMPLETED vet was called, HT spoke with vet inform he has an appt with PCP on 02-15-2024@ 1100,also labs have been orderd,vet acknowledge these instructions. /oscar/ Ramon Almendarez, Health Cutting Machine Tender Helper CURAM DEVELOPER,PRIMARY CARE Signed: 02/09/2024 13:19 RAMON ALMENDAREZ [facility]
--- OUTSIDE RECORDS SUMMARY | 2024-09-18 00:58 | XMS_ITS | Encounter Summary ---
Author Name [place] Address [address] [place] [address] Care Team Providers Care Farmworker Fruit Name Role Phone ALISON CLARK Primary Care Provider Unavaila [facility] Insurance Providers: All historical and current Section [...] Name Patient's Relationship to Policy Butler AARP [facility] (WNR) MEDICARE ADVANTAGE [facility] (WNR) Oct 09, 2020 [id number] ANTHONY,WIL MANJEET PATIENT [facility] (WNR) MEDICARE ADVANTAGE [facility] (WNR) Oct 09, 2020 [id number] 06 ANTHONY,WIL MANJEET PATIENT [facility] (WNR) MEDICARE ADVANTAGE [facility] (WNR) Apr 08, 2018 [id number] 06 ANTHONY,WIL MANJEET PATIENT [facility] (WNR) MEDICARE ADVANTAGE [facility] (WNR) Apr 08, 2018 [id number] 06 ANTHONYUMM SIMONM PATIENT Selected Encounter This section includes the information on record at [place] for the Encounter. Date/Time Encounter Type Encounter Description Reason Pro vider Source Jun 11, 2024 03:14 PM Outpatient Encounter ADMIN PAT ACTIVTIES (MASNONCT) IHE Encounter Template Text not used by [place] Plan of Treatment: Future Appointments (+ 6 months) and Future Tests (+/- 45 days) The Plan of Treatment section includes future care activities for the patient from [facility] [place] [facility] This section includes future appointments and future orders which are active, pending or scheduled. Future Appointments This section includes appointments that were scheduled to occur 6 months from the date of the Encounter, up to a maximum of 20 appointments. The data comes from all [facility] facilities. Appointment Date/Time Appointment Type Appointme nt Facility Name Aug 09, 2024 01:30 PM AMBULATORY - MEDICINE [facility] Aug 26, 2024 02:00 PM AMBULATORY - MEDICINE [facility] Active, Pending, and Scheduled Orders This section includes a listing of several types of active, pending, and scheduled orders, including clinic medications orders, diagnostic test orders, procedure orders and consult orders; where the start date of the order is 45 days before the date of the Encounter or 45 days after the date of theEncounter. The data comes from all [facility]. Test Date/Time Test Type Test Details Facility Name May 06, 2024 12:00 AM Laboratory - Chemi stry Order OCCULT BLOOD FIT X1 SCREEN (MFP ONLY) STOOL FECES SP [facility] Social History: Smoking Status (Most current) and Tobacco Use (All prior to encounter date) This section includes the most current, and the historical, smoking and tobacco- related health factors from the [place] facility where the Encounter took place. Current Smoking Status This section includes the most current smoking, or tobacco-related health factor, from the [place] facility where the Encounter took place. Date/Time Current Smoking Status Comment Facil ity Aug 14, 2023 01:00 PM VA-TOBACCO FORMER USER [facility] Tobacco Use History This section includes a history of the smoking, or tobacco-related health factors, that were collected on or before the date of the Encounter. The data comes from the [place] facility where the Encounter took place. Date/Time Smoking Status/Tobacco Use Comment F acility Aug 14, 2023 01:00 PM [place]-TOBACCO QUIT 15 YRS OR MORE [facility] Aug 22, 2022 03:00 PM VA-TOBACCO FORMER USER [place] [facility] [place] [facility] Aug 22, 2022 03:00 PM VA-TOBACCO QUIT 15 YRS OR MORE [place] [facility] [place] [facility] Mar 20, 2020 03:08 PM VA-TOBACCO FORMER USER [place] [facility] [place] [facility] Mar 20, 2020 03:08 PM VA-TOBACCO QUIT 15 YRS OR MORE [place] [facility] [place] [facility] Nov 16, 2018 10:37 AM VA-TOBACCO FORMER USER [place] [facility] [place] [facility] Nov 16, 2018 10:37 AM VA-TOBACCO QUIT 15 YRS OR MORE [place] [facility] [place] [facility] Encounter Notes: All associated encounter notes This section contains the clinical notes associated to the Encounter. Date/Time Encounter Note(s) Provider Source Jun 11, 2024 03:14 PM ADMINISTRATIVE NOTE: LOCAL TITLE: CCC: SCHEDULING ADMINISTRATION STANDARD TITLE: ADMINISTRATIVE NOTE DATE OF NOTE: JUN 11, 2024@15:14:59 ENTRY DATE: JUN 11, 2024@15:14:59 AUTHOR: RAJ VILLASENOR COSIGNER: URGENCY: STATUS: COMPLETED CCC: SCHEDULING ADMINISTRATION Has ADDENDA Patient Demographics Patient Name: ALISON CRUZ Patient Primary Phone: [phone] Patient Primary Address: [address] [place] [address] Patient : 1950 Patient Age: 74 Caller/Recipient Relation to Patient: Self Administrative Administrative Note Reason: Other Administrative Note Comments: [place] is returning a call to [place]. Vet states that he sees a community PCP and has a coloscopy every three years and believes he does not need to have the test [facility] at this [facility] with the [facility]. Vet states his mobile phone is the better phone for a call back to discuss. IMPORTANT: This note was created by [facility] staff. Please do not alert the staff member by adding them as a signer for future communications. Alerts are not monitored by this user. /oscar/ RAJ VILLASENOR Signed: 06/11/2024 15:15 Receipt Acknowledged By: 06/12/2024 09:36 /es/ BERTA HER REGISTERED NURSE 06/13/2024 09:18 /es/ Ramon Moses, [facility] RELIGIOUS HEALER,PRIMARY CARE 06/12/2024 ADDENDUM STATUS: COMPLETED Rn called on cell phone no answer left message return call /es/ BERTA HER REGISTERED NURSE Signed: 06/12/2024 09:38 RAJ VILLASENOR CN[facility]L [facility]
--- OUTSIDE RECORDS SUMMARY | 2024-09-18 00:58 | XMS_ITS ---
Author Name [place] Address [address] [place] [address] Care Team Providers Care School Photographs Detailer Name Role Phone ALISON CLARK Primary Care [...] Butler's Name Patient's Relationship to Policy Butler [facility] (WNR) MEDICARE ADVANTAGE [facility] (WNR) Oct 09, 2020 [id number] ANTHONYUMM ChamberlainM PATIENT [facility] (WNR) MEDICARE ADVANTAGE [facility] (WNR) Oct 09, 2020 [id number] 06 ANTHONY,WIL MANJEET PATIENT [facility] (WNR) MEDICARE ADVANTAGE [facility] (WNR) Apr 08, 2018 [id number] 06 ANTHONYUMM MANJEET PATIENT [facility] (WNR) MEDICARE ADVANTAGE [facility] (WNR) Apr 08, 2018 [id number] 06 UMM CRUZ MANJEET PATIENT Selected Encounter This section includes the information on record at [place] for the Encounter. Date/Time Encounter Type Encounter Description Reason Pro vider Source Dec 22, 2023 12:00 AM Outpatient Encounter COMMUNITY CARE CONSULT IHE Encounter Template Text not used by [place] Plan of Treatment: Future Appointments (+ 6 months) and Future Tests (+/- 45 days) The Plan of Treatment section includes future care activities for the patient from all [place] [facility] This section includes future appointments and future orders which are active, pending or scheduled. Future Appointments This section includes appointments that were scheduled to occur 6 months from the date of the Encounter, up to a maximum of 20 appointments. The data comes from all [place] treatment facilities. Appointment Date/Time Appointment Type Appointme nt Facility Name February 15, 2024 11:00 AM AMBULATORY - MEDICINE [facility] Social History: Smoking Status (Most current) and Tobacco Use (All prior to encounter date) This section includes the most current, and the historical, smoking and tobacco- related health factors from the [place] facility where the Encounter took place. Current Smoking Status This section includes the most current smoking, or tobacco-related health factor, from the [place] facility where the Encounter took place. Date/Time Current Smoking Status Comment Facil ity Aug 14, 2023 01:00 PM VA-TOBACCO FORMER USER [place] [facility] Tobacco Use History This section includes a history of the smoking, or tobacco-related health factors, that were collected on or before the date of the Encounter. The data comes from the [place] facility where the Encounter took place. Date/Time Smoking Status/Tobacco Use Comment F acility Aug 14, 2023 01:00 PM VA-TOBACCO QUIT 15 YRS OR MORE [place] [facility] [place] [facility] Aug 22, 2022 03:00 PM VA-TOBACCO FORMER USER [place] [facility] [facility] Aug 22, 2022 03:00 PM VA-TOBACCO QUIT 15 YRS OR MORE [place] [facility] [facility] Mar 20, 2020 03:08 PM VA-TOBACCO FORMER USER [place] [facility] [facility] Mar 20, 2020 03:08 PM VA-TOBACCO QUIT 15 YRS OR MORE [place] [facility] [facility] Nov 16, 2018 10:37 AM VA-TOBACCO FORMER USER [place] [facility] [facility] Nov 16, 2018 10:37 AM VA-TOBACCO QUIT 15 YRS OR MORE [place] [facility] [place] [facility] Encounter Notes: All associated encounter notes This section contains the clinical notes associated to the Encounter. Date/Time Encounter Note(s) Provider Source Dec 22, 2023 12:00 AM NONVA CONSULT: LOCAL TITLE: COMMUNITY CARE-CONSULT RESULT NOTE STANDARD TITLE: NONVA CONSULT DATE OF NOTE: DEC 22, 2023 ENTRY DATE: APR 08, 2024@14:09:01 AUTHOR: JERI ALEXANDER EXP COSIGNER: URGENCY: STATUS: COMPLETED VistA Imaging - Scanned Document SCANNED DOCUMENT SIGNATURE NOT REQUIRED Electronically Filed: 04/08/2024 by: JERI ALEXANDER LICENSED PRACTICAL NURSE JERI ALEXANDER [place] [facility]
--- OUTSIDE RECORDS SUMMARY | 2024-09-18 00:58 | XMS_ITS | Encounter Summary ---
Author Name [facility] [place] Address [address] [place] [address] Care Team Providers Care Waste Removalist Name Role Phone ALISON CLARK Primary Care Provider Unavaila [facility] Insurance Providers: All historical and current Section [...] Name Patient's Relationship to Policy Butler AARP [facility] (WNR) MEDICARE ADVANTAGE [facility] (WNR) Oct 09, 2020 [id number] 06 ANTHONY,WIL MANJEET PATIENT [facility] (WNR) MEDICARE ADVANTAGE [facility] (WNR) Oct 09, 2020 [id number] ANTHONY,WIL MANJEET PATIENT [facility] (WNR) MEDICARE ADVANTAGE [facility] (WNR) Apr 08, 2018 [id number] 06 ANTHONY,WIL MANJEET PATIENT [facility] (WNR) MEDICARE ADVANTAGE [facility] (WNR) Apr 08, 2018 [id number] 06 ANTHONYUMMM PATIENT Selected Encounter This section includes the information on record at [place] for the Encounter. Date/Time Encounter Type Encounter Description Reason Pro vider Source Jun 12, 2024 10:05 AM Outpatient Encounter ADMIN PAT ACTIVTIES (MASNONCT) IHE Encounter Template Text not used by [place] Plan of Treatment: Future Appointments (+ 6 months) and Future Tests (+/- 45 days) The Plan of Treatment section includes future care activities for the patient from all [facility]. This section includes future appointments and future orders which are active, pending or scheduled. Future Appointments This section includes appointments that were scheduled to occur 6 months from the date of the Encounter, up to a maximum of 20 appointments. The data comes from all [facility] facilities. Appointment Date/Time Appointment Type Appointme nt Facility Name Aug 09, 2024 01:30 PM AMBULATORY - MEDICINE [facility] Aug 26, 2024 02:00 PM AMBULATORY - MEDICINE [facility] Active, Pending, and Scheduled Orders This section includes a listing of several types of active, pending, and scheduled orders, including clinic medications orders, diagnostic test orders, procedure orders and consult orders; where the start date of the order is 45 days before the date of the Encounter or 45 days after the date of theEncounter. The data comes from all [facility]. Test Date/Time Test Type Test Details Facility Name May 06, 2024 12:00 AM Laboratory - Chemi stry Order OCCULT BLOOD FIT X1 SCREEN (MFP ONLY) STOOL FECES SP [facility] Social History: Smoking Status (Most current) and Tobacco Use (All prior to encounter date) This section includes the most current, and the historical, smoking and tobacco- related health factors from the [place] facility where the Encounter took place. Current Smoking Status This section includes the most current smoking, or tobacco-related health factor, from the [place] facility where the Encounter took place. Date/Time Current Smoking Status Comment Facil ity Aug 14, 2023 01:00 PM VA-TOBACCO FORMER USER [facility] Tobacco Use History This section includes a history of the smoking, or tobacco-related health factors, that were collected on or before the date of the Encounter. The data comes from the [place] facility where the Encounter took place. Date/Time Smoking Status/Tobacco Use Comment F acility Aug 14, 2023 01:00 PM [place]-TOBACCO QUIT 15 YRS OR MORE [facility] Aug 22, 2022 03:00 PM VA-TOBACCO FORMER USER [facility] [place] [facility] Aug 22, 2022 03:00 PM VA-TOBACCO QUIT 15 YRS OR MORE [facility] [place] [facility] Mar 20, 2020 03:08 PM VA-TOBACCO FORMER USER [facility] [place] [facility] Mar 20, 2020 03:08 PM VA-TOBACCO QUIT 15 YRS OR MORE [facility] [place] [facility] Nov 16, 2018 10:37 AM VA-TOBACCO FORMER USER [facility] [place] [facility] Nov 16, 2018 10:37 AM VA-TOBACCO QUIT 15 YRS OR MORE [facility] [place] [facility] Encounter Notes: All associated encounter notes This section contains the clinical notes associated to the Encounter. Date/Time Encounter Note(s) Provider Source Jun 12, 2024 10:06 AM ADMINISTRATIVE NOT E: LOCAL TITLE: CCC: SCHEDULING ADMINISTRATION STANDARD TITLE: ADMINISTRATIVE NOTE DATE OF NOTE: JUN 12, 2024@10:06:03 ENTRY DATE: JUN 12, 2024@10:06:04 AUTHOR: DEMETRA SOLOMON EXP COSIGNER: URGENCY: STATUS: COMPLETED CCC: SCHEDULING ADMINISTRATION Has ADDENDA Patient Demographics Patient Name: ALISON CRUZ Patient Primary Phone: [phone] Patient Primary Address: [address] [place] [address] Patient : 1950 Patient Age: 74 Caller/Recipient Relation to Patient: Self Administrative Administrative Note Reason: Returned Call Administrative Note Comments: Patient is returning call to PACT Team. Patient can be reached at . IMPORTANT: This note was created by [facility] Contact [facility] staff. Please do not alert the staff member by adding them as a signer for future communications. Alerts are not monitored by this user. /oscar/ DEMETRA LLOYD 1 LYNDSAY AMSA Signed: 06/12/2024 10:06 Receipt Acknowledged By: 06/13/2024 09:00 /oscar/ BERTA HER REGISTERED NURSE 06/13/2024 09:10 /oscar/ Ramon Moses, Health Application Support Manager AVIONICS TEST TECHNICIAN,PRIMARY CARE 06/13/2024 ADDENDUM STATUS: COMPLETED Rn returned call. [place] reports colonscopy is last 3 years unsure of practice but was completed by Nehemiah Cotto [facility] medical rust. Fax request for medical records /es/ BERTA HER REGISTERED NURSE Signed: 06/13/2024 09:00 DEMETRA SOLOMON [facility]
--- OUTSIDE RECORDS SUMMARY | 2024-09-18 00:58 | XMS_ITS | Encounter Summary ---
Author Name [facility] [place] Organization [place] Address [address] [place] [address] Care Team Providers Care Early Childhood Name Role Phone ALISON CLARK Primary Care [...] Butler's Name Patient's Relationship to Policy [facility] (WNR) MEDICARE ADVANTAGE [facility] (WNR) Oct 09, 2020 [id number] 06 ANTHONYUMM ChamberlainM PATIENT [facility] (WNR) MEDICARE ADVANTAGE [facility] (WNR) Oct 09, 2020 [id number] 06 ANTHONY,WIL MANJEET PATIENT [facility] (WNR) MEDICARE ADVANTAGE [facility] (WNR) Apr 08, 2018 [id number] 06 ANTHONY,WIL MANJEET PATIENT [facility] (WNR) MEDICARE ADVANTAGE [facility] (WNR) Apr 08, 2018 [id number] 06 ANTHONY,UMM SIMONM PATIENT Selected Encounter This section includes the information on record at [place] for the Encounter. Date/Time Encounter Type Encounter Description Reason Pro vider Source Jun 18, 2024 12:00 AM Outpatient Encounter EVENT (HISTORICAL) IHE Encounter Template Text not used by [place] Plan of Treatment: Future Appointments (+ 6 months) and Future Tests (+/- 45 days) The Plan of Treatment section includes future care activities for the patient from all [place] [facility] This section includes future appointments and future orders which are active, pending or scheduled. Future Appointments This section includes appointments that were scheduled to occur 6 months from the date of the Encounter, up to a maximum of 20 appointments. The data comes from all [facility]. Appointment Date/Time Appointment Type Appointme nt Facility Name Aug 09, 2024 01:30 PM AMBULATORY - MEDICINE [facility] Aug 26, 2024 02:00 PM AMBULATORY - MEDICINE [facility] Active, Pending, and Scheduled Orders This section includes a listing of several types of active, pending, and scheduled orders, including clinic medications orders, diagnostic test orders, procedure orders and consult orders; where the start date of the order is 45 days before the date of the Encounter or 45 days after the date of theEncounter. The data comes from all [facility]. Test Date/Time Test Type Test Details Facility Name May 06, 2024 12:00 AM Laboratory - Chemi stry Order OCCULT BLOOD FIT X1 SCREEN (MFP ONLY) STOOL FECES SP [facility] Immunizations: All administered on the encounter date This section contains immunizations associated to the Encounter. Immunization Series Date Issued Reaction Comments INFLUENZA, UNSPECIFIED FORMULATION Jun 18, 2024 per statement fr om vet Social History: Smoking Status (Most current) and Tobacco Use (All prior to encounter date) This section includes the most current, and the historical, smoking and tobacco- related health factors from the [place] facility where the Encounter took place. Current Smoking Status This section includes the most current smoking, or tobacco-related health factor, from the [place] facility where the Encounter took place. Date/Time Current Smoking Status Comment Facil ity Aug 14, 2023 01:00 PM [place]-TOBACCO QUIT 15 YRS OR MORE [facility] Tobacco Use History This section includes a history of the smoking, or tobacco-related health factors, that were collected on or before the date of the Encounter. The data comes from the [place] facility where the Encounter took place. Date/Time Smoking Status/Tobacco Use Comment F acility Aug 14, 2023 01:00 PM VA-TOBACCO QUIT 15 YRS OR MORE [facility] [place] [facility] Aug 22, 2022 03:00 PM VA-TOBACCO FORMER USER [facility] [place] [facility] Aug 22, 2022 03:00 PM VA-TOBACCO QUIT 15 YRS OR MORE [place] [facility] [place] [facility] Mar 20, 2020 03:08 PM VA-TOBACCO FORMER USER [facility] [place] [facility] Mar 20, 2020 03:08 PM VA-TOBACCO QUIT 15 YRS OR MORE [place] [facility] [place] [facility] Nov 16, 2018 10:37 AM VA-TOBACCO FORMER USER [facility] [place] [facility] Nov 16, 2018 10:37 AM VA-TOBACCO QUIT 15 YRS OR MORE [place] [facility] [place] [facility]
--- OUTSIDE RECORDS SUMMARY | 2024-09-18 00:58 | XMS_ITS | Encounter Summary ---
Author Name [facility] [place] Organization [place] Address [address] [place] [address] Care Team Providers Care Ingot Stripper Name Role Phone ALISON CLARK Primary Care Provider Unavaila [facility] Insurance Providers: All historical and current Section [...] Name Patient's Relationship to Policy Butler AARP [facility] (WNR) MEDICARE ADVANTAGE [facility] (WNR) Oct 09, 2020 [id number] 06 ANTHONY,WIL MANJEET PATIENT [facility] (WNR) MEDICARE ADVANTAGE [facility] (WNR) Oct 09, 2020 [id number] 06 ANTHONY,WIL MANJEET PATIENT [facility] (WNR) MEDICARE ADVANTAGE [facility] (WNR) Apr 08, 2018 [id number] 06 ANTHONY,WIL MANJEET PATIENT [facility] (WNR) MEDICARE ADVANTAGE [facility] (WNR) Apr 08, 2018 [id number] 06 ANTHONYUMM SIMONM PATIENT Selected Encounter This section includes the information on record at [place] for the Encounter. Date/Time Encounter Type Encounter Description Reason Pro vider Source Jun 11, 2024 10:19 AM Outpatient Encounter ADMIN PAT ACTIVTIES (MASNONCT) IHE Encounter Template Text not used by [place] Plan of Treatment: Future Appointments (+ 6 months) and Future Tests (+/- 45 days) The Plan of Treatment section includes future care activities for the patient from [facility] [place] [facility]. This section includes future appointments and future orders which are active, pending or scheduled. Future Appointments This section includes appointments that were scheduled to occur 6 months from the date of the Encounter, up to a maximum of 20 appointments. The data comes from all [facility] facilities. Appointment Date/Time Appointment Type Appointme nt Facility Name Aug 09, 2024 01:30 PM AMBULATORY - [facility]ICINE [facility] Aug 26, 2024 02:00 PM AMBULATORY - MEDICINE [facility] Active, Pending, and Scheduled Orders This section includes a listing of several types of active, pending, and scheduled orders, including clinic medications orders, diagnostic test orders, procedure orders and consult orders; where the start date of the order is 45 days before the date of the Encounter or 45 days after the date of theEncounter. The data comes from all [facility] [place]. Test Date/Time Test Type Test Details Facility Name May 06, 2024 12:00 AM Laboratory - Chemi stry Order OCCULT BLOOD FIT X1 SCREEN (MFP ONLY) STOOL FECES SP [facility] Social History: Smoking Status (Most current) and Tobacco Use (All prior to encounter date) This section includes the most current, and the historical, smoking and tobacco- related health factors from the [place] facility where the Encounter took place. Current Smoking Status This section includes the most current smoking, or tobacco-related health factor, from the [place] facility where the Encounter took place. Date/Time Current Smoking Status Comment Facil ity Aug 14, 2023 01:00 PM VA-TOBACCO FORMER USER [facility] Tobacco Use History This section includes a history of the smoking, or tobacco-related health factors, that were collected on or before the date of the Encounter. The data comes from the [place] facility where the Encounter took place. Date/Time Smoking Status/Tobacco Use Comment F acility Aug 14, 2023 01:00 PM [place]-TOBACCO QUIT 15 YRS OR MORE [facility] Aug 22, 2022 03:00 PM VA-TOBACCO FORMER USER [facility] [place] [facility] Aug 22, 2022 03:00 PM VA-TOBACCO QUIT 15 YRS OR MORE [facility] [place] [facility] Mar 20, 2020 03:08 PM VA-TOBACCO FORMER USER [facility] [place] [facility] Mar 20, 2020 03:08 PM VA-TOBACCO QUIT 15 YRS OR MORE [facility] [place] [facility] Nov 16, 2018 10:37 AM VA-TOBACCO FORMER USER [facility] [place] [facility] Nov 16, 2018 10:37 AM VA-TOBACCO QUIT 15 YRS OR MORE [facility] [place] [facility] Encounter Notes: All associated encounter notes This section contains the clinical notes associated to the Encounter. Date/Time Encounter Note(s) Provider Source Jun 11, 2024 10:20 AM ADMINISTRATIVE NOT E: LOCAL TITLE: CCC: SCHEDULING ADMINISTRATION STANDARD TITLE: ADMINISTRATIVE NOTE DATE OF NOTE: JUN 11, 2024@10:20 ENTRY DATE: JUN 11, 2024@10:20 AUTHOR: HANK FONSECA COSIGNER: URGENCY: STATUS: COMPLETED CCC: SCHEDULING ADMINISTRATION Has ADDENDA Patient Demographics Patient Name: ALISON CRUZ Patient Primary Phone: [phone] Patient Primary [address]: [address] [place] [address] Patient : 1950 Patient Age: 74 Caller/Recipient Relation to Patient: Self Administrative Administrative Note Comments: stated they received a colonoscopy test kit in the mail and they believe they may have received it in error. Please reach out to discuss # IMPORTANT: This note was created by [facility] Clinical Contact Center staff. Please do not alert the staff member by adding them as a signer for future communications. Alerts are not monitored by this user. /oscar/ HANK LLOYD 1 CCC AMSA Signed: 06/11/2024 10:20 Receipt Acknowledged By: 06/11/2024 14:39 /es/ Ramon Moses, Health Embossing Machine Operator TRAVELING CRANE OPERATOR,PRIMARY CARE 06/11/2024 13:39 /es/ BERTA HER REGISTERED NURSE for BERTA FERMIN 06/11/2024 ADDENDUM STATUS: COMPLETED TELEPHONE CALL Called at PATIENT PHONE - Regarding FIT test Voice message was left requesting a callback /es/ BERTA HER REGISTERED NURSE Signed: 06/11/2024 13:41 HANK FONSECA [facility]
--- OUTSIDE RECORDS SUMMARY | 2024-09-18 00:58 | XMS_ITS | Encounter Summary ---
Author Name [facility] [place] Organization [place] Address [address] [place] [id number] Care Team Providers Care Cardiac Exercise Specialist Name Role Phone BRAN POPE Primary Care Provider Unavaila ble Insurance Providers: [...] Butler's Name Patient's Relationship to Policy Butler [facility] (WNR) MEDICARE ADVANTAGE [facility]CR (WNR) Oct 09, 2020 [id number] [phone] ANTHONYUMM ChamberlainM PATIENT [facility] (WNR) MEDICARE ADVANTAGE MCR (WNR) Oct 09, 2020 [id number] ANTHONY,WIL MANJEET PATIENT [facility] (WNR) MEDICARE ADVANTAGE MCR (WNR) Apr 08, 2018 [id number] ANTHONY,WIL MANJEET PATIENT [facility] (WNR) MEDICARE ADVANTAGE MCR ([facility]) Apr 08, 2018 [id number] ANTHONYUMM PATIENT Selected Encounter This section includes the information on record at [place] for the Encounter. Date/Time Encounter Type Encounter Description Reason Provider Source Aug 27, 2024 09:39 AM MTMS BY PHARM EST 15 MIN TELEPHONE/ANCILL NGUYỄN ICD-10-CM Z79.01 alf (current) use of anticoagulants JAVIER QUEZADA IHE Encounter Template Text not used by [place] Assessments - Encounter Diagnoses This section includes the primary and secondary diagnoses documented for the Encounter. Date/Time Primary/Secondary Diagnosis Diagnosis Name Provider Source Aug 27, 2024 09:39 AM PRIMARY alf (current) use of anticoagulants PILARJAVIER CHAPA [facility] ([id number]) Plan of Treatment: Future Appointments (+ 6 months) and Future Tests (+/- 45 days) The Plan of Treatment section includes future care activities for the patient from all [place] treatmentfacilities. This section includes future appointments and future orders which are active, pending or scheduled. Active, Pending, and Scheduled Orders This section includes a listing of several types of active, pending, and scheduled orders, including clinic medications orders, diagnostic test orders, procedure orders and consult orders; where the start date of the order is 45 days before the date of the Encounter or 45 days after the date of theEncounter. The data comes from all [place] treatment facilities. Test Date/Time Test Type Test Details Facility Name Aug 26, 2024 02:17 PM Consult Order [facility]-NEUROLOGY Cons Mercantile Reporter's Choice [facility] Lab Results: +/- 30 days of the encounter This section includes the Chemistry and Hematology Lab Results on record with [place] for the patient. Radiology Reports and Pathology Reports are provided separately, in subsequent sections. Lab Results This section contains the Chemistry/Hematology Results that were resulted 30 days before or 30 daysafter the date of the Encounter. Date/Time Source Result Type Result - Unit Interpretation Reference Range Comment Aug 26, 2024 02:35 PM [facility] Specimen Type: BLOOD No comment entered. Ordering Provider: VEGA POPE Report Released Date/Time: Aug 15, 2024 03:53 PM Reporting Lab: [facility] [address] [facility] [address] Performing Lab: [address] [address] WBC 7.30 10*3/uL 4.50-11.00 RBC 4.63 10*6/uL 4.23-5.66 HGB 14.4 g/dL 12.8-17 HCT 41.0 39.2-50.4 MCV 88.6 fL 82-99 MCHC 35.1 g/dL 30.8-35.1 PLT 153 10*3/uL 140-360 RDW-CV 12.8 12.0-16.0 MCH 31.1 pg 26.2-32.6 Aug 26, 2024 02:35 PM [facility] BASIC METABOLIC PANEL (non-fasting) Specimen Type: SERUM No comment entered. Ordering Provider: VEGA POPE Report Released Date/Time: Aug 15, 2024 03:53 PM Reporting Lab: [address] [address] Performing Lab: [address] [address] UREA NITROGEN 22 mg/dL 7-25 GLUCOSE 91 mg/dL 65-100 SODIUM 137 mmol/L 135-145 POTASSIUM 4.0 mmol/L 3.5-5.0 CHLORIDE 104 mmol/L 100-110 CO2 22 meq/L 20-30 CREATININE, Serum 0.84 mg/dL 0.50-1.40 eGFR(CKD-EPI 2020) >90 mL/min >60 Aug 26, 2024 02:35 PM [facility] LIPID PANEL, NON FASTING Specimen Type: SERUM No comment entered. Ordering Provider: VEGA POPE Report Released Date/Time: Aug 15, 2024 03:53 PM Reporting Lab: [address] [address] Performing Lab: [address] [address] CHOLESTEROL 209 mg/dL H TRIGLYCERIDE 301 mg/dL H 0-150 LDL calculated Reflex to dLDL mg/dL 0-129 CHOL/HDL 4.5 HDL CHOLESTEROL 46 mg/dL 40-60 LDL DIRECT 124 mg/dL H Aug 26, 2024 02:35 PM [facility] LIVER FUNCTION Specimen Type: SERUM No comment entered. Ordering Provider: VEGA POPE Report Released Date/Time: Aug 15, 2024 03:53 PM Reporting Lab: [facility] [address] [facility] [address] Performing Lab: [address] [address] PROTEIN,TOTAL 7.6 g/dL 6.0-8.3 ALBUMIN 4.1 g/dL 3.5-5.0 ALKALINE PHOSPHATASE 54 U/L 40-150 AST 25 U/L 5-34 ALT 6 U/L BILIRUBIN, TOTAL 0.8 mg/dL 0.2-1.2 Aug 26, 2024 02:35 PM [facility] PT & INR (COUMADIN) Specimen Type: PLASMA No comment entered. Ordering Provider: VEGA POPE Report Released Date/Time: Aug 26, 2024 02:15 PM Reporting Lab: [address] [address] Performing Lab: [address] [address] INR 1.5 PROTIME 16.1 s H 10.0-13.1 Encounter Notes: All associated encounter notes This section contains the clinical notes associated to the Encounter. Date/Time Encounter Note(s) Provider Source Aug 27, 2024 09:56 AM ADDENDUM: LOCAL TITLE: Addendum STANDARD TITLE: ADDENDUM DATE OF NOTE: AUG 27, 2024@09:56:20 ENTRY DATE: AUG 27, 2024@09:56:22 AUTHOR: JAVIER QUEZADA EXP COSIGNER: URGENCY: STATUS: COMPLETED ACC Consult complete. Order for apixaban 5mg BID can be entered. Thank you! /oscar/ Javier Quezada, PharmD Clinical Manager Program Signed: 08/27/2024 09:57 Receipt Acknowledged By: 08/27/2024 12:13 /oscar/ Bran Pope DNP, BUSHWALKING GUIDE-BC, CNL Primary Care Nurse Practitioner --- Original Document --- 08/27/24 CONSULT REPORT/ANTICOAGULATION CLINIC: Initial Note: Anticoagulation DOAC Agent Progress Note Reason for visit: Initial Education for Apixaban/Eliquis Indication: atrial fibrillation Start Date: around 08/13/24 Expected Duration: indefinite Referring Provider: PCP Bran Pope Patient Contact: Patient has given permission to leave anticoagulation message on answering machine or with person listed. Subjective: Lurdes states he was started on Eliquis 5mg BID about 2 weeks ago. He was diagnosed with AFib. [place] takes his first dose in the morning upon waking at around 06:00-07:00 and takes the second dose 12 hours from then. He denies any missed doses. Denies any ADRs or s/sx bleeding. Lurdes will drink EtOH occasionally. Denies use of OTC supplements/NSAIDs. He will use Tylenol if needs something for pain. Denies any upcoming procedures. Labs: CBC (last 90 days): CBC Collection DT Specimen Test Name Result Units Ref Range 08/26/2024 14:35 BLOOD WBC 7.30 K/cmm 4.50 - 11.00 08/26/2024 14:35 BLOOD RBC 4.63 M/cmm 4.23 - 5.66 08/26/2024 14:35 BLOOD HGB 14.4 g/dL 12.8 - 17 08/26/2024 14:35 BLOOD HCT 41.0 % 39.2 - 50.4 08/26/2024 14:35 BLOOD MCV 88.6 fl 82 - 99 08/26/2024 14:35 BLOOD MCHC 35.1 g/dL 30.8 - 35.1 08/26/2024 14:35 BLOOD PLT 153 K/cmm 140 - 360 08/26/2024 14:35 BLOOD RDW-CV 12.8 % 12.0 - 16.0 SrCr (last 6 weeks): CREATININE-EGFR 08/26/24 14:35 0.84 CRCL IBW: CrCl(est): 82.1 mL/min (Creat:0.84 08/26/24) CRCL ACT: 81.14 mL/min CRCL ADJ: 82.1 mL/min (08/26/24) LFTs: WNL 08/26/24 Vitals: Weight (BMI): 189 lb [85.73 kg] (08/26/2024 13:47) BMI: 27.2 Height: 70 in [177.8 cm] (08/26/2024 13:47) Active Outpatient Medications (including Supplies): CARBIDOPA 25/LEVODOPA 100MG TAB TAKE 1 TABLET BY MOUTH ACTIVE FOUR TIMES A DAY EPINEPHRINE (EQV-EPI-PEN) 0.3MG/0.3ML INJECT DIRECTED ACTIVE INTRAMUSCULARLY ONE TIME RASAGILINE MESYLATE 1MG TAB TAKE ONE TABLET BY MOUTH AT ACTIVE BEDTIME Non-VA VALSARTAN TAB DIRECTED BY MOUTH ONCE DAILY ACTIVE Interacting Meds: none Apixaban: The patient was provided with the following education: --Purpose of Apixaban --Signs and symptoms of stroke and thrombosis and what to do should they occur --Medication Identification --Dosing recommendations -Apixaban may be taken with or without food -Apixaban may be crushed --Storage recommendations -Store medication in a dry area at room temperature --Recommendations for missed doses or overdosage --Importance of medication compliance and avoiding lapses in therapy to minimize the risk of stroke --Monitor for signs/symptoms of bleeding, including: -[place] or brown urine -Red or black tarry stools -Coughing up blood -Vomiting blood or vomit that looks like coffee grounds -Reoccurring nosebleeds -Unusual bleeding from the gums -Bleeding from a cut that does not stop -Headaches, dizziness or weakness --Contact this clinic or provider if patient experiences and serious or intolerable adverse effects --Review risks associated with falling --Which medications to avoid due to drug interactions --Importance of notifying all providers of any medication patient is taking or changes that may occur --What to do if patient wants to discontinue therapy --Contact this clinic or provider if scheduled for a procedure --Contact number for the [facility] provided Assessment/Plan: - continue apixaban 5mg twice daily - consult for medical alert bracelet Time Spent: 15 min Next Appt: 4 weeks please mail handout Next PCP Appt: 02/26/25 EDUCATION Provided with verbal instructions: Yes Provided with written instructions: Yes Barriers to learning: No Readiness to learn: Yes Specific dose directions reviewed: Yes Opportunity for questions/discussion: Yes Reports understanding of instructions: Yes Further learning needs: No PBM PharmD Pharmacotherapy Rem V12: Medication reconciliation (changes to active VA and non-VA medication lists to reconcile differences) No changes to medication lists made (medication review completed, no discrepancies identified) /oscar/ Javier Quezada PharmD Clinical Manager Program Signed: 08/27/2024 09:56 Receipt Acknowledged By: 08/27/2024 10:02 /oscar/ DAVID ALVARADO CPHT Clinical Furniture Lumber Production Worker JAVIER QUEZADA [facility] ([id number]) Aug 27, 2024 09:39 AM PHARMACY MEDICATION MGT CONSULT: LOCAL TITLE: CONSULT REPORT/ANTICOAGULATION CLINIC STANDARD TITLE: PHARMACY MEDICATION MGT CONSULT DATE OF NOTE: AUG 27, 2024@09:39 ENTRY DATE: AUG 27, 2024@09:39:13 AUTHOR: JAVIER QUEZADA EXP COSIGNER: URGENCY: STATUS: COMPLETED CONSULT REPORT/ANTICOAGULATION CLINIC Has ADDENDA Initial Note: Anticoagulation DOAC Agent Progress Note Reason for visit: Initial Education for Apixaban/Eliquis Indication: atrial fibrillation Start Date: around 08/13/24 Expected Duration: indefinite Referring Provider: PCP Bran Pope Patient Contact: Patient has given permission to leave anticoagulation message on answering machine or with person listed. Subjective: [place] states he was started on Eliquis 5mg BID about 2 weeks ago. He was diagnosed with AFib. takes his first dose in the morning upon waking at around 06:00-07:00 and takes the second dose 12 hours from then. He denies any missed doses. Denies any ADRs or s/sx bleeding. will drink EtOH occasionally. Denies use of OTC supplements/NSAIDs. He will use Tylenol if needs something for pain. Denies any upcoming procedures. Labs: CBC (last 90 days): CBC Collection DT Specimen Test Name Result Units Ref Range 08/26/2024 14:35 BLOOD WBC 7.30 K/cmm 4.50 - 11.00 08/26/2024 14:35 BLOOD RBC 4.63 M/cmm 4.23 - 5.66 08/26/2024 14:35 BLOOD HGB 14.4 g/dL 12.8 - 17 08/26/2024 14:35 BLOOD HCT 41.0 % 39.2 - 50.4 08/26/2024 14:35 BLOOD MCV 88.6 fl 82 - 99 08/26/2024 14:35 BLOOD MCHC 35.1 g/dL 30.8 - 35.1 08/26/2024 14:35 BLOOD PLT 153 K/cmm 140 - 360 08/26/2024 14:35 BLOOD RDW-CV 12.8 % 12.0 - 16.0 SrCr (last 6 weeks): CREATININE-EGFR 08/26/24 14:35 0.84 CRCL IBW: CrCl(est): 82.1 mL/min (Creat:0.84 08/26/24) CRCL ACT: 81.14 mL/min CRCL ADJ: 82.1 mL/min (08/26/24) LFTs: WNL 08/26/24 Vitals: Weight (BMI): 189 lb [85.73 kg] (08/26/2024 13:47) BMI: 27.2 Height: 70 in [177.8 cm] (08/26/2024 13:47) Active Outpatient Medications (including Supplies): CARBIDOPA 25/LEVODOPA 100MG TAB TAKE 1 TABLET BY MOUTH ACTIVE FOUR TIMES A DAY EPINEPHRINE (EQV-EPI-PEN) 0.3MG/0.3ML INJECT DIRECTED ACTIVE INTRAMUSCULARLY ONE TIME RASAGILINE MESYLATE 1MG TAB TAKE ONE TABLET BY MOUTH AT ACTIVE BEDTIME Non-VA VALSARTAN TAB DIRECTED BY MOUTH ONCE DAILY ACTIVE Interacting Meds: none Apixaban: The patient was provided with the following education: --Purpose of Apixaban --Signs and symptoms of stroke and thrombosis and what to do should they occur --Medication Identification --Dosing recommendations -Apixaban may be taken with or without food -Apixaban may be crushed --Storage recommendations -Store medication in a dry area at room temperature --Recommendations for missed doses or overdosage --Importance of medication compliance and avoiding lapses in therapy to minimize the risk of stroke --Monitor for signs/symptoms of bleeding, including: -[place] or brown urine -Red or black tarry stools -Coughing up blood -Vomiting blood or vomit that looks like coffee grounds -Reoccurring nosebleeds -Unusual bleeding from the gums -Bleeding from a cut that does not stop -Headaches, dizziness or weakness --Contact this clinic or provider if patient experiences and serious or intolerable adverse effects --Review risks associated with falling --Which medications to avoid due to drug interactions --Importance of notifying all providers of any medication patient is taking or changes that may occur --What to do if patient wants to discontinue therapy --Contact this clinic or provider if scheduled for a procedure --Contact number for the [facility] provided Assessment/Plan: - continue apixaban 5mg twice daily - consult for medical alert bracelet Time Spent: 15 min Next Appt: 4 weeks please mail handout Next PCP Appt: 02/26/25 EDUCATION Provided with verbal instructions: Yes Provided with written instructions: Yes Barriers to learning: No Readiness to learn: Yes Specific dose directions reviewed: Yes Opportunity for questions/discussion: Yes Reports understanding of instructions: Yes Further learning needs: No PBM PharmD Pharmacotherapy Rem V12: Medication reconciliation (changes to active VA and non-VA medication lists to reconcile differences) No changes to medication lists made (medication review completed, no discrepancies identified) /oscar/ Javier Quezada PharmD Clinical Manager Program Signed: 08/27/2024 09:56 Receipt Acknowledged By: 08/27/2024 10:02 /oscar/ DAVID ALVARADO CPHT Clinical Furniture Lumber Production Worker 08/27/2024 ADDENDUM STATUS: COMPLETED ACC Consult complete. Order for apixaban 5mg BID can be entered. Thank you! /rip Quezada PharmD Clinical Manager Program Signed: 08/27/2024 09:57 Receipt Acknowledged By: * AWAITING SIGNATURE * BRAN POPE ALBERT JAMES [facility] ([id number])
--- OUTSIDE RECORDS SUMMARY | 2024-09-18 00:58 | XMS_ITS | Encounter Summary ---
Author Name [facility] [place] Address [address] [place] [id number] Care Team Providers Care Supervisor Fruit Grading Name Role Phone ALISON CLARK Primary Care [...] Butler's Name Patient's Relationship to Policy [facility] (WNR) MEDICARE ADVANTAGE [facility] (WNR) Oct 09, 2020 [id number] ANTHONYUMM ChamberlainM PATIENT [facility] (WNR) MEDICARE ADVANTAGE [facility] (WNR) Oct 09, 2020 [id number] ANTHONY,WIL MANJEET PATIENT [facility] (WNR) MEDICARE ADVANTAGE [facility] (WNR) Apr 08, 2018 [id number] ANTHONY,WIL MANJEET PATIENT [facility] (WNR) MEDICARE ADVANTAGE [facility]CR (WNR) Apr 08, 2018 [id number] ANTHONY,UMM SIMONM PATIENT Selected Encounter This section includes the information on record at [place] for the Encounter. Date/Time Encounter Type Encounter Description Reason Pro vider Source Aug 26, 2024 12:00 AM Outpatient Encounter EVENT (HISTORICAL) IHE Encounter Template Text not used by [place] Plan of Treatment: Future Appointments (+ 6 months) and Future Tests (+/- 45 days) The Plan of Treatment section includes future care activities for the patient from all [place] treatmentfacilities. This section includes future appointments and [...] of theEncounter. The data comes from all [place] treatment facilities. Test Date/Time Test Type Test Details Facility Name Aug 26, 2024 02:17 PM Consult Order [facility] Cons Sheet Metal Technician's Choice [facility] Lab Results: +/- 30 days of the encounter This section includes the Chemistry and Hematology Lab Results on record with [place] for the patient. Radiology Reports and Pathology Reports are provided separately, in subsequent sections. Lab Results This section contains the Chemistry/Hematology Results that were resulted 30 days before or 30 daysafter the date of the Encounter. Date/Time Source Result Type Result - Unit Interpretation Reference Range Comment Aug 26, 2024 02:35 PM [facility] CBC Specimen Type: BLOOD No comment entered. Ordering Provider: VEGA CLARK Report Released Date/Time: Aug 15, 2024 03:53 PM Reporting Lab: [address] [address] Performing Lab: [address] [address] WBC 7.30 10*3/uL 4.50-11.00 RBC 4.63 10*6/uL 4.23-5.66 HGB 14.4 g/dL 12.8-17 HCT 41.0 39.2-50.4 MCV 88.6 fL 82-99 MCHC 35.1 g/dL 30.8-35.1 PLT 153 10*3/uL 140-360 RDW-CV 12.8 12.0-16.0 MCH 31.1 pg 26.2-32.6 Aug 26, 2024 02:35 PM [facility] BASIC METABOLIC PANEL (non-fasting) Specimen Type: SERUM No comment entered. Ordering Provider: VEGA CLARK Report Released Date/Time: Aug 15, 2024 03:53 PM Reporting Lab: [facility] [address] [facility] [address] Performing Lab: [address] [address] UREA NITROGEN 22 mg/dL 7-25 GLUCOSE 91 mg/dL 65-100 SODIUM 137 mmol/L 135-145 POTASSIUM 4.0 mmol/L 3.5-5.0 CHLORIDE 104 mmol/L 100-110 CO2 22 meq/L 20-30 CREATININE, Serum 0.84 mg/dL 0.50-1.40 eGFR(CKD-EPI 2020) >90 mL/min >60 Aug 26, 2024 02:35 PM [facility] LIPID PANEL, NON FASTING Specimen Type: SERUM No comment entered. Ordering Provider: VEGA CLARK Report Released Date/Time: Aug 15, 2024 03:53 PM Reporting Lab: [address] [address] Performing Lab: [address] [address] CHOLESTEROL 209 mg/dL H TRIGLYCERIDE 301 mg/dL H 0-150 LDL calculated Reflex to dLDL mg/dL 0-129 CHOL/HDL 4.5 HDL CHOLESTEROL 46 mg/dL 40-60 LDL DIRECT 124 mg/dL H Aug 26, 2024 02:35 PM [facility] LIVER FUNCTION Specimen Type: SERUM No comment entered. Ordering Provider: VEGA CLARK Report Released Date/Time: Aug 15, 2024 03:53 PM Reporting Lab: [address] [address] Performing Lab: [address] [address] PROTEIN,TOTAL 7.6 g/dL 6.0-8.3 ALBUMIN 4.1 g/dL 3.5-5.0 ALKALINE PHOSPHATASE 54 U/L 40-150 AST 25 U/L 5-34 ALT 6 U/L BILIRUBIN, TOTAL 0.8 mg/dL 0.2-1.2 Aug 26, 2024 02:35 PM [facility] PT & INR (COU[facility]ADIN) Specimen Type: PLASMA No comment entered. Ordering Provider: VEGA CLARK Report Released Date/Time: Aug 26, 2024 02:15 PM Reporting Lab: [facility] [address] [facility] [address] Performing Lab: [facility] [address] [facility] [address] INR 1.5 PROTIME 16.1 s H 10.0-13.1 Vital Signs: All taken on the encounter date This section contains inpatient and outpatient Vital Signs collected on the date of the Encounter. Date/Time Temperature Pulse Blood Pressure Respiratory Rate SP02 Pain Height Weight Body Mass Index Source Aug 26, 2024 02:24 PM 134/78 [facility] Aug 26, 2024 01:47 PM 97.5 81 140/87 20 97 5 70 189 27 [facility] Social History: Smoking Status (Most current) and Tobacco Use (All prior to encounter date) This section includes the most current, and the historical, smoking and tobacco- related health factors from the [place] facility where the Encounter took place. Current Smoking Status This section includes the most current smoking, or tobacco-related health factor, from the [place] facility where the Encounter took place. Date/Time Current Smoking Status Comment Keven ity Aug 26, 2024 02:00 PM VA-TOBACCO FORMER USER [facility] Tobacco Use History This section includes a history of the smoking, or tobacco-related health factors, that were collected on or before the date of the Encounter. The data comes from the [place] facility where the Encounter took place. Date/Time Smoking Status/Tobacco Use Comment F acility Aug 26, 2024 02:00 PM [facility]CO QUIT [facility]RS [facility] Aug 14, 2023 01:00 PM VA-TOBACCO FORMER USER [facility] Aug 14, 2023 01:00 PM VA-TOBACCO QUIT 15 YRS OR MORE [place] [facility] [place] [facility] Aug 22, 2022 03:00 PM VA-TOBACCO FORMER USER [facility] [place] [facility] Aug 22, 2022 03:00 PM VA-TOBACCO QUIT 15 YRS OR MORE [facility] [place] [facility] Mar 20, 2020 03:08 PM VA-TOBACCO FORMER USER [facility] [place] [facility] Mar 20, 2020 03:08 PM VA-TOBACCO QUIT 15 YRS OR MORE OR [facility] [place] [facility] Nov 16, 2018 10:37 AM VA-TOBACCO FORMER USER [place] [facility] [place] [facility] Nov 16, 2018 10:37 AM VA-TOBACCO QUIT 15 YRS OR MORE [place] [facility] [place] [facility]
--- OUTSIDE RECORDS SUMMARY | 2024-09-18 00:58 | XMS_ITS ---
Author Name [facility] [place] Address [address] [place] [address] Care Team Providers Care Wool Fleece Sorter Name Role Phone ALISON CLARK Primary Care [...] Butler's Name Patient's Relationship to Policy Butler [facility] (WNR) MEDICARE ADVANTAGE [facility] (WNR) Oct 09, 2020 [id number] ANTHONYUMM ChamberlainM PATIENT [facility] (WNR) MEDICARE ADVANTAGE [facility] (WNR) Oct 09, 2020 [id number] ANTHONY,WIL MANJEET PATIENT [facility] (WNR) MEDICARE ADVANTAGE [facility] (WNR) Apr 08, 2018 [id number] ANTHONYUMM MANJEET PATIENT [facility] (WNR) MEDICARE ADVANTAGE [facility] (WNR) Apr 08, 2018 [id number] UMM CRUZ MANJEET PATIENT Selected Encounter This section includes the information on record at [place] for the Encounter. Date/Time Encounter Type Encounter Description Reason Pro vider Source Mar 26, 2024 12:00 PM Outpatient Encounter COMMUNITY CARE CONSULT IHE Encounter Template Text not used by [place] Plan of Treatment: Future Appointments (+ 6 months) and Future Tests (+/- 45 days) The Plan of Treatment section includes future care activities for the patient from all [place] [facility] This section includes future appointments and future orders which are active, pending or scheduled. Future Appointments This section includes appointments that were scheduled to occur 6 months from the date of the Encounter, up to a maximum of 20 appointments. The data comes from all [facility]. Appointment Date/Time Appointment Type Appointme nt Facility Name Aug 09, 2024 01:30 PM [facility] Aug 26, 2024 02:00 PM [facility] Active, Pending, and Scheduled Orders This section includes a listing of several types of active, pending, and scheduled orders, including clinic medications orders, diagnostic test orders, procedure orders and consult orders; where the start date of the order is 45 days before the date of the Encounter or 45 days after the date of theEncounter. The data comes from all [facility]. Test Date/Time Test Type Test Details Facility Name May 06, 2024 12:00 AM Laboratory - Chemi stry Order OCCULT BLOOD FIT X1 SCREEN (MFP ONLY) STOOL FECES SP [facility] Social History: Smoking Status (Most current) and Tobacco Use (All prior to encounter date) This section includes the most current, and the historical, smoking and tobacco- related health factors from the [place] facility where the Encounter took place. Current Smoking Status This section includes the most current smoking, or tobacco-related health factor, from the [place] facility where the Encounter took place. Date/Time Current Smoking Status Comment Facil ity Aug 14, 2023 01:00 PM VA-TOBACCO FORMER USER [facility] Tobacco Use History This section includes a history of the smoking, or tobacco-related health factors, that were collected on or before the date of the Encounter. The data comes from the [place] facility where the Encounter took place. Date/Time Smoking Status/Tobacco Use Comment F acility Aug 14, 2023 01:00 PM [place]-TOBACCO QUIT 15 YRS OR MORE [facility] Aug 22, 2022 03:00 PM [facility] Aug 22, 2022 03:00 PM VA-TOBACCO QUIT 15 YRS OR MORE [facility] [place] [facility] Mar 20, 2020 03:08 PM VA-TOBACCO FORMER USER [facility] [place] [facility] Mar 20, 2020 03:08 PM VA-TOBACCO QUIT 15 YRS OR MORE [facility] [place] [facility] Nov 16, 2018 10:37 AM VA-TOBACCO FORMER USER [place] [facility] [place] [facility] Nov 16, 2018 10:37 AM VA-TOBACCO QUIT 15 YRS OR MORE [facility] Encounter Notes: All associated encounter notes This section contains the clinical notes associated to the Encounter. Date/Time Encounter Note(s) Provider Source Mar 26, 2024 12:00 PM NONVA CONSULT: LOCAL TITLE: COMMUNITY CARE-CONSULT RESULT NOTE STANDARD TITLE: NONVA CONSULT DATE OF NOTE: MAR 26, 2024@12:00 ENTRY DATE: APR 17, 2024@14:11:54 AUTHOR: KAREEM HAY EXP COSIGNER: URGENCY: STATUS: COMPLETED VistA Imaging - Scanned Document SCANNED DOCUMENT SIGNATURE NOT REQUIRED Electronically Filed: 04/17/2024 by: KAREEM CEDILLO [place] [facility]
--- OUTSIDE RECORDS SUMMARY | 2024-09-18 00:58 | XMS_ITS ---
Author Name [facility] [place] [facility] [place] Address [address] [place] [id number] Care Team Providers Care Finish Filer Name Role Phone BRAN POPE Primary Care [...] Butler's Name Patient's Relationship to Policy Butler [facility] (WNR) MEDICARE ADVANTAGE [facility] (WNR) Oct 09, 2020 [id number] ANTHONYUMM Chamberlain PATIENT [facility] (WNR) MEDICARE ADVANTAGE [facility] (WNR) Oct 09, 2020 [id number] ANTHONY,WIL MANJEET PATIENT [facility] (WNR) MEDICARE ADVANTAGE [facility] (WNR) Apr 08, 2018 [id number] UMM CRUZ MANJEET PATIENT [facility] (WNR) MEDICARE ADVANTAGE MCR ([facility]) Apr 08, 2018 [id number] ANTHONYUMM BURROUGHS PATIENT Selected Encounter This section includes the information on record at [place] for the Encounter. Date/Time Encounter Type Encounter Description Reason Provider Source Aug 26, 2024 02:00 PM OFFICE O/P EST MOD 30 MIN PRIMARY CARE/MEDICINE ICD-10-CM I48.91 Unspecified atrial fibrillation VEGA POPE IHE Encounter Template Text not used by [place] Assessments - Encounter Diagnoses This section includes the primary and secondary diagnoses documented for the Encounter. Date/Time Primary/Secondary Diagnosis Diagnosis Name Provider Source Aug 27, 2024 12:13 PM PRIMARY Unspecified atrial fibrillation VEGA POPE [facility] Aug 27, 2024 12:13 PM SECONDARY Essential (primary) hypertension VEGA POPE [facility] Aug 27, 2024 12:13 PM SECONDARY care home (current) use of anticoagulants AMBER,VEGA Pearce [facility] Plan of Treatment: Future Appointments (+ 6 months) and Future Tests (+/- 45 days) The Plan of Treatment section includes future care activities for the patient from all [place] treatmentfacilities. This section includes future appointments and [...] of theEncounter. The data comes from all [place] treatment facilities. Test Date/Time Test Type Test Details Facility Name Aug 26, 2024 02:17 PM Consult Order COMMUNITY CARE-NEUROLOGY Cons Building Maintenance Supervisor's Choice [facility] Lab Results: +/- 30 days of the encounter This section includes the Chemistry and Hematology Lab Results on record with [place] for the patient. Radiology Reports and Pathology Reports are provided separately, in subsequent sections. Lab Results This section contains the Chemistry/Hematology Results that were resulted 30 days before or 30 daysafter the date of the Encounter. Date/Time Source Result Type Result - Unit Interpretation Reference Range Comment Aug 26, 2024 02:35 PM [facility] CBC Specimen Type: BLOOD No comment entered. Ordering Provider: VEGA POPE Report Released Date/Time: Aug 15, 2024 03:53 PM Reporting Lab: [address] [id number] Performing Lab: [address] [id number] WBC 7.30 10*3/uL 4.50-11.00 RBC 4.63 10*6/uL 4.23-5.66 HGB 14.4 g/dL 12.8-17 HCT 41.0 39.2-50.4 MCV 88.6 fL 82-99 MCHC 35.1 g/dL 30.8-35.1 PLT 153 10*3/uL 140-360 RDW-CV 12.8 12.0-16.0 MCH 31.1 pg 26.2-32.6 Aug 26, 2024 02:35 PM [facility] BASIC METABOLIC PANEL (non-fasting) Specimen Type: SERUM No comment entered. Ordering Provider: VEGA POPE Report Released Date/Time: Aug 15, 2024 03:53 PM Reporting Lab: [address] [phone] Performing Lab: [address] [address] UREA NITROGEN 22 mg/dL 7-25 GLUCOSE 91 mg/dL 65-100 SODIUM 137 mmol/L 135-145 POTASSIUM 4.0 mmol/L 3.5-5.0 CHLORIDE 104 mmol/L 100-110 CO2 22 meq/L 20-30 CREATININE, Serum 0.84 mg/dL 0.50-1.40 eGFR(CKD-EPI 2020) >90 mL/min >60 Aug 26, 2024 02:35 PM [facility] LIPID PANEL, NON FASTING Specimen Type: SERUM No comment entered. Ordering Provider: VEGA POPE Report Released Date/Time: Aug 15, 2024 03:53 PM Reporting Lab: [address] [address] Performing Lab: [address] [address] CHOLESTEROL 209 mg/dL H TRIGLYCERIDE 301 mg/dL H 0-150 LDL calculated Reflex to dLDL mg/dL 0-129 CHOL/HDL 4.5 HDL CHOLESTEROL 46 mg/dL 40-60 LDL DIRECT 124 mg/dL H Aug 26, 2024 02:35 PM [facility] LIVER FUNCTION Specimen Type: SERUM No comment entered. Ordering Provider: VEGA POPE Report Released Date/Time: Aug 15, 2024 03:53 PM Reporting Lab: [address] [address] Performing Lab: [address] [address] PROTEIN,TOTAL 7.6 g/dL 6.0-8.3 ALBUMIN 4.1 g/dL 3.5-5.0 ALKALINE PHOSPHATASE 54 U/L 40-150 AST 25 U/L 5-34 ALT 6 U/L BILIRUBIN, TOTAL 0.8 mg/dL 0.2-1.2 Aug 26, 2024 02:35 PM [facility] PT & INR (COUMADIN) Specimen Type: PLASMA No comment entered. Ordering Provider: VEGA POPE Report Released Date/Time: Aug 26, 2024 02:15 PM Reporting Lab: [address] [address] Performing Lab: [address] [address] INR 1.5 PROTIME 16.1 s H 10.0-13.1 Vital Signs: All taken on the encounter date This section contains inpatient and outpatient Vital Signs collected on the date of the Encounter. Date/Time Temperature Pulse Blood Pressure Respiratory Rate SP02 Pain Height Weight Body Mass Index Source Aug 26, 2024 02:24 PM 134/78 [facility] Aug 26, 2024 01:47 PM 97.5 81 140/87 20 97 5 70 189 27 [facility] Social History: Smoking Status (Most current) and Tobacco Use (All prior to encounter date) This section includes the most current, and the historical, smoking and tobacco- related health factors from the [place] facility where the Encounter took place. Current Smoking Status This section includes the most current smoking, or tobacco-related health factor, from the [place] facility where the Encounter took place. Date/Time Current Smoking Status Comment Keven ity Aug 26, 2024 02:00 PM VA-TOBACCO FORMER USER [place] [facility] [place] [facility] Tobacco Use History This section includes a history of the smoking, or tobacco-related health factors, that were collected on or before the date of the Encounter. The data comes from the [place] facility where the Encounter took place. Date/Time Smoking Status/Tobacco Use Comment F acility Aug 26, 2024 02:00 PM VA-TOBACCO QUIT 15 YRS OR MORE [facility] [place] [facility] Aug 14, 2023 01:00 PM VA-TOBACCO FORMER USER [place] [facility] [place] [facility] Aug 14, 2023 01:00 PM VA-TOBACCO QUIT 15 YRS OR MORE [facility] [place] [facility] Aug 22, 2022 03:00 PM VA-TOBACCO FORMER USER [place] [facility] [place] [facility] Aug 22, 2022 03:00 PM VA-TOBACCO QUIT 15 YRS OR MORE [facility] [place] [facility] Mar 20, 2020 03:08 PM VA-TOBACCO FORMER USER [place] [facility] [place] [facility] Mar 20, 2020 03:08 PM VA-TOBACCO QUIT 15 YRS OR MORE [facility] [place] [facility] Nov 16, 2018 10:37 AM VA-TOBACCO FORMER USER [place] [facility] [place] [facility] Nov 16, 2018 10:37 AM VA-TOBACCO QUIT 15 YRS OR MORE [place] [facility] [place] [facility] Encounter Notes: All associated encounter notes This section contains the clinical notes associated to the Encounter. Date/Time Encounter Note(s) Provider Source Aug 26, 2024 02:17 PM PRIMARY CARE NURSE PRACTITIONER OUTPATIENT NOTE: LOCAL TITLE: NURSE PRACTITIONER OUTPATIENT NOTE STANDARD TITLE: PRIMARY CARE NURSE PRACTITIONER OUTPATIENT NOTE DATE OF NOTE: AUG 26, 2024@14:17 ENTRY DATE: AUG 26, 2024@14:17:31 AUTHOR: BRAN POPE COSIGNER: URGENCY: STATUS: COMPLETED Chief complaint: Patient is a 74 year old . HPI: Pleasant male here to follow up. Feeling well. Since our visit he was diagnosed with afib and now on apixaban. He is following with [facility]. Allergies: BEE VENOM, TETANUS TOXOID The following VA and Non-VA meds were reconciled with patient. The patient was educated on the use of the medications including indication and side effects. Active and Recently Outpatient Medications (excluding Supplies): Active Outpatient Medications Status 1) CARBIDOPA 25/LEVODOPA 100MG TAB TAKE 1 TABLET BY ACTIVE MOUTH FOUR TIMES A DAY 2) RASAGILINE MESYLATE 1MG TAB TAKE ONE TABLET BY MOUTH ACTIVE AT BEDTIME Pending Outpatient Medications Status 1) EPINEPHRINE (EQV-EPI-PEN) 0.3MG/0.3ML INJECT PENDING DIRECTED INTRAMUSCULARLY ONE TIME Active Non-VA Medications Status 1) Non-VA VALSARTAN TAB DIRECTED BY MOUTH ONCE DAILY ACTIVE 4 Total Medications Review of Systems: Constitutional: (-)for Fevers, chills, weakness, nights sweats On examination: 97.5 F [36.4 C] (08/26/2024 13:47)140/87 (08/26/2024 13:47)81 (08/26/2024 13:47)20 (08/26/2024 13:47)5 (08/26/2024 13:47)BMI: 27.2189 lb [85.73 kg] (08/26/2024 13:47) is alert and oriented X3 Neck: supple without masses, trachea midline, ln not palpable, no thyromegaly Cardiovasc: 2plus carotids without bruits, no JVD Heart Reguler rate and rhythm NL S1S2 no S3 or murmur Respiration: Normal respiratory effort, lungs clear ABD: Benign normal active bowel sounds no HSM no rebound or referred pain EXT: no clubbing, edema, or cyanosis All diagnostics from past month were reviewed with patient. Assessment/plan: Active problems - Computerized Problem List is the source for the followin. Atrial fibrillation - consult to pharmacy so he can get apixaban from us 2. Asbestosis - remains asx 3. Colonic polyp - follows every three years with Dr. Huerta, due next year 4. Parkinson disease - [facility], Dr Hart 5. HTN - Hypertension - [id number]/78 Review of medial record = 5mins Time spent with Patient including shared decision making = 20 mins Post visit documentation = 5mins Total time = 30 mins Follow up visit in 6 mos. Avg Risk Colorectal Cancer Screen: AVERAGE RISK colorectal cancer screening is due based on information available to this clinical reminder Patient has arranged or is choosing to arrange this care independent of and without assistance from this [place]. HTN Assess for Elevated BP>=140/90: Repeat blood pressure: 134/78 The patient's blood pressure is usually adequately controlled. No medication changes are indicated at this time. Medication Reconciliation: Outpatient: Has the patient been taking medications as documented in the EMLR? YES: The patient has been taking medications as documented in the EMLR. Essential Medication List for Review used to complete this medication reconciliation. INCLUDED IN THIS LIST: Alphabetical list of active outpatient prescriptions dispensed from this [place] (local) and dispensed from another [place] or DoD facility (remote) as well as inpatient orders (local, pending and active), local clinic medications, locally documented non-VA medications, and local prescriptions that have or been discontinued in the past 90 days. - All changes in medications, including all non-VA/Herbal/OTC medications were entered into CPRS. - If there were any medications the patient should no longer take, they were discontinued. - The patient/caregiver was instructed to update this list, discard old lists, and take this list to the next appointment, whether with a VA or non-VA provider. /oscar/ Bran Pope DNP, GARBAGE TRUCK HELPER-BC, CNL Primary Care Nurse Practitioner Signed: 08/26/2024 14:25 BRAN POPE [facility] Aug 26, 2024 02:03 PM PREVENTIVE MEDICINE NURSING NOTE: LOCAL TITLE: CLINICAL REMINDERS/NURSING STANDARD TITLE: PREVENTIVE MEDICINE NURSING NOTE DATE OF NOTE: AUG 26, 2024@14:03 ENTRY DATE: AUG 26, 2024@14:03:21 AUTHOR: RAMON ALMENDAREZIGNER: URGENCY: STATUS: COMPLETED Influenza Immunization: The patient has received the seasonal influenza vaccine for the current season at another location. Documented: INFLUENZA, UNSPECIFIED FORMULATION Historical Date Administered: Jun 18, 2024 Outside Location: Outside Healthcare Provider Information Source: FROM PATIENT'S RECALL Comment: per statement from vet COVID-19 Immunization: Vaccine given previously - no written/electronic documentation available Comment: per statement from vet The patient was instructed to bring a copy of their COVID-19 vaccine information to their next appointment so that this can be accurately recorded in their [place] medical record. /oscar/ Ramon Almendarez, Health Advertising Operations Manager COP EXAMINER,PRIMARY CARE Signed: 08/26/2024 14:05 RAMON ALMENDAREZ [facility] Aug 26, 2024 01:50 PM PREVENTIVE MEDICINE NURSING NOTE: LOCAL TITLE: CLINICAL REMINDERS/NURSING STANDARD TITLE: PREVENTIVE MEDICINE NURSING NOTE DATE OF NOTE: AUG 26, 2024@13:50 ENTRY DATE: AUG 26, 2024@13:50:56 AUTHOR: RAMON ALMENDAREZIGNER: URGENCY: STATUS: COMPLETED Advance Directive Screen MH AD: Patient does not have an Advance Directive completed and is requesting more information. A consult was sent to Social Work Services at this visit so that an appointment can be made with the patient to review the advance directive. The patient received education about Advance Directives and written notification of his/her rights. Suicide Screen: C-SSRS Screening [place]-Suicide Severity Rating Scale (C-SSRS Screener) 1. Over the past month, have you wished you were or wished you could go to sleep and not wake up? No 2. Over the past month, have you had any actual thoughts of killing yourself? No 3. Over the past month, have you been thinking about how you might do this? Response not required due to responses to other questions. 4. Over the past month, have you had these thoughts and had some intention of acting on them? Response not required due to responses to other questions. 5. Over the past month, have you started to work out or worked out the details of how to kill yourself? Response not required due to responses to other questions. 6. If yes, at any time in the past month did you intend to carry out this plan? Response not required due to responses to other questions. 7. In your lifetime, have you ever done anything, started to do anything, or prepared to do anything to end your life (for example, collected pills, obtained a gun, gave away valuables, went to the roof but didn't jump)? No 8. If YES, was this within the past 3 months? Response not required due to responses to other questions. Depression Screening: Perform PHQ-2 A PHQ-2 screen was performed. The score was 0 which is a negative screen for depression. Over the past two weeks, how often have you been bothered by the following problems? 1. Little interest or pleasure in doing things Not at all 2. Feeling down, depressed, or hopeless Not at all Tobacco Use Screening: The patient is a former tobacco user. The patient quit fifteen or more years ago. Alcohol Use Screen (AUDIT-C): Alcohol Screen: SCREEN FOR ALCOHOL (AUDIT-C) An alcohol screening test (AUDIT-C) was negative (score=1). 1. How often did you have a drink containing alcohol in the past year? Consider a drink to be a 12 ounce can or bottle of regular beer, 8 ounces of malt liquor, a 5 ounce glass of table wine, or a 1.5 ounce shot of liquor (like scotch, gin, or vodka). Monthly or less 2. How many drinks containing alcohol did you have on a typical day when you were drinking in the past year? One or two drinks 3. How often did you have six or more drinks on one occasion in the past year? Never RHS Screen: RHS Screen Session Format: Face to Face Environmental Check Upon inquiry, the individual reports that the environment is safe to proceed. Informed Consent to Screen and Document The individual consents to proceed with screening. The individual consents to documentation of responses. PRIMARY SCREEN: In the past 12 months, how often did a current or former intimate partner (e.g., boyfriend, girlfriend, , , sexual partner): 1. Scream or curse at you Never 2. Insult or talk down to you Never 3. Threaten you with harm Never 4. Physically hurt you Never 5. Force or pressure you to have sexual contact against your will, or when you were unable to say no Never ?? The HITS tool (items 1-4 above) is [place] copyright protected by Davonte Brown MD, and the user has full rights to use it throughout the [place] system. PRIMARY SCREEN RESULT: The Primary Screen is NEGATIVE. The individual answered never to all forms of IPV above (i.e., answered never to all 5 items) The individual accepts education and/or resources: No EDUCATION: Other: not interested at this time /oscar/ Ramon Almendarez Health Advertising Operations Manager COP EXAMINER,PRIMARY CARE Signed: 08/26/2024 13:53 RAMON ALMENDAREZ [facility]
--- OUTSIDE RECORDS SUMMARY | 2024-09-18 00:58 | XMS_ITS ---
Author Name [facility] [place] Organization [facility] [place] Address [address] [place] [address] Care Team Providers Care President Ceo & Founder Name Role Phone ALISON CLARK Primary Care [...] Butler's Name Patient's Relationship to Policy Butler [facility] (WNR) MEDICARE ADVANTAGE MCR (WNR) Oct 09, 2020 [id number] ANTHONYUMM ChamberlainM PATIENT [facility] (WNR) MEDICARE ADVANTAGE [facility] (WNR) Oct 09, 2020 [id number] ANTHONY,WIL MANJEET PATIENT [facility] (WNR) MEDICARE ADVANTAGE [facility] (WNR) Apr 08, 2018 [id number] 06 ANTHONY,WIL MANJEET PATIENT [facility] (WNR) MEDICARE ADVANTAGE [facility] (WNR) Apr 08, 2018 [id number] 06 ANTHONYUMM SIMONM PATIENT Selected Encounter This section includes the information on record at [place] for the Encounter. Date/Time Encounter Type Encounter Description Reason Pro vider Source Jun 12, 2024 09:38 AM Outpatient Encounter TELEPHONE PRIMARY CARE IHE Encounter Template Text not used by [place] Plan of Treatment: Future Appointments (+ 6 months) and Future Tests (+/- 45 days) The Plan of Treatment section includes future care activities for the patient from all [place] [facility]. This section includes future appointments and future orders which are active, pending or scheduled. Future Appointments This section includes appointments that were scheduled to occur 6 months from the date of the Encounter, up to a maximum of 20 appointments. The data comes from all [facility]. Appointment Date/Time Appointment Type Appointme nt Facility Name Aug 09, 2024 01:30 PM AMBULATORY - MEDICINE [facility] Aug 26, 2024 02:00 PM AMBULATORY - MEDICINE [facility] Active, Pending, and Scheduled Orders This section includes a listing of several types of active, pending, and scheduled orders, including clinic medications orders, diagnostic test orders, procedure orders and consult orders; where the start date of the order is 45 days before the date of the Encounter or 45 days after the date of theEncounter. The data comes from all [facility]. Test Date/Time Test Type Test Details Facility Name May 06, 2024 12:00 AM Laboratory - Chemi stry Order OCCULT BLOOD FIT X1 SCREEN (MFP ONLY) STOOL FECES SP [facility] Social History: Smoking Status (Most current) and Tobacco Use (All prior to encounter date) This section includes the most current, and the historical, smoking and tobacco- related health factors from the [place] facility where the Encounter took place. Current Smoking Status This section includes the most current smoking, or tobacco-related health factor, from the [place] facility where the Encounter took place. Date/Time Current Smoking Status Comment Facil ity Aug 14, 2023 01:00 PM [place]-TOBACCO QUIT 15 YRS OR MORE [facility] Tobacco Use History This section includes a history of the smoking, or tobacco-related health factors, that were collected on or before the date of the Encounter. The data comes from the [place] facility where the Encounter took place. Date/Time Smoking Status/Tobacco Use Comment F acility Aug 14, 2023 01:00 PM SD-TOBACCO QUIT 15 YRS OR MORE [facility] Aug 22, 2022 03:00 PM VA-TOBACCO FORMER USER [facility] [place] [facility] Aug 22, 2022 03:00 PM VA-TOBACCO QUIT 15 YRS OR MORE [facility] [place] [facility] Mar 20, 2020 03:08 PM VA-TOBACCO FORMER USER [facility] [place] [facility] Mar 20, 2020 03:08 PM VA-TOBACCO QUIT 15 YRS OR MORE [place] [facility] [place] [facility] Nov 16, 2018 10:37 AM VA-TOBACCO FORMER USER [place] [facility] [place] [facility] Nov 16, 2018 10:37 AM VA-TOBACCO QUIT 15 YRS OR MORE [facility] [place] [facility] Encounter Notes: All associated encounter notes This section contains the clinical notes associated to the Encounter. Date/Time Encounter Note(s) Provider Source Jun 12, 2024 09:38 AM PRIMARY CARE TELEP ZAKIYA ENCOUNTER NOTE: LOCAL TITLE: TELEPHONE NOTE/PRIMARY CARE STANDARD TITLE: PRIMARY CARE TELEPHONE ENCOUNTER NOTE DATE OF NOTE: JUN 12, 2024@09:38 ENTRY DATE: JUN 12, 2024@09:38:54 AUTHOR: BERTA HER EXP COSIGNER: URGENCY: STATUS: COMPLETED TELEPHONE CALL Called at PATIENT PHONE - PHONE NUMBER [[phone]] - Regarding clarification: FIT test-Need date and name of outside provider. Voice message was left requesting a callback /oscar/ BERTA HER REGISTERED NURSE Signed: 06/12/2024 09:41 [facility]A HER [place] [facility]
--- OUTSIDE RECORDS SUMMARY | 2024-09-18 00:59 | XMS_ITS ---
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 Name Role Phone ALISON CLARK Primary Care [...] Name Patient's Relationship to Policy Butler [facility] (WNR) MEDICARE ADVANTAGE [facility] (WNR) Oct 09, 2020 [id number] 06 ANTHONYUMM ChamberlainM PATIENT [facility] MCR (WNR) MEDICARE ADVANTAGE [facility] (WNR) Oct 09, 2020 [id number] 06 ANTHONY,WIL MANJEET PATIENT [facility] (WNR) MEDICARE ADVANTAGE [facility] (WNR) Apr 08, 2018 [id number] 06 ANTHONY,WIL MANJEET PATIENT [facility] (WNR) MEDICARE ADVANTAGE [facility] (WNR) Apr 08, 2018 [id number] 06 ANTHONYUMM SIMONM PATIENT Selected Encounter This section includes the information on record at [place] for the Encounter. Date/Time Encounter Type Encounter Description Reason Pro vider Source Aug 09, 2024 12:00 AM Outpatient Encounter COMMUNITY CARE CONSULT IHE Encounter Template Text not used by [facility] Plan of Treatment: Future Appointments (+ 6 months) and Future Tests (+/- 45 days) The Plan of Treatment section includes future care activities for the patient from all [place] [facility]. This section includes future appointments and future orders which are active, pending or scheduled. Future Appointments This section includes appointments that were scheduled to occur 6 months from the date of the Encounter, up to a maximum of 20 appointments. The data comes from all [place] treatment facilities. Appointment Date/Time Appointment Type Appointme nt Facility Name Aug 26, 2024 02:00 PM AMBULATORY - MEDICINE [facility] Active, Pending, and Scheduled Orders This section includes a listing of several types of active, pending, and scheduled orders, including clinic medications orders, diagnostic test orders, procedure orders and consult orders; where the start date of the order is 45 days before the date of the Encounter or 45 days after the date of theEncounter. The data comes from all [place] treatment facilities. Test Date/Time Test Type Test Details Facility Name Aug 26, 2024 02:17 PM Consult Order COMMUNITY CARE-NEUROLOGY Cons Security Patrol Officer's Choice [facility] Lab Results: +/- 30 days of the encounter This section includes the Chemistry and Hematology Lab Results on record with [place] for the patient. Radiology Reports and Pathology Reports are provided separately, in subsequent sections. Lab Results This section contains the Chemistry/Hematology Results that were resulted 30 days before or 30 daysafter the date of the Encounter. Date/Time Source Result Type Result - Unit Interpretation Reference Range Comment Aug 26, 2024 02:35 PM [facility] CBC Specimen Type: BLOOD No comment entered. Ordering Provider: VEGA CLARK Report Released Date/Time: Aug 15, 2024 03:53 PM Reporting Lab: [address] [address] Performing Lab: [address] [address] WBC 7.30 10*3/uL 4.50-11.00 RBC 4.63 10*6/uL 4.23-5.66 HGB 14.4 g/dL 12.8-17 HCT 41.0 39.2-50.4 MCV 88.6 fL 82-99 MCHC 35.1 g/dL 30.8-35.1 PLT 153 10*3/uL 140-360 RDW-CV 12.8 12.0-16.0 MCH 31.1 pg 26.2-32.6 Aug 26, 2024 02:35 PM [facility] BASIC METABOLIC PANEL (non-fasting) Specimen Type: SERUM No comment entered. Ordering Provider: VEGA CLARK Report Released Date/Time: Aug 15, 2024 03:53 PM Reporting Lab: [address] [address] Performing Lab: [address] [address] UREA NITROGEN 22 mg/dL 7-25 GLUCOSE 91 mg/dL 65-100 SODIUM 137 mmol/L 135-145 POTASSIUM 4.0 mmol/L 3.5-5.0 CHLORIDE 104 mmol/L 100-110 CO2 22 meq/L 20-30 CREATININE, Serum 0.84 mg/dL 0.50-1.40 eGFR(CKD-EPI 2020) >90 mL/min >60 Aug 26, 2024 02:35 PM [facility] LIPID PANEL, NON FASTING Specimen Type: SERUM No comment entered. Ordering Provider: VEGA CLARK Report Released Date/Time: Aug 15, 2024 03:53 PM Reporting Lab: [address] [address] Performing Lab: [address] [address] CHOLESTEROL 209 mg/dL H TRIGLYCERIDE 301 mg/dL H 0-150 LDL calculated Reflex to dLDL mg/dL 0-129 CHOL/HDL 4.5 HDL CHOLESTEROL 46 mg/dL 40-60 LDL DIRECT 124 mg/dL H Aug 26, 2024 02:35 PM [facility] LIVER FUNCTION Specimen Type: SERUM No comment entered. Ordering Provider: VEGA CLARK Report Released Date/Time: Aug 15, 2024 03:53 PM Reporting Lab: [address] [address] Performing Lab: [facility] [address] [facility] [address] PROTEIN,TOTAL 7.6 g/dL 6.0-8.3 ALBUMIN 4.1 g/dL 3.5-5.0 ALKALINE PHOSPHATASE 54 U/L 40-150 AST 25 U/L 5-34 ALT 6 U/L BILIRUBIN, TOTAL 0.8 mg/dL 0.2-1.2 Aug 26, 2024 02:35 PM [facility] PT & INR (COUMADIN) Specimen Type: PLASMA No comment entered. Ordering Provider: VEGA CLARK Report Released Date/Time: Aug 26, 2024 02:15 PM Reporting Lab: [facility] [address] [facility] [address] Performing Lab: [facility] [address] [address] INR 1.5 PROTIME 16.1 s H 10.0-13.1 Social History: Smoking Status (Most current) and Tobacco Use (All prior to encounter date) This section includes the most current, and the historical, smoking and tobacco- related health factors from the [place] facility where the Encounter took place. Current Smoking Status This section includes the most current smoking, or tobacco-related health factor, from the [place] facility where the Encounter took place. Date/Time Current Smoking Status Comment Facil ity Aug 14, 2023 01:00 PM VA-TOBACCO FORMER USER [facility] Tobacco Use History This section includes a history of the smoking, or tobacco-related health factors, that were collected on or before the date of the Encounter. The data comes from the [place] facility where the Encounter took place. Date/Time Smoking Status/Tobacco Use Comment F acility Aug 14, 2023 01:00 PM VA-TOBACCO QUIT 15 YRS OR MORE [place] [facility] [place] [facility] Aug 22, 2022 03:00 PM VA-TOBACCO FORMER USER [place] [facility] [place] [facility] Aug 22, 2022 03:00 PM VA-TOBACCO QUIT 15 YRS OR MORE [place] [facility] [place] [facility] Mar 20, 2020 03:08 PM VA-TOBACCO FORMER USER [place] [facility] [place] [facility] Mar 20, 2020 03:08 PM VA-TOBACCO QUIT 15 YRS OR MORE [facility] [place] [facility] Nov 16, 2018 10:37 AM VA-TOBACCO FORMER USER [facility] [place] [facility] Nov 16, 2018 10:37 AM VA-TOBACCO QUIT 15 YRS OR MORE [facility] Encounter Notes: All associated encounter notes This section contains the clinical notes associated to the Encounter. Date/Time Encounter Note(s) Provider Source Aug 09, 2024 12:00 AM NONVA CONSULT: LOCAL TITLE: COMMUNITY CARE-CONSULT RESULT NOTE STANDARD TITLE: NONVA CONSULT DATE OF NOTE: AUG 09, 2024 ENTRY DATE: AUG 31, 2024@13:48:59 AUTHOR: BERNADETTE VALENCIA EXP COSIGNER: URGENCY: STATUS: COMPLETED VistA Imaging - Scanned Document SCANNED DOCUMENT SIGNATURE NOT REQUIRED Electronically Filed: 08/31/2024 by: BERNADETTE BURNS [facility]
== END 2024-09-12 10:07 | disposition home or self-care (01) ==
PROVIDERS: PCP Internal Medicine; Visit Provider Internal Medicine Cardiovascular Disease
DX: I48.92 Unspecified atrial flutter (principal); I77.89 Other specified disorders of arteries and arterioles
CPT/HCPCS: 93010; 99214; G2211

== ENCOUNTER → 2024-09-12 09:34 | Outpatient (BNVA) | payer MEDICARE, SELFPAY | PROVIDERS: PCP Internal Medicine; Visit Provider Internal Medicine Cardiovascular Disease | DX: I48.92 Unspecified atrial flutter (principal); I77.89 Other specified disorders of arteries and arterioles | CPT/HCPCS: 93005; 99212 ==

== ENCOUNTER 2024-11-27 11:23 | Outpatient (AMB) | payer MEDICARE, SELFPAY ==
[2024-11-27 11:26] VITALS: BP 126/82; PULSE 66; O2SAT 99; BMI 27.7
--- NOTE | 2024-11-27 11:26 | MHC.OFFVIS ---
Vital Signs 11/27/24 11:26 Height 5 ft 10 in Weight 193 lb 4 oz BMI 27.7 BP 126/82 Blood Pressure Location Lt brachial Position Sitting Pulse 66 Pulse Source Pulse Oximeter Pulse Oximetry (%) 99 Oxygen Delivery Method Room Air Intake Visit Reasons: Follow Up Intake Note: Patient present follow up Parkinson's Allergies bee venom protein (honey bee) Allergy (Severe, Verified 11/27/24 11:29) Anaphylaxis tetanus Allergy (Severe, Uncoded 09/12/24 09:49) Nausea and Vomiting HPI Comments Details: 74 -yr-old male presents for f/u visit for Parkinson's. Pt is accompanied by his . Pt reports he was recently diagnosed w/ a-fib and is s/p cardioversion and he is now on Eliquis. Pt states he does not feel any a-fib s/s. [facility] He also recently had a left inner lower leg basal cell cancer excision by [facility]. Pt has completed the PD research study through the [place] in [place]. Pt's current PD medication regimen: CD-LD 25-100mg 1 tab qid. Rasagiline 1mg qd. ADL's: Independent, a bit slower. Slow with eating and cutting food. Swallowing: No issues Voice: Can be softer. Doing a program with the [facility]. Cough: None Drooling: Stable- daytime and nighttime Orthostatic lightheadedness: Has not noticed. Does drink water and Gatorade. Constipation: None Urinary: No issues. Freezing: Rare some brief frozen feet. Stiffness: Not noticing Tremor: Stable Falls: No interval falls. He is stilling try to practice situational awareness . Hallucinations: None Memory: Good Mood: Depressed, frustrated at times with having to think about everything he is doing. Sleep: States he read the recommended book on improving sleep quality, and sense is sleeping better. May talk in his sleep and have dreams- not acting out dreams. Does snore. Sleeps with his mouth open. Does need daytime naps. Tends to be an early riser. Has never had a sleep study. Exercise: Active at home. Typically goes to the gym regularly- but unable right now d/t BCC excision.. Other- The bilateral whole wrist aching pain has resolved. Brief episodes of tingling sensation in random parts of the body- mostly head or extremities- seems to have resolved once his a-fib was dx'd/tx'd. [facility] Medical History (Updated 11/27/24 @ 11:53 by BRIGETTE Ruvalcaba) Afib Atrial flutter Parkinson's disease Pleural plaque due to asbestos exposure Basal cell carcinoma HTN (hypertension) Surgical History S/P skin biopsy History of colon surgery Hx of knee surgery Hx of appendectomy Family History Father Oral cancer Heart attack Mother Stroke Daughter HTN (hypertension) Hypothyroid Sister No problems noted. Sister No problems noted. Sister HTN (hypertension) Social History Household Members: Spouse Are you a primary caretaker to a significant other at home: No Do you presently have visiting nurse or other home services: No Alcohol intake: current Alcohol intake frequency: holidays/special occasions only Patient Tobacco Use Status: Former Tobacco user Physical Exam Vital Signs: Last Vital Signs Pulse 66 11/27/24 11:26 BP 126/82 11/27/24 11:26 Pulse Ox 99 11/27/24 11:26 Oxygen Delivery Method Room Air 11/27/24 11:26 BMI result Body Mass Index 27.7 Const General: cooperative and no acute distress Resp Effort & Inspection: normal respiratory effort and able to speak in complete sentences Neuro Other: General: A&O x's 3 Expression:? Mild decreased expression and blink, left facial droop- chronic. Voice:? Mild hypophonia Tremor:? Intermittent mild RUE rest tremor Tone:? Bilateral upper extremity tone, mild Dyskinesia:? None FFM:? Mild bradykinesia Foot taps:? Mild bradykinesia Gait:? Stands easily today, good posture, decreased left arm swing, no right arm swing, short steps, steady gait Psych:? Pleasant affect Assessment & Plan Assessment & Plan (1) Parkinson's disease without dyskinesia: Code(s): G20.A1 - Parkinson's disease without dyskinesia, without mention of fluctuations Category: Medical (2) Tremor: Code(s): R25.1 - Tremor, unspecified Category: Medical (3) Bradykinesia: Code(s): R25.8 - Other abnormal involuntary movements Category: Medical (4) Snoring: Code(s): R06.83 - Snoring Category: Medical (5) Hypersomnia, unspecified: Code(s): G47.10 - Hypersomnia, unspecified Category: Medical Plan Due to recent new AFib diagnosis, patient advised to undergo in-lab PSG to assess for sleep apnea. Continue Carbidopa-Levodopa 25-100mg QID at 9am, 12pm, 3pm, and 6pm. Continue Rasagaline 1mg qd. When able, resume regular physical activity. Continue to f/u w/ dermatology as scheduled. Future considerations- increasing CD-LD or trying alternate, OT for self feeding. F/u in 6 months or sooner prn. Orders: Orders RT PSG in-lab sleep study Today G20.A1 - Parkinson's disease without dyskinesia, without mention of fluctuations, G47.10 - Hypersomnia, unspecified, I48.92 - Unspecified atrial flutter, R06.83 - Snoring Coding Level of Care Code Est Pt Level 4 (36273) Diagnoses Parkinson's disease without dyskinesia G20.A1 Tremor R25.1 Bradykinesia R25.8 Snoring R06.83 Hypersomnia, unspecified G47.10
--- OUTSIDE RECORDS SUMMARY | 2024-11-27 12:03 | XMS_ITS | Continuity of Care Document ---
Author Name [facility] Organization [facility] Care Team Providers Care Transaction Advisory Services Manager Name Role Phone [facility] Unavailable Unavailable Problems Combined list of problems from Department of Defense and Veterans Affairs facilities. It does not include entries that were removed or entered in error. Problem Status Onset Date Problem Type Date of Resolution Comments Source Parkinson disease Active 7 Condition [facility] [place] [facility] Asbestosis Active Condition [facility] [place] [facility] Atrial fibrillation Active Condition [facility] [place] [facility] Colonic polyp Active Condition [facility] [place] [facility] Diverticulitis of colon Active Condition [facility] [place] [facility] Exposure to potentially hazardous substance Active Condition Nov 16, 2023 Entered By: PERLA PRUITT Comment: original RENETTA Screen completed 08/22/22 [facility] [place] [facility] HTN - Hypertension ([facility] [id number]) Active Condition [facility] [place] [facility] Long-term current use of anticoagulant Active Condition [facility] (631GE) Diagnosis: ICD-10-CM Z51.81 Encounter for therapeutic drug level monitoring Active Diagnosis [facility] (631GE) Diagnosis: ICD-10-CM 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 [facility] (631GE) Diagnosis: ICD-10-CM I48.91 Unspecified atrial fibrillation Active Diagnosis [facility] [place] [facility] Diagnosis: ICD-10-CM I10 Essential (primary) hypertension Active Diagnosis [facility] [place] [facility] Diagnosis: ICD-10-CM Z23 Encounter for immunization Active Diagnosis [facility] WSIsaac [facility] [place] [facility] Medications Combined list of outpatient medications from [...] ON OF BLOOD CLOTS ORAL ACTIVE 08/28/2025 [id number] ALISON CLARK 2023 180 [facility] CARBIDOPA 25MG/LEVODO PA 100MG TAB TAKE 1 TABLET BY MOUTH FOUR TIMES A DAY ORAL ACTIVE 11/07/2025 [id number] 5 MARY ANNE JONES 2024 360 [facility] [place] CARBIDOPA 25MG/LEVODO PA 100MG TAB TAKE 1 TABLET BY MOUTH FOUR TIMES A DAY ORAL DISCONT INUED 10/19/2024 [id number] 4 MARY ANNE JONES 2023 360 [facility] EPINEPHRINE (EQV-EPI-PE N) 0.3MG/0.3ML INJECTOR INJECT DIRECTED INTRAMUS CULARLY ONE TIME INTRAM USCULA R ACTIVE 08/27/2025 [id number] ALISON CLARK 2023 2 [facility] RASAGILINE MESYLATE 1MG TAB TAKE ONE TABLET BY MOUTH AT BEDTIME ORAL ACTIVE 11/07/2025 [id number] 5 MARY ANNE JONES 2024 90 [facility] [place] RASAGILINE MESYLATE 1MG TAB TAKE ONE TABLET BY MOUTH AT BEDTIME ORAL DISCONT INUED 10/19/2024 [id number] 4 MARY ANNE JONES 2023 90 [facility] [place] [facility] VALSARTAN PA-F TAB TAKE DIRECTED BY MOUTH ONCE DAILY ORAL ACTIVE ALISON CLARK 2021 [facility] Allergies, Adverse Reactions, Alerts Combined list of allergies from Department of Defense and Veterans Affairs facilities. It does not include entries that were removed or entered in error. Substance Category Reaction Severity Reaction type Status Date Reported Comments Source BEE [facility]OM Propensity to adverse reaction (finding) active [facility] T[facility] TOXOID Propensity to adverse reactions to drug (finding) active 9 [facility] Immunizations Combined list of available immunizations from the Department of Defense and Veterans Affairs facilities. Immunization Series Date Given Administered By Site Reaction Lot Number CVX Code Drug Temple Marker Status Comments Source INFLUENZA, UNSPECIFIED FORMULATION 2023 88 complet ed per statement from vet [facility] COVID-19 (MODERNA), MRNA, LNP-S, PF, 50 MCG/0.5 ML (AGES 12+ YEARS) 2022 CHANNING FERMIN KAMI LEFT DELTO ID [id number] 312 complet ed [facility] INFLUENZA, HIGH-DOSE, QUADRIVALENT 2022 CHANNING FERMIN KAMI RIGHT DELTO ID [id number] 197 complet ed [facility] COVID-19 (PFIZER), MRNA, LNP-S, BIVALENT BOOSTER, PF, 30 MCG/0.3 ML DOSE 4 2021 300 complet ed vets card Lot#: [id number] Mfr: [employer], [facility] INFLUENZA, UNSPECIFIED FORMULATION 2021 88 complet ed [facility] COVID-19 (PFIZER), MRNA, LNP-S, PF, 30 MCG/0.3 ML DOSE 2021 208 complet ed vets card Lot#: [id number] Mfr: [employer] [facility] COVID-19 (PFIZER), MRNA, LNP-S, PF, 30 MCG/0.3 ML DOSE 3 2020 208 complet ed vets card Lot#: [id number] Mfr: [employer] [facility] COVID-19 (PFIZER), MRNA, LNP-S, PF, 30 MCG/0.3 ML DOSE 2 2020 208 complet ed vets card Lot#: [id number] Mfr: [employer], [employer] [facility] COVID-19 (PFIZER), MRNA, LNP-S, PF, 30 MCG/0.3 ML DOSE 1 2020 208 complet ed Lot#: [id number] Mfr: [employer] [facility] INFLUENZA, UNSPECIFIED FORMULATION 2019 88 complet ed [facility] INFLUENZA, TRIVALENT, ADJUVANTED 2018 168 complet ed Site: Left Deltoid [facility] ZOSTER RECOMBINANT 2 2018 187 complet ed [facility] PNEUMOCOCCAL POLYSACCHARID E PPV23 2018 33 complet ed [facility] ZOSTER RECOMBINANT 1 2018 187 complet ed [facility] INFLUENZA, SEASONAL, INJECTABLE 2017 141 complet ed [facility] Results Combined list of recent chemistry, hematology and other laboratory results from Department of Defense and Veterans Affairs, ranging from 15 months to all on record, depending upon the facility. Order Name Results Value Reference Range Date Interpretation Specimen Comments Source CBC LEUKOCYTES [#/VOLUME] IN BLOOD BY AUTOMATED COUNT 7.30 10*3/uL 4.50 - 11.00 08/26 Specimen Type: BLOOD No comment entered. Ordering Provider: SYDNEE CLARK Report Released Date/Time: Aug 15, 2024 03:53 PM Reporting Lab: [facility] [place] [facility] [address] [facility] [address] Performing Lab: [facility] [place] [facility] [address] [facility] [address] [facility] [place] [facility] CBC ERYTHROCYT ES [#/VOLUME] IN BLOOD BY AUTOMATED COUNT 4.63 10*6/uL 4.23 - 5.66 08/26 Specimen Type: BLOOD No comment entered. Ordering Provider: SYDNEE CLARK Report Released Date/Time: Aug 15, 2024 03:53 PM Reporting Lab: [facility] [place] [facility] [address] [facility] [address] Performing Lab: [facility] [place] [facility] [address] [facility] [address] [facility] [place] [facility] CBC HEMOGLOBIN [MASS/VOLU ME] IN BLOOD 14.4 g/dL 12.8 - 17 08/26 Specimen Type: BLOOD No comment entered. Ordering Provider: SYDNEE CLARK Report Released Date/Time: Aug 15, 2024 03:53 PM Reporting Lab: [facility] [place] [facility] [address] [facility] [address] Performing Lab: [facility] [place] [facility] [address] [facility] [address] [facility] [place] [facility] CBC HEMATOCRIT [VOLUME FRACTION] OF BLOOD BY AUTOMATED COUNT 41.0 39.2 - 50.4 08/26 Specimen Type: BLOOD No comment entered. Ordering Provider: SYDNEE CLARK Report Released Date/Time: Aug 15, 2024 03:53 PM Reporting Lab: [facility] [place] [facility] [address] [facility] [address] Performing Lab: [facility] [place] [facility] [address] [facility] [address] [facility] [place] [facility] CBC MCV [ENTITIC VOLUME] BY AUTOMATED COUNT 88.6 fL 82 - 99 08/26 Specimen Type: BLOOD No comment entered. Ordering Provider: SYDNEE CLARK Report Released Date/Time: Aug 15, 2024 03:53 PM Reporting Lab: [facility] [place] [facility] [address] [facility] [address] Performing Lab: [facility] [place] [facility] [address] [facility] [address] [facility] [place] [facility] CBC MCHC [MASS/VOLU ME] BY AUTOMATED COUNT 35.1 g/dL 30.8 - 35.1 08/26 Specimen Type: BLOOD No comment entered. Ordering Provider: SYDNEE CLARK Report Released Date/Time: Aug 15, 2024 03:53 PM Reporting Lab: [facility] [place] [facility] [address] [facility] [address] Performing Lab: [facility] [place] [facility] [address] [facility] [address] [facility] [place] [facility] CBC PLATELETS [#/VOLUME] IN BLOOD BY AUTOMATED COUNT 153 10*3/uL 140 - 360 08/26 Specimen Type: BLOOD No comment entered. Ordering Provider: SYDNEE CLARK Report Released Date/Time: Aug 15, 2024 03:53 PM Reporting Lab: [facility] [place] [facility] [address] [facility] [address] Performing Lab: [facility] [place] [facility] [address] [facility] [address] [facility] [place] [facility] CBC ERYTHROCYT E DISTRIBUTI ON WIDTH [RATIO] BY AUTOMATED COUNT 12.8 12.0 - 16.0 08/26 Specimen Type: BLOOD No comment entered. Ordering Provider: SYDNEE CLARK Report Released Date/Time: Aug 15, 2024 03:53 PM Reporting Lab: [facility] [place] [facility] [address] [facility] [address] Performing Lab: [facility] [place] [facility] [address] [facility] [address] [facility] [place] [facility] CBC MCH [ENTITIC MASS] BY AUTOMATED COUNT 31.1 pg 26.2 - 32.6 08/26 Specimen Type: BLOOD No comment entered. Ordering Provider: SYDNEE CLARK Report Released Date/Time: Aug 15, 2024 03:53 PM Reporting Lab: [facility] [place] [facility] [address] [facility] [address] Performing Lab: [facility] [place] [facility] [address] [facility] [address] [facility] [place] [facility] BASIC METABOLIC PANEL (non-fast ing) UREA NITROGEN [MASS/VOLU ME] IN SERUM OR PLASMA 22 mg/dL 7 - 25 08/26 Specimen Type: SERUM No comment entered. Ordering Provider: SYDNEE CLARK Report Released Date/Time: Aug 15, 2024 03:53 PM Reporting Lab: [facility] [place] [facility] [address] [facility] [address] Performing Lab: [facility] [place] [facility] [address] [facility] [address] [facility] [place] [facility] BASIC METABOLIC PANEL (non-fast ing) GLUCOSE [MASS/VOLU ME] IN SERUM OR PLASMA 91 mg/dL 65 - 100 08/26 Specimen Type: SERUM No comment entered. Ordering Provider: SYDNEE CLARK Report Released Date/Time: Aug 15, 2024 03:53 PM Reporting Lab: [facility] [place] [facility] [address] [facility] [address] Performing Lab: [facility] [place] [address] [address] [facility] [place] [facility] BASIC METABOLIC PANEL (non-fast ing) SODIUM [MOLES/VOL UME] IN SERUM OR PLASMA 137 mmol/L 135 - 145 08/26 Specimen Type: SERUM No comment entered. Ordering Provider: SYDNEE CLARK Report Released Date/Time: Aug 15, 2024 03:53 PM Reporting Lab: [facility] [place] [facility] [address] [facility] [address] Performing Lab: [facility] [place] [address] [address] [facility] [place] [facility] BASIC METABOLIC PANEL (non-fast ing) POTASSIUM [MOLES/VOL UME] IN SERUM OR PLASMA 4.0 mmol/L 3.5 - 5.0 08/26 Specimen Type: SERUM No comment entered. Ordering Provider: SYDNEE CLARK Report Released Date/Time: Aug 15, 2024 03:53 PM Reporting Lab: [facility] [place] [address] [address] Performing Lab: [facility] [place] [address] [address] [facility] [place] [facility] BASIC METABOLIC PANEL (non-fast ing) CHLORIDE [MOLES/VOL UME] IN SERUM OR PLASMA 104 mmol/L 100 - 110 08/26 Specimen Type: SERUM No comment entered. Ordering Provider: SYDNEE CLARK Report Released Date/Time: Aug 15, 2024 03:53 PM Reporting Lab: [address] [address] Performing Lab: [address] [address] [facility] BASIC METABOLIC PANEL (non-fast ing) CARBON DIOXIDE, TOTAL [MOLES/VOL UME] IN SERUM OR PLASMA 22 meq/L 20 - 30 08/26 Specimen Type: SERUM No comment entered. Ordering Provider: SYDNEE CLARK Report Released Date/Time: Aug 15, 2024 03:53 PM Reporting Lab: [address] [address] Performing Lab: [address] [address] [facility] BASIC METABOLIC PANEL (non-fast ing) CREATININE [MASS/VOLU ME] IN SERUM OR PLASMA 0.84 mg/dL 0.50 - 1.40 08/26 Specimen Type: SERUM No comment entered. Ordering Provider: SYDNEE CLARK Report Released Date/Time: Aug 15, 2024 03:53 PM Reporting Lab: [address] [address] Performing Lab: [address] [address] [facility] BASIC METABOLIC PANEL (non-fast ing) GLOMERULAR FILTRATION RATE/1.73 SQ M.PREDICTE D [VOLUME RATE/AREA] IN SERUM, PLASMA OR BLOOD BY CREATININE -BASED FORMULA (CKD-EPI 2020) >90mL/m in 60 08/26 Specimen Type: SERUM No comment entered. Ordering Provider: SYDNEE CLARK Report Released Date/Time: Aug 15, 2024 03:53 PM Reporting Lab: [facility] [place] [facility] [address] [place] [address] Performing Lab: [facility] [place] [facility] [address] [facility] [address] [facility] [place] [facility] LIPID PANEL, NON FASTING CHOLESTERO L [MASS/VOLU ME] IN SERUM OR PLASMA 209 mg/dL 08/26 H Specimen Type: SERUM No comment entered. Ordering Provider: SYDNEE CLARK Report Released Date/Time: Aug 15, 2024 03:53 PM Reporting Lab: [facility] [place] [facility] [address] [facility] [address] Performing Lab: [facility] [place] [facility] [address] [facility] [address] [facility] [place] [facility] LIPID PANEL, NON FASTING TRIGLYCERI DE [MASS/VOLU ME] IN SERUM OR PLASMA 301 mg/dL 0 - 150 08/26 H Specimen Type: SERUM No comment entered. Ordering Provider: SYDNEE CLARK Report Released Date/Time: Aug 15, 2024 03:53 PM Reporting Lab: [facility] [place] [facility] [address] [facility] [address] Performing Lab: [facility] [place] [facility] [address] [facility] [address] [facility] [place] [facility] LIPID PANEL, NON FASTING CHOLESTERO L IN LDL [MASS/VOLU ME] IN SERUM OR PLASMA BY CALCULATIO N Reflex to dLDLmg/ dL 0 - 129 08/26 Specimen Type: SERUM No comment entered. Ordering Provider: SYDNEE CLARK Report Released Date/Time: Aug 15, 2024 03:53 PM Reporting Lab: [facility] [place] [facility] [address] [facility] [address] Performing Lab: [facility] [place] [facility] [address] [facility] [address] [facility] [place] [facility] LIPID PANEL, NON FASTING CHOLESTERO L.TOTAL/CH OLESTEROL IN HDL [MASS RATIO] IN SERUM OR PLASMA 4.5 08/26 Specimen Type: SERUM No comment entered. Ordering Provider: SYDNEE CLARK Report Released Date/Time: Aug 15, 2024 03:53 PM Reporting Lab: [facility] [place] [facility] [address] [facility] [address] Performing Lab: [facility] [place] [facility] [address] [facility] [address] [facility] [place] [facility] LIPID PANEL, NON FASTING CHOLESTERO L IN HDL [MASS/VOLU ME] IN SERUM OR PLASMA 46 mg/dL 40 - 60 08/26 Specimen Type: SERUM No comment entered. Ordering Provider: SYDNEE CLARK Report Released Date/Time: Aug 15, 2024 03:53 PM Reporting Lab: [facility] [place] [address] [address] Performing Lab: [facility] [place] [address] [address] [facility] LIPID PANEL, NON FASTING CHOLESTERO L IN LDL [MASS/VOLU ME] IN SERUM OR PLASMA BY DIRECT ASSAY 124 mg/dL 08/26 H Specimen Type: SERUM No comment entered. Ordering Provider: SYDNEE CLARK Report Released Date/Time: Aug 15, 2024 03:53 PM Reporting Lab: [facility] [place] [address] [address] Performing Lab: [facility] [place] [address] [address] [facility] [place] [facility] LIVER FUNCTION PROTEIN [MASS/VOLU ME] IN SERUM OR PLASMA 7.6 g/dL 6.0 - 8.3 08/26 Specimen Type: SERUM No comment entered. Ordering Provider: SYDNEE CLARK Report Released Date/Time: Aug 15, 2024 03:53 PM Reporting Lab: [facility] [place] [address] [address] Performing Lab: [facility] [place] [address] [place] [address] [facility] [place] [facility] LIVER FUNCTION ALBUMIN [MASS/VOLU ME] IN SERUM OR PLASMA 4.1 g/dL 3.5 - 5.0 08/26 Specimen Type: SERUM No comment entered. Ordering Provider: SYDNEE CLARK Report Released Date/Time: Aug 15, 2024 03:53 PM Reporting Lab: [facility] [place] [address] [address] Performing Lab: [facility] [place] [address] [address] [facility] [place] [facility] LIVER FUNCTION ALKALINE PHOSPHATAS E [ENZYMATIC ACTIVITY/V OLUME] IN SERUM OR PLASMA 54 U/L 40 - 150 08/26 Specimen Type: SERUM No comment entered. Ordering Provider: SYDNEE CLARK Report Released Date/Time: Aug 15, 2024 03:53 PM Reporting Lab: [facility] [place] [address] [address] Performing Lab: [place] [facility] [place] [address] [address] [facility] [place] [facility] LIVER FUNCTION ASPARTATE AMINOTRANS FERASE [ENZYMATIC ACTIVITY/V OLUME] IN SERUM OR PLASMA 25 U/L 5 - 34 08/26 Specimen Type: SERUM No comment entered. Ordering Provider: SYDNEE CLARK Report Released Date/Time: Aug 15, 2024 03:53 PM Reporting Lab: [facility] [place] [address] [address] Performing Lab: [facility] [place] [address] [address] [facility] [place] [facility] LIVER FUNCTION ALANINE AMINOTRANS FERASE [ENZYMATIC ACTIVITY/V OLUME] IN SERUM OR PLASMA 6 U/L 08/26 Specimen Type: SERUM No comment entered. Ordering Provider: SYDNEE CLARK Report Released Date/Time: Aug 15, 2024 03:53 PM Reporting Lab: [facility] [place] [facility] [address] [facility] [address] Performing Lab: [facility] [place] [facility] [address] [facility] [address] [facility] [place] [facility] LIVER FUNCTION BILIRUBIN. TOTAL [MASS/VOLU ME] IN SERUM OR PLASMA 0.8 mg/dL 0.2 - 1.2 08/26 Specimen Type: SERUM No comment entered. Ordering Provider: SYDNEE CLARK Report Released Date/Time: Aug 15, 2024 03:53 PM Reporting Lab: [facility] [place] [facility] [address] [facility] [address] Performing Lab: [place] [facility] [place] [address] [address] [facility] [place] [facility] PT & INR (COUMADIN ) INR IN PLATELET POOR PLASMA BY COAGULATIO N ASSAY 1.5 08/26 Specimen Type: PLASMA No comment entered. Ordering Provider: SYDNEE CLARK Report Released Date/Time: Aug 26, 2024 02:15 PM Reporting Lab: [facility] [place] [address] [address] Performing Lab: [place] [facility] [place] [address] [address] [facility] [place] [facility] PT & INR (COUMADIN ) PROTHROMBI N TIME (PT) 16.1 s 10.0 - 13.1 08/26 H Specimen Type: PLASMA No comment entered. Ordering Provider: SYDNEE CLARK Report Released Date/Time: Aug 26, 2024 02:15 PM Reporting Lab: [facility] [place] [address] [address] Performing Lab: [place] [facility] [place] [address] [address] [facility] [place] [facility] CBC LEUKOCYTES [#/VOLUME] IN BLOOD BY AUTOMATED COUNT 5.84 10*3/uL 4.50 - 11.00 02/07 Specimen Type: BLOOD No comment entered. Ordering Provider: SYDNEE CLARK Report Released Date/Time: Feb 02, 2024 10:46 AM Reporting Lab: [facility] [place] [facility] [address] [facility] [address] Performing Lab: [facility] [place] [facility] [address] [facility] [address] [facility] [place] [facility] CBC ERYTHROCYT ES [#/VOLUME] IN BLOOD BY AUTOMATED COUNT 4.62 10*6/uL 4.23 - 5.66 02/07 Specimen Type: BLOOD No comment entered. Ordering Provider: SYDNEE CLARK Report Released Date/Time: Feb 02, 2024 10:46 AM Reporting Lab: [facility] [place] [facility] [address] [facility] [address] Performing Lab: [facility] [place] [facility] [address] [facility] [address] [facility] [place] [facility] CBC HEMOGLOBIN [MASS/VOLU ME] IN BLOOD 14.3 g/dL 12.8 - 17 02/07 Specimen Type: BLOOD No comment entered. Ordering Provider: SYDNEE CLARK Report Released Date/Time: Feb 02, 2024 10:46 AM Reporting Lab: [facility] [place] [facility] [address] [facility] [phone] Performing Lab: [facility] [place] [facility] [address] [facility] [address] [facility] [place] [facility] CBC HEMATOCRIT [VOLUME FRACTION] OF BLOOD BY AUTOMATED COUNT 40.9 39.2 - 50.4 02/07 Specimen Type: BLOOD No comment entered. Ordering Provider: SYDNEE CLARK Report Released Date/Time: Feb 02, 2024 10:46 AM Reporting Lab: [facility] [place] [facility] [address] [facility] [address] Performing Lab: [facility] [place] [facility] [address] [facility] [address] [facility] [place] [facility] CBC MCV [ENTITIC VOLUME] BY AUTOMATED COUNT 88.5 fL 82 - 99 02/07 Specimen Type: BLOOD No comment entered. Ordering Provider: SYDNEE CLARK Report Released Date/Time: Feb 02, 2024 10:46 AM Reporting Lab: [facility] [place] [facility] [address] [facility] [address] Performing Lab: [facility] [place] [facility] [address] [facility] [address] [facility] [place] [facility] CBC MCHC [MASS/VOLU ME] BY AUTOMATED COUNT 35.0 g/dL 30.8 - 35.1 02/07 Specimen Type: BLOOD No comment entered. Ordering Provider: SYDNEE CLARK Report Released Date/Time: Feb 02, 2024 10:46 AM Reporting Lab: [facility] [place] [facility] [address] [facility] [facility] [facility] [address] Performing Lab: [facility] [place] [address] [address] [facility] CBC PLATELETS [#/VOLUME] IN BLOOD BY AUTOMATED COUNT 162 10*3/uL 140 - 360 02/07 Specimen Type: BLOOD No comment entered. Ordering Provider: SYDNEE CLARK Report Released Date/Time: Feb 02, 2024 10:46 AM Reporting Lab: [facility] [place] [facility] [address] [facility] [address] Performing Lab: [facility] [place] [address] [address] [facility] [place] [facility] CBC ERYTHROCYT E DISTRIBUTI ON WIDTH [RATIO] BY AUTOMATED COUNT 12.4 12.0 - 16.0 02/07 Specimen Type: BLOOD No comment entered. Ordering Provider: SYDNEE CLARK Report Released Date/Time: Feb 02, 2024 10:46 AM Reporting Lab: [facility] [place] [facility] [address] [facility] [address] Performing Lab: [facility] [place] [facility] [address] [facility] [address] [facility] [place] [facility] CBC MCH [ENTITIC MASS] BY AUTOMATED COUNT 31.0 pg 26.2 - 32.6 02/07 Specimen Type: BLOOD No comment entered. Ordering Provider: SYDNEE CLARK Report Released Date/Time: Feb 02, 2024 10:46 AM Reporting Lab: [facility]ITALRWASHINGTON [facility]ITALTRN [facility]ITALUSE[facility]CON[facility] [address] [facility] [address] Performing Lab: [facility]PITALRWASHINGTON [facility]OSPITALTRN [facility] MARK[facility]OSPITALUSE[address] [address] [facility]PITALRMONROE COUNTY HOSPITALN [facility] MARK'S HOSPITALUSE [facility] BASIC METABOLIC PANEL (non-fast ing) UREA NITROGEN [MASS/VOLU ME] IN SERUM OR PLASMA 23 mg/dL 7 - 25 02/07 Specimen Type: SERUM No comment entered. Ordering Provider: SYDNEE CLARK Report Released Date/Time: Feb 02, 2024 10:46 AM Reporting Lab: [facility]OSPITALRMONROE COUNTY HOSPITALN [address] [address] Performing Lab: [facility]PITALRWASHINGTON COUNTY HOSPITALTRN [facility] MARK[facility]OSPITALUSE[address] [address] [facility]PITALRMONROE COUNTY HOSPITALN [facility] BASIC METABOLIC PANEL (non-fast ing) GLUCOSE [MASS/VOLU ME] IN SERUM OR PLASMA 112 mg/dL 65 - 100 02/07 H Specimen Type: SERUM No comment entered. Ordering Provider: SYDNEE CLARK Report Released Date/Time: Feb 02, 2024 10:46 AM Reporting Lab: [facility]PITALRWASHINGTON COUNTY HOSPITALTRN [facility] MARK[facility]S HOSPITALUSE[address] [address] Performing Lab: [facility] HOSPITALRL TRN [address] MARK[facility]OS[facility]ITALUSE[address] [address] [facility]ITALRMONROE COUNTY HOSPITALN [facility] BASIC METABOLIC PANEL (non-fast ing) SODIUM [MOLES/VOL UME] IN SERUM OR PLASMA 137 mmol/L 135 - 145 02/07 Specimen Type: SERUM No comment entered. Ordering Provider: SYDNEE CLARK Report Released Date/Time: Feb 02, 2024 10:46 AM Reporting Lab: [facility]PITALRWASHINGTON COUNTY HOSPITALTRN [facility]OSPITALUSE[address] [address] Performing Lab: [facility] HOSPITALRL WSTRN [facility]CHUSEPECONIC [facility] [address] [facility] [address] [facility] BASIC METABOLIC PANEL (non-fast ing) POTASSIUM [MOLES/VOL UME] IN SERUM OR PLASMA 3.9 mmol/L 3.5 - 5.0 02/07 Specimen Type: SERUM No comment entered. Ordering Provider: SYDNEE CLARK Report Released Date/Time: Feb 02, 2024 10:46 AM Reporting Lab: [facility] HOSPITALRMONROE COUNTY HOSPITALN [facility] [address] [facility] [address] Performing Lab: [facility] [address] [address] [facility] BASIC METABOLIC PANEL (non-fast ing) CHLORIDE [MOLES/VOL UME] IN SERUM OR PLASMA 100 mmol/L 100 - 110 02/07 Specimen Type: SERUM No comment entered. Ordering Provider: SYDNEE CLARK Report Released Date/Time: Feb 02, 2024 10:46 AM Reporting Lab: [facility] [address] [address] Performing Lab: [facility] [address] [facility] [address] [facility] BASIC METABOLIC PANEL (non-fast ing) CARBON DIOXIDE, TOTAL [MOLES/VOL UME] IN SERUM OR PLASMA 27 meq/L 20 - 30 02/07 Specimen Type: SERUM No comment entered. Ordering Provider: SYDNEE CLARK Report Released Date/Time: Feb 02, 2024 10:46 AM Reporting Lab: [facility]ERN [facility] HOSPITALUSEPECONIC [facility] [address] [facility] [address] Performing Lab: [facility]ERN [facility] HOSPITALUSEPECONIC [facility] [address] [facility] [address] [facility] BASIC METABOLIC PANEL (non-fast ing) CREATININE [MASS/VOLU ME] IN SERUM OR PLASMA 1.01 mg/dL 0.50 - 1.40 02/07 Specimen Type: SERUM No comment entered. Ordering Provider: SYDNEE CLARK Report Released Date/Time: Feb 02, 2024 10:46 AM Reporting Lab: [facility] [place] [facility] [address] [facility] [address] Performing Lab: [facility] [place] [facility] [address] [facility] [address] [facility] [facility] BASIC METABOLIC PANEL (non-fast ing) GLOMERULAR FILTRATION RATE/1.73 SQ M.PREDICTE D [VOLUME RATE/AREA] IN SERUM, PLASMA OR BLOOD BY CREATININE -BASED FORMULA (CKD-EPI 2020) 79 mL/min 60 02/07 Specimen Type: SERUM No comment entered. Ordering Provider: SYDNEE CLARK Report Released Date/Time: Feb 02, 2024 10:46 AM Reporting Lab: [facility] [place] [facility] [address] [facility] [address] Performing Lab: [facility] [place] [facility] [address] [facility] [address] [facility] HOSPITALRL [facility] [place] [facility] LIPID PANEL, NON FASTING CHOLESTERO L [MASS/VOLU ME] IN SERUM OR PLASMA 161 mg/dL 02/07 Specimen Type: SERUM No comment entered. Ordering Provider: SYDNEE CLARK Report Released Date/Time: Feb 02, 2024 10:46 AM Reporting Lab: [facility] [place] [facility] [address] [facility] [address] Performing Lab: [facility] [place] [facility] [address] [facility] [address] [facility] [place] [facility] LIPID PANEL, NON FASTING TRIGLYCERI DE [MASS/VOLU ME] IN SERUM OR PLASMA 102 mg/dL 0 - 150 02/07 Specimen Type: SERUM No comment entered. Ordering Provider: SYDNEE CLARK Report Released Date/Time: Feb 02, 2024 10:46 AM Reporting Lab: [facility] [place] [facility] [address] [facility] [address] Performing Lab: [facility] [address] [facility] [address] [facility] [place] [facility] LIPID PANEL, NON FASTING CHOLESTERO L IN LDL [MASS/VOLU ME] IN SERUM OR PLASMA BY SHERYL Foster 101 mg/dL 0 - 129 02/07 Specimen Type: SERUM No comment entered. Ordering Provider: SYDNEE CLARK Report Released Date/Time: Feb 02, 2024 10:46 AM Reporting Lab: [facility] [place] [facility] [address] [facility] [address] Performing Lab: [facility] [place] [facility] [address] [facility] [address] [place] [facility] [facility] LIPID PANEL, NON FASTING CHOLESTERO L.TOTAL/CH OLESTEROL IN HDL [MASS RATIO] IN SERUM OR PLASMA 4.0 02/07 Specimen Type: SERUM No comment entered. Ordering Provider: SYDNEE CLARK Report Released Date/Time: Feb 02, 2024 10:46 AM Reporting Lab: [facility] [place] [facility] [address] [facility] [address] Performing Lab: [facility] [place] [facility] [address] [facility] [address] [place] [facility] [facility] LIPID PANEL, NON FASTING CHOLESTERO L IN HDL [MASS/VOLU ME] IN SERUM OR PLASMA 40 mg/dL 40 - 60 02/07 Specimen Type: SERUM No comment entered. Ordering Provider: SYDNEE CLARK Report Released Date/Time: Feb 02, 2024 10:46 AM Reporting Lab: [facility] [place] [facility] [address] [facility] [address] Performing Lab: [facility] [place] [facility] [address] [facility] [address] [place] [facility] [facility] LIVER FUNCTION PROTEIN [MASS/VOLU ME] IN SERUM OR PLASMA 7.2 g/dL 6.0 - 8.3 02/07 Specimen Type: SERUM No comment entered. Ordering Provider: SYDNEE CLARK Report Released Date/Time: Feb 02, 2024 10:46 AM Reporting Lab: [facility] [place] [facility] [address] [facility] [address] Performing Lab: [facility] [place] [facility] [address] [facility] [address] [facility] [place] [facility] LIVER FUNCTION ALBUMIN [MASS/VOLU ME] IN SERUM OR PLASMA 4.0 g/dL 3.5 - 5.0 02/07 Specimen Type: SERUM No comment entered. Ordering Provider: SYDNEE CLARK Report Released Date/Time: Feb 02, 2024 10:46 AM Reporting Lab: [facility] [place] [facility] [address] [facility] [address] Performing Lab: [facility] [place] [facility] [address] [facility] [address] [place] [facility] [facility] LIVER FUNCTION ALKALINE PHOSPHATAS E [ENZYMATIC ACTIVITY/V OLUME] IN SERUM OR PLASMA 60 U/L 40 - 150 02/07 Specimen Type: SERUM No comment entered. Ordering Provider: SYDNEE CLARK Report Released Date/Time: Feb 02, 2024 10:46 AM Reporting Lab: [facility] [place] [facility] [address] [facility] [address] Performing Lab: [facility] [place] [facility] [address] [facility] [address] [facility] [place] [facility] LIVER FUNCTION ASPARTATE AMINOTRANS FERASE [ENZYMATIC ACTIVITY/V OLUME] IN SERUM OR PLASMA 26 U/L 5 - 34 02/07 Specimen Type: SERUM No comment entered. Ordering Provider: SYDNEE CLARK Report Released Date/Time: Feb 02, 2024 10:46 AM Reporting Lab: [facility] [place] [facility] [address] [facility] [address] Performing Lab: [facility] [place] [facility] [address] [facility] [address] [place] [facility] [facility] LIVER FUNCTION ALANINE AMINOTRANS FERASE [ENZYMATIC ACTIVITY/V OLUME] IN SERUM OR PLASMA 7 U/L 02/07 Specimen Type: SERUM No comment entered. Ordering Provider: SYDNEE CLARK Report Released Date/Time: Feb 02, 2024 10:46 AM Reporting Lab: [facility] [place] [facility] [address] [facility] [address] Performing Lab: [facility] [place] [facility] [address] [facility] [address] [facility] [place] [facility] LIVER FUNCTION BILIRUBIN. TOTAL [MASS/VOLU ME] IN SERUM OR PLASMA 1.1 mg/dL 0.2 - 1.2 02/07 Specimen Type: SERUM No comment entered. Ordering Provider: SYDNEE CLARK Report Released Date/Time: Feb 02, 2024 10:46 AM Reporting Lab: [facility] [place] [facility] [address] [facility] [address] Performing Lab: [facility] [place] [facility] [address] [facility] [address] [place] [facility] [facility] THYROID T4 FREE(FT4) THYROXINE (T4) FREE [MASS/VOLU ME] IN SERUM OR PLASMA 0.96 ng/dL 0.6 - 1.6 08/14 Specimen Type: SERUM No comment entered. Ordering Provider: SYDNEE CLARK Report Released Date/Time: Aug 03, 2023 08:54 AM Reporting Lab: [facility] [place] [facility] [address] [facility] [address] Performing Lab: [facility] [place] [facility] [address] [facility] [address] [facility] [place] [facility] Vital Signs Combined list of inpatient and outpatient Vital Signs from Department of Defense and Veterans Affairs, ranging from 12 months to all on record, depending upon the facility. Vital Sign Value Date Comments Source SYSTOLIC BLOOD PRESSURE 140 08/26/20 24 13:47:04 [facility] [place] [facility] DIASTOLIC BLOOD PRESSURE 87 024 13:47:04 [facility] [place] [facility] PULSE OXIMETRY 97 08/26/2024 13:47:04 [facility] [place] [facility] WEIGHT 189 08/26/2024 13:47:04 [facility] [place] [facility] BMI 27 kg/m2 08/26/2024 13:47:04 [facility] [place] [facility] [...] 10:40:16 [facility] [place] [facility] BMI 28 kg/m2 02/15/2024 10:40:16 [facility] [place] [facility] [...] from Department of Veterans Affairs facilities going backup to the last 18 months, not all VA inpatient encounters are included; 2) Encounters from the Department of Defense facilities going backup to 280 months. Location Location Details Encounter Type Encounter Number Reason For Visit Attending Provider ADM Date DC Date Status Disposition Source [facility] En[facility] [id number] 06/01 [facility] En[facility] [id number] 06/02 [facility] En[facility] [id number] 06/02 [facility] [place] En[facility] [id number] 07/26 [facility] En[facility] [id number] 07/27 [facility] En[facility] [id number] 08/09 [facility] OFFICE O/P EST LOW 20-29 MIN [id number] Diagnos is: ICD-10- CM Z23 Encount er for immuniz ation Dylan CLARK 08/14 [facility] En[facility] [id number] 10/19 [facility] En[facility] [id number] 12/14 [facility] En[facility] [id number] 12/21 [facility] En[facility] [id number] 02/08 [facility] En[facility] [id number] 02/08 [facility] OFF[facility] O/P EST LOW 20 MIN [id number] Diagnos is: ICD-10- CM I10 Essenti al (primar y) hyperte nsion Dylan CLARK 02/14 [facility] En[facility] [id number] 03/26 [facility] En[facility] [id number] 06/11 [facility] En[facility] [id number]/11 [facility] En[facility] [id number] 06/12 [facility] En[facility] [id number] 06/12 [facility] En[facility] [id number] 06/18 [facility] En[facility] [id number] 08/09 [facility] En[facility] [id number] 08/26 [facility] [facility] OFFICE O/P EST MOD 30 MIN [id number] Diagnos is: ICD-10- CM I48.91 Unspeci fied atrial fibrill atDylan Sharp J 08/26 [place] [facility] [facility] (631GE) MTMS BY PHARM EST 15 MIN [id number] Diagnos is: ICD-10- CM 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 (831GE) [facility] (631GE) MTMS BY PHARM EST 15 MIN [id number] Diagnos is: ICD-10- CM Z51.81 Encount er for therape utic drug level monitor NELLA Sen ISTINE F 09/24 [facility] (631GE) [place] [facility] [facility] Outpatient Encounter [id number] 10/30 [place] [facility] [facility] [place] [facility] Outpatient Encounter [id number] 11/01 [place] [facility] [facility] Social History Combined list of available smoking, tobacco, and other social history from Department of Defense and Veterans Affairs facilities. Social History Type Response Date Comment Sourc e Tobacco smoking status OKIS VA-TOBACCO QUIT 15 YRS OR MORE 08/26/2024 [place] [facility] [place] [facility] History of tobacco use VA-TOBACCO FORMER USER 08/26/2024 [facility] [place] [facility] History of tobacco use VA-TOBACCO FORMER USER 08/14/2023 [facility] History of tobacco use VA-TOBACCO FORMER USER 08/22/2022 [facility] [place] [facility] History of tobacco use VA-TOBACCO FORMER USER 03/20/2020 [place] [facility] [place] [facility] History of tobacco use VA-TOBACCO FORMER USER 11[facility]16/2018 [facility] Plan of Care List of future care activities from Department of Veterans Affairs facilities. Additional future care activities may be listed in the Assessment and Plan section. 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
--- OUTSIDE RECORDS SUMMARY | 2024-11-27 12:03 | XMS_ITS | Clinical Summary ---
Author Organization [facility] ity Address [address] [place] [address] Care Team Providers Care Data Conversion Analyst Name Role Phone Unavailable Primary Care Provider Unavailabl e Social History Tobacco Use Types Packs/Day Years Used Date Smoking Tobacco: Never Assessed Sex and Gender Information Value Date Recorded Sex Assigned at Not on file Legal Sex Male 2:28 AM EST Gender Identity Not on file Sexual Orientation Not on file Plan of Treatment Health Maintenance Due Date Last Done Comments DTaP,Tdap,and Td Vaccines (1 - Tdap) 1969 Pneumococcal Vaccine: 50+ Years (2 of 2 - PCV) 03/15/2020 03/15/2019 Abdominal Aortic Aneurysm (AAA) Screen 09/11/2022 Cholesterol Screening (Lipid Panel) 09/11/2022 Colorectal Cancer Screening: Colonoscopy 09/11/2022 Depression Screening 09/11/2022 Falls Risk Assessment 09/11/2022 Hepatitis C Screening 09/11/2022 Social Influencers of Health Screening 09/11/2022 COVID-19 Vaccine ( season) 2024 08/14/2023, 08/18/2022, 02/20/2022, Additional history exists Hypertension/CHF/CAD Annual BMP Blood Test 08/30/2024 RSV Immunization Patients 60+ Years Old (1 - 1-dose 75+ series) 2027 Zoster Vaccines Completed 07/09/2019, 03/15/2019 Influenza Vaccine Completed 06/18/2024, , 07/18/2022, Additional history exists HIB Vaccines Aged Out No longer eligi ble based on patient's age to complete this topic HPV Vaccines Aged Out No longer eligi ble based on patient's age to complete this topic Hepatitis A Vaccines Aged Out No long er eligible based on patient's age to complete this topic Hepatitis B Vaccines Aged Out No long er eligible based on patient's age to complete this topic IPV Vaccines Aged Out No longer eligi ble based on patient's age to complete this topic MMR Vaccines Aged Out No longer eligi ble based on patient's age to complete this topic Meningococcal ACWY Vaccine Aged Out N o longer eligible based on patient's age to complete this topic Meningococcal B Vacine Aged Out No lo nger eligible based on patient's age to complete this topic RSV Immunization Patients Under 20 months Aged Out No longer eligible based on patient's age to complete this topic Varicella Vaccines Aged Out No longer eligible based on patient's age to complete this topic Advance Directives Documents on File Type Date Recorded Patient Supervisor Edging Expl anation Health Care Decision (hx) 02/04/2013 AD DEGROOT DIRECTIVE Health Care Decision (hx) 02/04/2013 AD DEGROOT DIRECTIVE Health Care Decision (hx) 02/04/2013 AD DEGROOT DIRECTIVE Health Care Decision (hx) 01/29/2013 AD DEGROOT DIRECTIVE Health Care Decision (hx) 01/29/2013 AD DEGROOT DIRECTIVE Health Care Decision (hx) 01/29/2013 AD DEGROOT DIRECTIVE
--- OUTSIDE RECORDS SUMMARY | 2024-11-27 12:03 | XMS_ITS ---
Author Name [facility] [place] Address [address] [place] [address] Care Team Providers Care Heating Fixture Tender Name Role Phone BRAN POPE Primary Care [...] Butler's Name Patient's Relationship to Policy Butler [facility] (WNR) MEDICARE ADVANTAGE MCR (WNR) Oct 09, 2020 [id number] ANTHONYUMM Chamberlain PATIENT [facility] (WNR) MEDICARE ADVANTAGE MCR (WNR) Oct 09, 2020 [id number] ANTHONY,WIL MANJEET PATIENT [facility] (WNR) MEDICARE ADVANTAGE MCR (WNR) Apr 08, 2018 [id number] UMM CRUZ MANJEET PATIENT [facility] (WNR) MEDICARE ADVANTAGE MCR ([facility]) Apr 08, 2018 [id number] UMM CRUZ MANJEET PATIENT Selected Encounter This section includes the information on record at [place] for the Encounter. Date/Time Encounter Type Encounter Description Reason Provider Source Aug 26, 2024 02:00 PM OFFICE O/P EST MOD 30 MIN PRIMARY CARE/MEDICINE ICD-10-CM I48.91 Unspecified atrial fibrillation POPE,WILL ELVA Pearce IHE Encounter Template Text not used by [place] Assessments - Encounter Diagnoses This section includes the primary and secondary diagnoses documented for the Encounter. Date/Time Primary/Secondary Diagnosis Diagnosis Name Provider Source Aug 27, 2024 12:13 PM PRIMARY Unspecified atrial fibrillation POPE,WILL ELVA Pearce [facility] Aug 27, 2024 12:13 PM SECONDARY Essential (primary) hypertension POPE,WILL ELVA J [facility] Aug 27, 2024 12:13 PM SECONDARY senior living (current) use of anticoagulants POPE,WILL ELVA Ramses [facility] Plan of Treatment: Future Appointments (+ 6 months) and Future Tests (+/- 45 days) The Plan of Treatment section includes future care activities for the patient from all [place] [facility]. This section includes future appointments and future orders which are active, pending or scheduled. Future Appointments This section includes appointments that were scheduled to occur 6 months from the date of the Encounter, up to a maximum of 20 appointments. The data comes from all [facility]. Appointment Date/Time Appointment Type Appointme nt Facility Name Nov 20, 2024 07:45 AM AMBULATORY - MEDICINE [facility] Nov 27, 2024 11:30 AM AMBULATORY MEDICINE [facility] Active, Pending, and Scheduled Orders This section includes a listing of several types of active, pending, and scheduled orders, including clinic medications orders, diagnostic test orders, procedure orders and consult orders; where the start date of the order is 45 days before the date of the Encounter or 45 days after the date of theEncounter. The data comes from all [facility]. Test Date/Time Test Type Test Details Facility Name Aug 26, 2024 02:17 PM Consult Order COMMUNITY CARE-NEUROLOGY Cons Forestry Pilot's Choice [facility] Lab Results: +/- 30 days of the encounter This section includes the Chemistry and Hematology Lab Results on record with [place] for the patient. Radiology Reports and Pathology Reports are provided separately, in subsequent sections. Lab Results This section contains the Chemistry/Hematology Results that were resulted 30 days before or 30 daysafter the date of the Encounter. Date/Time Source Result Type Result - Unit Interpretation Reference Range Comment Aug 26, 2024 02:35 PM [facility] CBC Specimen Type: BLOOD No comment entered. Ordering Provider: VEGA POPE Report Released Date/Time: Aug 15, 2024 03:53 PM Reporting Lab: [address] [address] Performing Lab: [address] [address] WBC 7.30 10*3/uL 4.50-11.00 RBC 4.63 10*6/uL 4.23-5.66 HGB 14.4 g/dL 12.8-17 HCT 41.0 39.2-50.4 MCV 88.6 fL 82-99 MCHC 35.1 g/dL 30.8-35.1 PLT 153 10*3/uL 140-360 RDW-CV 12.8 12.0-16.0 MCH 31.1 pg 26.2-32.6 Aug 26, 2024 02:35 PM [facility] BASIC METABOLIC PANEL (non-fasting) Specimen Type: SERUM No comment entered. Ordering Provider: VEGA POPE Report Released Date/Time: Aug 15, 2024 03:53 PM Reporting Lab: [address] [address] Performing Lab: [address] [address] UREA NITROGEN 22 mg/dL 7-25 GLUCOSE 91 mg/dL 65-100 SODIUM 137 mmol/L 135-145 POTASSIUM 4.0 mmol/L 3.5-5.0 CHLORIDE 104 mmol/L 100-110 CO2 22 meq/L 20-30 CREATININE, Serum 0.84 mg/dL 0.50-1.40 eGFR(CKD-EPI 2020) >90 mL/min >60 Aug 26, 2024 02:35 PM [facility] LIPID PANEL, NON FASTING Specimen Type: SERUM No comment entered. Ordering Provider: VEGA POPE Report Released Date/Time: Aug 15, 2024 03:53 PM Reporting Lab: [facility] [address] [facility] [address] Performing Lab: [facility] [address] [facility] [address] CHOLESTEROL 209 mg/dL H TRIGLYCERIDE 301 mg/dL H 0-150 LDL calculated Reflex to dLDL mg/dL 0-129 CHOL/HDL 4.5 HDL CHOLESTEROL 46 mg/dL 40-60 LDL DIRECT 124 mg/dL H Aug 26, 2024 02:35 PM [facility] LIVER FUNCTION Specimen Type: SERUM No comment entered. Ordering Provider: VEGA POPE Report Released Date/Time: Aug 15, 2024 03:53 PM Reporting Lab: [facility] [address] [address] Performing Lab: [address] [address] PROTEIN,TOTAL 7.6 g/dL 6.0-8.3 ALBUMIN 4.1 g/dL 3.5-5.0 ALKALINE PHOSPHATASE 54 U/L 40-150 AST 25 U/L 5-34 ALT 6 U/L BILIRUBIN, TOTAL 0.8 mg/dL 0.2-1.2 Aug 26, 2024 02:35 PM [facility] PT & INR (COUMADIN) Specimen Type: PLASMA No comment entered. Ordering Provider: VEGA POPE Report Released Date/Time: Aug 26, 2024 02:15 PM Reporting Lab: [facility] [address] [facility] [address] Performing Lab: [facility] [address] [address] INR 1.5 PROTIME 16.1 s H 10.0-13.1 Vital Signs: All taken on the encounter date This section contains inpatient and outpatient Vital Signs collected on the date of the Encounter. Date/Time Temperature Pulse Blood Pressure Respiratory Rate SP02 Pain Height Weight Body Mass Index Source Aug 26, 2024 02:24 PM 134/78 [facility] Aug 26, 2024 01:47 PM 97.5 81 140/87 20 97 5 70 189 27 [place] [facility] [facility] Social History: Smoking Status (Most current) and Tobacco Use (All prior to encounter date) This section includes the most current, and the historical, smoking and tobacco- related health factors from the [place] facility where the Encounter took place. Current Smoking Status This section includes the most current smoking, or tobacco-related health factor, from the [place] facility where the Encounter took place. Date/Time Current Smoking Status Comment Facil ity Aug 26, 2024 02:00 PM VA-TOBACCO FORMER USER [place] [facility] [facility] Tobacco Use History This section includes a history of the smoking, or tobacco-related health factors, that were collected on or before the date of the Encounter. The data comes from the [place] facility where the Encounter took place. Date/Time Smoking Status/Tobacco Use Comment F acility Aug 26, 2024 02:00 PM VA-TOBACCO QUIT 15 YRS OR MORE [place] [facility] [place] [facility] Aug 14, 2023 01:00 PM VA-TOBACCO FORMER USER [place] [facility] [place] [facility] Aug 14, 2023 01:00 PM VA-TOBACCO QUIT 15 YRS OR MORE [place] [facility] [place] [facility] Aug 22, 2022 03:00 PM VA-TOBACCO FORMER USER [place] [facility] [place] [facility] Aug 22, 2022 03:00 PM VA-TOBACCO QUIT 15 YRS OR MORE [facility] [place] [facility] Mar 20, 2020 03:08 PM VA-TOBACCO FORMER USER [place] [facility] [place] [facility] Mar 20, 2020 03:08 PM VA-TOBACCO QUIT 15 YRS OR MORE [facility] [place] [facility] Nov 16, 2018 10:37 AM VA-TOBACCO FORMER USER [place] [facility] [place] [facility] Nov 16, 2018 10:37 AM VA-TOBACCO QUIT 15 YRS OR MORE [place] [facility] [facility] Encounter Notes: All associated encounter notes [...] complaint: Patient is a 74 year old [place]. HPI: Pleasant male here to follow up. Feeling well. Since our visit he was diagnosed with afib and now on apixaban. He is following with Dr. Patel, [facility]. Allergies: BEE VENOM, TETANUS TOXOID The [...] 13:47)BMI: 27.2189 lb [85.73 kg] (08/26/2024 13:47) [place] is alert and oriented X3 Neck: supple [...] due next year 4. Parkinson disease - [facility], Dr Hart 5. HTN - Hypertension - [id number] Review of medial record = 5mins Time [...] independent of and without assistance from this [place]. HTN Assess for Elevated BP>=140/90: Repeat blood [...] of active outpatient prescriptions dispensed from this [place] (local) and dispensed from another [place] or [place] facility (remote) as well as [...] or non-VA provider. /oscar/ Bran Pope DNP, CHEMISTRY PHYSICS TEACHER-BC, CNL Primary Care Nurse Practitioner Signed: 08/26/2024 14:[address] [facility] Aug 26, 2024 02:03 PM PREVENTIVE MEDICINE [...] this can be accurately recorded in their [place] medical record. 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 Suicide Screen: C-SSRS Screening [place]-Suicide Severity Rating Scale (C-SSRS Screener) 1. Over [...] full rights to use it throughout the [place] system. PRIMARY SCREEN RESULT: The Primary Screen is NEGATIVE. The individual answered never to all forms of IPV above (i.e., answered never to all 5 items) The individual accepts education and/or resources: No EDUCATION: Other: not interested at this time /oscar/ Ramon Almend[facility] [employer] Collector STRAIGHTEDGE WORKER,PRIMARY CARE Signed: 08/26/2024 13:53 RAMON ALMENDAREZ [place] [facility]
--- OUTSIDE RECORDS SUMMARY | 2024-11-27 12:03 | XMS_ITS | Encounter Summary ---
Author Name [facility] [place] Organization [place] Address [address] [place] [address] Care Team Providers Care Provider Scribe Name Role Phone ALISON CLARK Primary Care [...] Name Patient's Relationship to Policy Butler AARP [facility] (WNR) MEDICARE ADVANTAGE MCR (WNR) Oct 09, 2020 [id number] ANTHONY,WIL MANJEET PATIENT [facility] MCR (WNR) MEDICARE ADVANTAGE [facility] (WNR) Oct 09, 2020 [id number] ANTHONY,WIL MANJEET PATIENT [facility] MCR (WNR) MEDICARE ADVANTAGE [facility] (WNR) Apr 08, 2018 [id number] ANTHONY,WIL MANJEET PATIENT [facility] (WNR) MEDICARE ADVANTAGE MCR (WNR) Apr 08, 2018 [id number] UMM CRUZM PATIENT Selected Encounter This section includes the information on record at [place] for the Encounter. Date/Time Encounter Type Encounter Description Reason Pro vider Source Oct 30, 2024 09:58 AM Outpatient Encounter ADMIN PAT ACTIVTIES (MASNONCT) IHE Encounter Template Text not used by [place] Plan of Treatment: Future Appointments (+ 6 months) and Future Tests (+/- 45 days) The Plan of Treatment section includes future care activities for the patient from all [place] [facility]. This section includes future appointments and future orders which are active, pending or scheduled. Future Appointments This section includes appointments that were scheduled to occur 6 months from the date of the Encounter, up to a maximum of 20 appointments. The data comes from all [facility]. Appointment Date/Time Appointment Type Appointme nt Facility Name Nov 20, 2024 07:45 AM AMBULATORY - MEDICINE [facility] Nov 27, 2024 11:30 AM AMBULATORY MEDICINE [facility] February 26, 2025 10:00 AM AMBULATORY MEDICINE [facility] Active, Pending, and Scheduled Orders This [...] Date/Time Test Type Test Details Facility Name Nov 06, 2024 01:19 PM Consult Order COMMUNITY CARE-DERMATOLOGY Cons Method Consultant's Choice [facility] Social History: Smoking Status (Most current) [...] 26, 2024 02:00 PM VA-TOBACCO FORMER USER [facility] Tobacco Use History This section includes a history of the smoking, or tobacco-related health factors, that were collected on or before the date of the Encounter. The data comes from the [place] facility where the Encounter took place. Date/Time Smoking Status/Tobacco Use Comment F acility Aug 26, 2024 02:00 PM [place]-TOBACCO QUIT 15 YRS OR MORE [place] [facility] [place] [facility] Aug 14, 2023 01:00 PM VA-TOBACCO FORMER USER [place] [facility] [place] [facility] Aug 14, 2023 01:00 PM VA-TOBACCO QUIT 15 YRS OR MORE [place] [facility] [place] [facility] Aug 22, 2022 03:00 PM VA-TOBACCO FORMER USER [place] [facility] [place] [facility] Aug 22, 2022 03:00 PM VA-TOBACCO QUIT 15 YRS OR MORE [place] [facility] [place] [facility] Mar 20, 2020 03:08 PM VA-TOBACCO FORMER USER [facility] [place] [facility] Mar 20, 2020 03:08 PM VA-TOBACCO QUIT 15 YRS OR MORE [facility] [place] [facility] Nov 16, 2018 10:37 AM VA-TOBACCO FORMER USER [facility] [place] [facility] Nov 16, 2018 10:37 AM VA-TOBACCO QUIT 15 YRS OR MORE [facility] [place] [facility] Encounter Notes: All associated encounter notes This section contains the clinical notes associated to the Encounter. Date/Time Encounter Note(s) Provider Source Oct 30, 2024 10:00 AM ADDENDUM: LOCAL TITLE: Addendum STANDARD TITLE: ADDENDUM DATE OF NOTE: OCT 30, 2024@10:00:04 ENTRY DATE: OCT 30, 2024@10:00:05 AUTHOR: GLORY VIZCARRA COSIGNER: URGENCY: STATUS: COMPLETED also requesting a renewal: [id number] CARBIDOPA 25/LEVODOPA 100MG TAB /oscar/ GLORY VIZCARRA CPhT Block Operator, MS/Pharmacy Customer Care Signed: 10/30/2024 10:00 Receipt Acknowledged By: 11/06/2024 12:25 /oscar/ ADELINE JONES MD PHYSICIAN ====== --- Original Document --- 10/30/24 V1 PHARMACY CUSTOMER CARE MEDICATION RENEWAL: Date: Oct Division: [place] Pt referred by Pharmacy Call Center for medication renewal: Non-controlled/maintenan ce medication Medications requested: [id number] RASAGILINE MESYLATE 1MG TAB Patient is out of medication and would appreciate expedited delivery if available. Please contact the outpatient pharmacy for assistance with shipment Defer to specialty clinic To be mailed . Please review and renew if appropriate. *This note was generated by [facility] Pharmacy Customer Care. If you have any questions or need assistance, do not contact this author. Please refer all questions to your local, on-site pharmacy departments. /rip VIZCARRA CPhT Block Operator, [place]/Pharmacy Customer Care Signed: 10/30/2024 09:59 Receipt Acknowledged By: 11/06/2024 12:25 /oscar/ ADELINE JONES MD PHYSICIAN GLORY VIZCARRA V [place] [facility] [place] [facility] Oct 30, 2024 09:58 AM PHARMACY NOTE: LOCAL TITLE: PHARMACY CUSTOMER CARE MEDICATION RENEWAL STANDARD TITLE: PHARMACY NOTE DATE OF NOTE: OCT 30, 2024@09:58 ENTRY DATE: OCT 30, 2024@09:58:34 AUTHOR: GLORY VIZCARRA V EXP COSIGNER: URGENCY: STATUS: COMPLETED PHARMACY CUSTOMER CARE MEDICATION RENEWAL Has ADDENDA Date: Oct Division: [place] Pt referred by Pharmacy Call Center for medication renewal: Non-controlled/maintenan ce medication Medications requested: [id number] RASAGILINE MESYLATE 1MG TAB Patient is out of medication and would appreciate expedited delivery if available. Please contact the outpatient pharmacy for assistance with shipment Defer to specialty clinic To be mailed . Please review and renew if appropriate. *This note was generated by [facility] Pharmacy Customer Care. If you have any questions or need assistance, do not contact this author. Please refer all questions to your local, on-site pharmacy departments. /rip VIZCARRA CPhT Block Operator, [place]/Pharmacy Customer Care Signed: 10/30/2024 09:59 Receipt Acknowledged By: 11/06/2024 12:25 /oscar/ ADELINE JONES MD PHYSICIAN 10/30/2024 ADDENDUM STATUS: COMPLETED also requesting a renewal: [id number] CARBIDOPA 25/LEVODOPA 100MG TAB /es/ GLORY VIZCARRA CPhT Block Operator, MS/Pharmacy Customer Care Signed: 10/30/2024 10:00 Receipt Acknowledged By: * AWAITING SIGNATURE * ADELINE JONES JACKIE V [place] CNTL WSN [facility]
--- OUTSIDE RECORDS SUMMARY | 2024-11-27 12:03 | XMS_ITS ---
Author Name [facility] [place] Organization [facility] [place] Address [address] [place] [id number] Care Team Providers Care Executive Consultant Name Role Phone BRAN POPE Primary Care [...] Butler's Name Patient's Relationship to Policy [facility] (WNR) MEDICARE ADVANTAGE [facility] (WNR) Oct 09, 2020 [id number] ANTHONYUMM Chamberlain PATIENT [facility] (WNR) MEDICARE ADVANTAGE [facility] (WNR) Oct 09, 2020 [id number] ANTHONY,WIL MANJEET PATIENT [facility] (WNR) MEDICARE ADVANTAGE [facility] (WNR) Apr 08, 2018 [id number] ANTHONY,WIL MANJEET PATIENT [facility] (WNR) MEDICARE ADVANTAGE [facility] ([facility]) Apr 08, 2018 [id number] UMM CRUZM PATIENT Selected Encounter This section includes the information on record at [place] for the Encounter. Date/Time Encounter Type Encounter Description Reason Provider Source February 15, 2024 11:00 AM OFFICE O/P EST LOW 20 MIN PRIMARY CARE/MEDICINE ICD-10-CM I10 Essential (primary) hypertension VEGA POPE IHE Encounter Template Text not used by [place] Assessments - Encounter Diagnoses This section includes the primary and secondary diagnoses documented for the Encounter. Date/Time Primary/Secondary Diagnosis Diagnosis Name Provider Source February 15, 2024 11:17 AM PRIMARY Essential (primary) hypertension VEGA POPE [facility] February 15, 2024 11:17 AM SECONDARY Parkinson's dis w/o dyskinesia, w/o mention of fluctuations VEGA POPE [facility] Plan of Treatment: Future Appointments (+ 6 months) and Future Tests (+/- 45 days) The Plan of Treatment section includes future care activities for the patient from all [place] treatmentfacilities. This section includes future appointments and future orders which are active, pending or scheduled. Future Appointments This section includes appointments that were scheduled to occur 6 months from the date of the Encounter, up to a maximum of 20 appointments. The data comes from all [place] treatment facilities. Appointment Date/Time Appointment Type Appointme nt Facility Name Aug 09, 2024 01:30 PM AMBULATORY - MEDICINE [facility] Lab Results: +/- 30 days of the encounter This section includes the Chemistry and Hematology Lab Results on record with [place] for the patient. Radiology Reports and Pathology Reports are provided separately, in subsequent sections. Lab Results This section contains the Chemistry/Hematology Results that were resulted 30 days before or 30 daysafter the date of the Encounter. Date/Time Source Result Type Result - Unit Interpretation Reference Range Comment February 08, 2024 09:18 AM [facility] CBC Specimen Type: BLOOD No comment entered. Ordering Provider: VEGA POPE Report Released Date/Time: Feb 02, 2024 10:46 AM Reporting Lab: [facility] [address] [facility] [address] Performing Lab: [facility] [address] [facility] [address] WBC 5.84 10*3/uL 4.50-11.00 RBC 4.62 10*6/uL 4.23-5.66 HGB 14.3 g/dL 12.8-17 HCT 40.9 39.2-50.4 MCV 88.5 fL 82-99 MCHC 35.0 g/dL 30.8-35.1 PLT 162 10*3/uL 140-360 RDW-CV 12.4 12.0-16.0 MCH 31.0 pg 26.2-32.6 February 08, 2024 09:18 AM [facility] BASIC METABOLIC PANEL (non-fasting) Specimen Type: SERUM No comment entered. Ordering Provider: VEGA POPE Report Released Date/Time: Feb 02, 2024 10:46 AM Reporting Lab: [address] [address] Performing Lab: [address] [address] UREA NITROGEN 23 mg/dL 7-25 GLUCOSE 112 mg/dL H 65-100 SODIUM 137 mmol/L 135-145 POTASSIUM 3.9 mmol/L 3.5-5.0 CHLORIDE 100 mmol/L 100-110 CO2 27 meq/L 20-30 CREATININE, Serum 1.01 mg/dL 0.50-1.40 eGFR(CKD-EPI 2020) 79 mL/min >60 February 08, 2024 09:18 AM [facility] LIPID PANEL, NON FASTING Specimen Type: SERUM No comment entered. Ordering Provider: VEGA POPE Report Released Date/Time: Feb 02, 2024 10:46 AM Reporting Lab: [address] [address] Performing Lab: [address] [address] CHOLESTEROL 161 mg/dL TRIGLYCERIDE 102 mg/dL 0-150 LDL calculated 101 mg/dL 0-129 CHOL/HDL 4.0 HDL CHOLESTEROL 40 mg/dL 40-60 February 08, 2024 09:18 AM [facility] LIVER FUNCTION Specimen Type: SERUM No comment entered. Ordering Provider: VEGA POPE Report Released Date/Time: Feb 02, 2024 10:46 AM Reporting Lab: [address] [place] [address] Performing Lab: [place] [facility] [place] [facility] [address] [facility] [address] PROTEIN,TOTAL 7.2 g/dL 6.0-8.3 ALBUMIN 4.0 g/dL 3.5-5.0 ALKALINE PHOSPHATASE 60 U/L 40-150 AST 26 U/L 5-34 ALT 7 U/L BILIRUBIN, TOTAL 1.1 mg/dL 0.2-1.2 Vital Signs: All taken on the encounter date This section contains inpatient and outpatient Vital Signs collected on the date of the Encounter. Date/Time Temperature Pulse Blood Pressure Respiratory Rate SP02 Pain Height Weight Body Mass Index Source February 15, 2024 11:15 AM 126/66 [place] [facility] [facility] February 15, 2024 10:40 AM 97.1 52 152/97 20 99 0 70 192 28 [place] [facility] [facility] Social History: Smoking Status (Most current) and Tobacco Use (All prior to encounter date) This section includes the most current, and the historical, smoking and tobacco- related health factors from the [place] facility where the Encounter took place. Current Smoking Status This section includes the most current smoking, or tobacco-related health factor, from the [place] facility where the Encounter took place. Date/Time Current Smoking Status Comment Facil ity Aug 14, 2023 01:00 PM VA-TOBACCO FORMER USER [place] [facility] [place] [facility] Tobacco Use History This section includes a history of the smoking, or tobacco-related health factors, that were collected on or before the date of the Encounter. The data comes from the [place] facility where the Encounter took place. Date/Time Smoking Status/Tobacco Use Comment F acility Aug 14, 2023 01:00 PM VA-TOBACCO QUIT 15 YRS OR MORE [place] [facility] [place] [facility] Aug 22, 2022 03:00 PM VA-TOBACCO FORMER USER [place] [facility] [place] [facility] Aug 22, 2022 03:00 PM VA-TOBACCO QUIT 15 YRS OR MORE [place] [facility] [place] [facility] Mar 20, 2020 03:08 PM VA-TOBACCO FORMER USER [place] [facility] [place] [facility] Mar 20, 2020 03:08 PM VA-TOBACCO QUIT 15 YRS OR MORE [place] [facility] [place] [facility] Nov 16, 2018 10:37 AM VA-TOBACCO FORMER USER [place] [facility] [place] [facility] Nov 16, 2018 10:37 AM VA-TOBACCO QUIT 15 YRS OR MORE [place] [facility] [place] [facility] Encounter Notes: All associated encounter notes This section contains the clinical notes associated to the Encounter. Date/Time Encounter Note(s) Provider Source February 15, 2024 11:11 AM PRIMARY CARE NURSE PRACTITIONER OUTPATIENT NOTE: LOCAL TITLE: NURSE PRACTITIONER OUTPATIENT NOTE STANDARD TITLE: PRIMARY CARE NURSE PRACTITIONER OUTPATIENT NOTE DATE OF NOTE: FEBRUARY 15, 2024@11:11 ENTRY DATE: FEBRUARY 15, 2024@11:11:40 AUTHOR: BRAN POPE COSIGNER: URGENCY: STATUS: COMPLETED Chief complaint: Patient is a 73 year old [place]. HPI: Pleasant male here to follow up. Feeling well. Lives with his , very supportive. Allergies: BEE VENOM, TETANUS TOXOID The following VA and Non-VA meds were reconciled with patient. The patient was educated on the use of the medications including indication and side effects. Active and Recently Outpatient Medications (excluding Supplies): Active Outpatient Medications Status 1) CARBIDOPA 25/LEVODOPA 100MG TAB TAKE 1 TABLET BY ACTIVE MOUTH FOUR TIMES A DAY 2) EPINEPHRINE (EQV-EPI-PEN) 0.3MG/0.3ML INJECT ACTIVE DIRECTED INTRAMUSCULARLY ONE TIME 3) RASAGILINE MESYLATE 1MG TAB TAKE ONE TABLET BY MOUTH ACTIVE AT BEDTIME Active Non-VA Medications Status 1) Non-VA VALSARTAN TAB DIRECTED BY MOUTH ONCE DAILY ACTIVE 4 Total Medications Review of Systems: Constitutional: (-)for Fevers, chills, weakness, nights sweats On examination: 97.1 F [36.2 C] (02/15/2024 10:40)152/97 (02/15/2024 10:40)52 (02/15/2024 10:40) 20 (02/15/2024 10:40)0 (02/15/2024 10:40)BMI: 27.6192 lb [87.09 kg] (02/15/2024 10:40) is alert and oriented X3 Neck: supple [...] List is the source for the followin. Asbestosis - having no sx 2. Parkinson disease - follows [facility], Dr Hart 3. HTN - Hypertension - well controlled Review of medial record = 5mins Time spent with Patient including shared decision making = 15 mins Post visit documentation = 5mins Total time = 25 mins Follow up visit in 6 mos. Alert to PACT RN - Labs as necessary to address clinical status. PTSD Screening: PC-PTSD-5 A PTSD screening test (PC-PTSD-5) was negative (score=0). IN THE PAST MONTH, have you ever had any experience that was so frightening, horrible or traumatic. For example: A serious accident or fire a physical or sexual assault or abuse An earthquake or flood A war Seeing someone be killed or seriously injured Having a loved one through homicide or suicide 1. Have you ever experienced this kind of event? YES 2. Had nightmares about the event(s) or thought about the event(s) when you did not want to? NO 3. Tried hard not to think about the event(s) or went out of your way to avoid situations that reminded you of the event(s)? NO 4. Been constantly on guard, watchful, or easily startled? NO 5. [place] numb or detached from people, activities, or your surroundings? NO 6. [place] guilty or unable to stop blaming yourself or others for the event(s) or any problems the event(s) may have caused? NO HTN Assess for Elevated BP>=140/90: Repeat blood pressure: 126/66 The patient's blood pressure is usually adequately [...] of active outpatient prescriptions dispensed from this [place] (local) and dispensed from another [place] or [facility] facility (remote) as well as inpatient orders [...] VA or non-VA provider. /oscar/ Bran Pope [facility], FISH FARMER-, CNL Primary Care Nurse Practitioner Signed: 02/15/2024 11:16 BRAN POPE [place] [facility] [place] [facility] February 15, 2024 11:01 AM PRIMARY CARE NURSE PRACTITIONER OUTPATIENT NOTE: LOCAL TITLE: NURSE PRACTITIONER OUTPATIENT NOTE STANDARD TITLE: PRIMARY CARE NURSE PRACTITIONER OUTPATIENT NOTE DATE OF NOTE: FEBRUARY 15, 2024@11:01 ENTRY DATE: FEBRUARY 15, 2024@11:02 AUTHOR: BRAN POPE EXP COSIGNER: URGENCY: STATUS: COMPLETED LAB CHEMISTRY & HEMATOLOGY Collection DT Specimen Test Name Result Units Ref Range 02/08/2024 09:18 SERUM CREATININE, Serum 1.01 mg/dL 0.50 - 1.40 eGFR(CKD-EPI 2020 79 mL/min Ref: >=60 SODIUM 137 mmol/L 135 - 145 POTASSIUM 3.9 mmol/L 3.5 - 5.0 CHLORIDE 100 mmol/L 100 - 110 CO2 27 mEq/L 20 - 30 UREA NITROGEN 23 mg/dL 7 - 25 GLUCOSE 112 H mg/dL 65 - 100 PROTEIN,TOTAL 7.2 g/dL 6.0 - 8.3 ALBUMIN 4.0 g/dL 3.5 - 5.0 ALK LEÓN 60 U/L 40 - 150 AST 26 U/L 5 - 34 BILIRUBIN, TOTAL 1.1 mg/dL 0.2 - 1.2 CHOLESTEROL 161 mg/dL <7 - 199 TRIGLYCERIDE 102 mg/dL 0 - 150 LDL calculated 101 mg/dL 0 - 129 CHOL/HDL 4.0 ALT 7 U/L <6 - 55 HDL CHOLESTEROL 40 mg/dL 40 - 60 02/08/2024 09:18 BLOOD WBC 5.84 K/cmm 4.50 - 11.00 RBC 4.62 M/cmm 4.23 - 5.66 HGB 14.3 g/dL 12.8 - 17 HCT 40.9 % 39.2 - 50.4 MCV 88.5 fl 82 - 99 MCH 31.0 pg 26.2 - 32.6 MCHC 35.0 g/dL 30.8 - 35.1 RDW-CV 12.4 % 12.0 - 16.0 PLT 162 K/cmm 140 - 360 /es/ Bran Pope DNP, FISH FARMER-BC, CNL Primary Care Nurse Practitioner Signed: 02/15/2024 11:11 BRAN POPE [place] [facility] [place] [facility] February 15, 2024 10:42 AM PREVENTIVE MEDICINE NURSING NOTE: LOCAL TITLE: CLINICAL REMINDERS/NURSING STANDARD TITLE: PREVENTIVE MEDICINE NURSING NOTE DATE OF NOTE: FEBRUARY 15, 2024@10:42 ENTRY DATE: FEBRUARY 15, 2024@10:42:36 AUTHOR: RAMON ALMENDAREZ EXP COSIGNER: URGENCY: STATUS: COMPLETED Homelessness/Food Insecurity Screen: In the past 2 months, have you been living in stable housing that you own, rent, or stay in as part of a household? Yes - Living in stable housing. Are you worried or concerned that in the next 2 months you may NOT have stable housing that you own, rent, or stay in as part of a household? No - Not worried about housing near future [facility] [place] reports the following: Within the past 12 months, you worried whether your food would run out before you got money to buy more. Never true Within the past 12 months, the food you bought just didn't last and you didn't have money to get more. Never true /es/ Ramon Almendarez, Health Security Patrol Officer BOND BROKER,PRIMARY CARE Signed: 02/15/2024 10:43 RAMON ALMENDAREZ CNTRL [facility]
--- OUTSIDE RECORDS SUMMARY | 2024-11-27 12:03 | XMS_ITS | Encounter Summary ---
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 (WNR) MEDICARE ADVANTAGE [facility] (WNR) Oct 09, 2020 [id number] ANTHONYUMM ChamberlainM PATIENT [facility] M[facility] (WNR) MEDICARE ADVANTAGE [facility] (WNR) Oct 09, 2020 [id number] ANTHONY,WIL MANJEET PATIENT [facility] (WNR) MEDICARE ADVANTAGE [facility] (WNR) Apr 08, 2018 [id number] 06 ANTHONY,WIL MANJEET PATIENT [facility] (WNR) MEDICARE ADVANTAGE MCR (WNR) Apr 08, 2018 [id number] ANTHONYUMM SIMONM PATIENT Selected Encounter This section includes the information on record at [place] for the Encounter. Date/Time Encounter Type Encounter Description Reason Pro vider Source Nov 01, 2024 12:00 AM Outpatient Encounter EVENT (HISTORICAL) IHE Encounter Template Text not used by [place] Plan of Treatment: Future Appointments (+ 6 months) and Future Tests (+/- 45 days) The Plan of Treatment section includes future care activities for the patient from all [place] [facility]. This section includes future appointments and future orders which are active, pending or scheduled. Future Appointments This section includes appointments that were scheduled to occur 6 months from the date of the Encounter, up to a maximum of 20 appointments. The data comes from all [facility]. Appointment Date/Time Appointment Type Appointme nt Facility Name Nov 20, 2024 07:45 AM AMBULATORY - MEDICINE [facility] Nov 27, 2024 11:30 AM AMBULATORY MEDICINE [facility] February 26, 2025 10:00 AM AMBULATORY MEDICINE [facility] Active, Pending, and Scheduled Orders This section includes a listing of several types of active, pending, and scheduled orders, including clinic medications orders, diagnostic test orders, procedure orders and consult orders; where the start date of the order is 45 days before the date of the Encounter or 45 days after the date of theEncounter. The data comes from all [facility]. Test Date/Time Test Type Test Details Facility Name Nov 06, 2024 01:19 PM Consult Order COMMUNITY CARE-DERMATOLOGY Cons Automotive Brake Specialist's Choice [facility] Social History: Smoking Status (Most current) and Tobacco Use (All prior to encounter date) This section includes the most current, and the historical, smoking and tobacco- related health factors from the [place] facility where the Encounter took place. Current Smoking Status This section includes the most current smoking, or tobacco-related health factor, from the [place] facility where the Encounter took place. Date/Time Current Smoking Status Comment Facil ity Aug 26, 2024 02:00 PM ID-TOBACCO QUIT 15 YRS OR MORE [facility] Tobacco Use History This section includes a history of the smoking, or tobacco-related health factors, that were collected on or before the date of the Encounter. The data comes from the [place] facility where the Encounter took place. Date/Time Smoking Status/Tobacco Use Comment F acility Aug 26, 2024 02:00 PM ID-TOBACCO QUIT 15 YRS OR MORE [facility] Aug 14, 2023 01:00 PM VA-TOBACCO FORMER USER VA [facility] [place] [facility] Aug 14, 2023 01:00 PM VA-TOBACCO QUIT 15 YRS OR MORE [place] [facility] [facility] Aug 22, 2022 03:00 PM VA-TOBACCO FORMER USER [place] [facility] [place] [facility] Aug 22, 2022 03:00 PM VA-TOBACCO QUIT 15 YRS OR MORE [place] [facility] [facility] Mar 20, 2020 03:08 PM VA-TOBACCO FORMER USER [place] [facility] [place] [facility] Mar 20, 2020 03:08 PM VA-TOBACCO QUIT 15 YRS OR MORE [facility] [place] [facility] Nov 16, 2018 10:37 AM VA-TOBACCO FORMER USER [place] [facility] [place] [facility] Nov 16, 2018 10:37 AM VA-TOBACCO QUIT 15 YRS OR MORE [place] [facility] [place] [facility] Encounter Notes: All associated encounter notes This section contains the clinical notes associated to the Encounter. Date/Time Encounter Note(s) Provider Source Nov 01, 2024 12:00 AM NONVA NOTE: LOCAL TITLE: [facility]-REQUEST FOR SERVICE NOTE STANDARD TITLE: NONVA NOTE DATE OF NOTE: NOV 01, 2024 ENTRY DATE: NOV 26, 2024@15:30:48 AUTHOR: KAREEM HAY EXP COSIGNER: URGENCY: STATUS: COMPLETED VistA Imaging - Scanned Document /oscar/ KAREEM HAY Signed: 11/26/2024 15:30 KAREEM HAY [place] [facility] [place] [facility]
== END 2024-11-27 12:08 | disposition home or self-care (01) ==
PROVIDERS: PCP Internal Medicine; Visit Provider Nurse Practitioner Family
DX: G20.A1 Parkinson's disease without dyskinesia, without mention of fluctuations (principal); R06.83 Snoring; G47.10 Hypersomnia, unspecified
CPT/HCPCS: 99214

== ENCOUNTER → 2024-11-27 11:23 | Outpatient (BNVA) | payer MEDICARE, SELFPAY | PROVIDERS: PCP Internal Medicine; Visit Provider Nurse Practitioner Family | DX: I48.91 Unspecified atrial fibrillation (principal); G20.A1 Parkinson's disease without dyskinesia, without mention of fluctuations; R06.83 Snoring; G47.10 Hypersomnia, unspecified; Z79.01 Long term (current) use of anticoagulants | CPT/HCPCS: 99212 ==

== ENCOUNTER → 2024-12-11 19:30 | Outpatient (REF) | payer MEDICARE, SELFPAY ==
--- OUTSIDE RECORDS SUMMARY | 2024-12-11 22:46 | XMS_ITS ---
Author Name Department of [facility] [place] [facility] [place] Organization [facility] [place] Address [address] [place] [address] Care Team Providers Care Patient Accounts Specialist Name Role Phone ALISON CLARK Primary Care [...] Butler's Name Patient's Relationship to Policy Butler [facility] (WNR) MEDICARE ADVANTAGE [facility] (WNR) Oct 09, 2020 [id number] ANTHONYUMM Chamberlain PATIENT [facility] (WNR) MEDICARE ADVANTAGE [facility] (WNR) Oct 09, 2020 [id number] ANTHONYUMM Chamberlain PATIENT [facility] (WNR) MEDICARE ADVANTAGE [facility] (WNR) Apr 08, 2018 [id number] [phone] UMM CRUZ PATIENT Selected Encounter This section includes the information on record at [place] for the Encounter. Date/Time Encounter Type Encounter Description Reason Pro vider Source Nov 20, 2024 12:00 AM Outpatient Encounter COMMUNITY CARE CONSULT IHE Encounter Template Text not used by VA Plan of Treatment: Future Appointments (+ 6 months) and Future Tests (+/- 45 days) The Plan of Treatment section includes future care activities for the patient from all VA treatmentfacilities. This section includes future appointments and future orders which are active, pending or scheduled. Future Appointments This section includes appointments that were scheduled to occur 6 months from the date of the Encounter, up to a maximum of 20 appointments. The data comes from all [place] treatment facilities. Appointment Date/Time Appointment Type Appointme nt Facility Name Nov 27, 2024 11:30 AM AMBULATORY - MEDICINE [place] [facility] February 26, 2025 10:00 AM AMBULATORY - MEDICINE [facility] [place] [facility] Social History: Smoking Status (Most current) and Tobacco Use (All prior to encounter date) This section includes the most current, and the historical, smoking and tobacco- related health factors from the [place] facility where the Encounter took place. Current Smoking Status This section includes the most current smoking, or tobacco-related health factor, from the [place] facility where the Encounter took place. Date/Time Current Smoking Status Comment Facil ity Aug 26, 2024 02:00 PM VA-TOBACCO FORMER USER [place] [facility] [facility] Tobacco Use History This section includes a history of the smoking, or tobacco-related health factors, that were collected on or before the date of the Encounter. The data comes from the [place] facility where the Encounter took place. Date/Time Smoking Status/Tobacco Use Comment F acility Aug 26, 2024 02:00 PM VA-TOBACCO QUIT 15 YRS OR MORE [place] [facility] [place] [facility] Aug 14, 2023 01:00 PM VA-TOBACCO FORMER USER [place] [facility] [place] [facility] Aug 14, 2023 01:00 PM VA-TOBACCO QUIT 15 YRS OR MORE [place] [facility] [facility] Aug 22, 2022 03:00 PM VA-TOBACCO FORMER USER [place] [facility] [facility] Aug 22, 2022 03:00 PM VA-TOBACCO QUIT 15 YRS OR MORE [place] [facility] [place] [facility] Mar 20, 2020 03:08 PM VA-TOBACCO FORMER USER [place] [facility] [facility] Mar 20, 2020 03:08 PM VA-TOBACCO QUIT 15 YRS OR MORE [place] [facility] [place] [facility] Nov 16, 2018 10:37 AM VA-TOBACCO FORMER USER [place] [facility] [place] [facility] Nov 16, 2018 10:37 AM [place]-TOBACCO QUIT 15 YRS OR MORE [facility] Encounter Notes: All associated encounter notes This section contains the clinical notes associated to the Encounter. Date/Time Encounter Note(s) Provider Source Nov 20, 2024 12:00 AM NONVA CONSULT: LOCAL TITLE: COMMUNITY CARE-CONSULT RESULT NOTE STANDARD TITLE: NONVA CONSULT DATE OF NOTE: NOV 20, 2024 ENTRY DATE: DEC 05, 2024@12:51:07 AUTHOR: GUILHERME YUN EXP COSIGNER: URGENCY: STATUS: COMPLETED VistA Imaging - Scanned Document SCANNED DOCUMENT SIGNATURE NOT REQUIRED Electronically Filed: 12/05/2024 by: GUILHERME NOEL [facility]
--- OUTSIDE RECORDS SUMMARY | 2024-12-11 22:46 | XMS_ITS | Clinical Summary ---
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
== END ==
LOC: HO.SL 19:30
PROVIDERS: PCP Internal Medicine; Visit Provider Nurse Practitioner Family
DX: I48.92 Unspecified atrial flutter (principal); G20.A1 Parkinson's disease without dyskinesia, without mention of fluctuations; R06.83 Snoring; G47.10 Hypersomnia, unspecified
CPT/HCPCS: 95810

== ENCOUNTER → 2024-12-11 21:57 | Outpatient (BNV) | payer MEDICARE, SELFPAY | PROVIDERS: PCP Internal Medicine; Visit Provider Psychiatry & Neurology Neurology | DX: G47.33 Obstructive sleep apnea (adult) (pediatric) (principal) | CPT/HCPCS: 95810 ==

== ENCOUNTER 2025-02-12 08:27 | Outpatient (AMB) | payer MEDICARE, SELFPAY ==
--- NOTE | 2025-02-12 08:24 | A.OFFVIS_ITS ---
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 Pt is accompanied by his . 02/10/2025, In-lab PSG showed mild obstructive sleep apnea with increased severity in REM sleep, with AHI 12.9 per hour, REM AHI 17 per hour, average SpO2 93% with O2 jonel 81%, and SpO2 under 88% times 3.6 minutes of study time. Snoring was soft at times. Average heart rate 60 beats per minute. Periodic limb movements of sleep 51 per hour with PLMS arousal index 2.9 per hour. Note, that during the sleep study, obstructive sleep apnea were predominantly hypopneas, and occurred while patient was in supine sleep position. Reviewed results of sleep study with patient, he does not think he would be able to tolerate PAP therapy, and is not interested in undergoing a follow-up in-lab PAP titration study to assess tolerance and to identify treatment settings. He states he usually does not sleep on his back, but rather on his side. He does not particularly notice bothersome limb movements of sleep. 12/11/2024, previous HPI: Pt reports he was recently diagnosed w/ a-fib and is s/p cardioversion and he is now on Eliquis. Pt states he does not feel any a-fib s/s. [facility] He also recently had a left inner lower leg basal cell cancer excision by [facility]. Pt has completed the PD research study through the [facility] in [place]. Pt's current PD medication regimen: CD-LD 25-100mg 1 tab qid. Rasagiline 1mg qd. ADL's: Independent, a bit slower. Slow with eating and cutting food. Swallowing: No issues Voice: Can be softer. Doing a program [facility]. Cough: None Drooling: Stable- daytime and nighttime Orthostatic lightheadedness: Has not noticed. Does drink water and Gatorade. Constipation: None Urinary: No issues. Freezing: Rare some brief frozen feet. Stiffness: Not noticing Tremor: Stable Falls: No interval falls. He is stilling try to practice situational awareness . Hallucinations: None Memory: Good Mood: Depressed, frustrated at times with having to think about everything he is doing. Sleep: States he read the recommended book on improving sleep quality, and sense is sleeping better. May talk in his sleep and have dreams- not acting out dreams. Does snore. Sleeps with his mouth open. Does need daytime naps. Tends to be an early riser. Has never had a sleep study. Exercise: Active at home. Typically goes to the gym regularly- but unable right now d/t BCC excision.. Other- The bilateral whole wrist aching pain has resolved. Brief episodes of tingling sensation in random parts of the body- mostly head or extremities- seems to have resolved once his a-fib was dx'd/tx'd. ON LICENSE OF [facility] Medical History (Updated 03/09/25 @ 14:55 by BRIGETTE Ruvalcaba) Afib Atrial flutter Parkinson's disease Pleural plaque due to asbestos exposure Basal cell carcinoma HTN (hypertension) Surgical History S/P skin biopsy History of colon surgery Hx of knee surgery Hx of appendectomy Family History Father Oral cancer Heart attack Mother Stroke Daughter HTN (hypertension) Hypothyroid Sister No problems noted. Sister No problems noted. Sister HTN (hypertension) Social History Household Members: Spouse Are you a primary customer care professional to a significant other at home: No Do you presently have visiting nurse or other home services: No Alcohol intake: current Alcohol intake frequency: holidays/special occasions only Patient Tobacco Use Status: Former Tobacco user Physical Exam Const General: cooperative and no acute distress Resp Effort & Inspection: normal respiratory effort and able to speak in complete sentences Neuro Other: General: A&O x's 3 Expression:? Mild decreased expression and blink, left facial droop- chronic. Voice:? Mild hypophonia Psych:? Pleasant affect Telehealth Telehealth Telehealth Platform: [facility] Location of provider rendering services: practice address Location of patient: address on file Patient Identification confirmed using: Name, : Yes Telehealth method: voice only Patient verbally consented to treatment: Yes Patient verbally consented to billing insurance company: Yes Patient informed of any privacy concerns related to visit: Yes Minutes spent on Phone/Video with Pt.: 20 Assessment & Plan Assessment & Plan (1) Mild obstructive sleep apnea: Code(s): G47.33 - Obstructive sleep apnea (adult) (pediatric) Category: Medical (2) Parkinson's disease without dyskinesia: Code(s): G20.A1 - Parkinson's disease without dyskinesia, without mention of fluctuations Category: Medical Qualifiers: Fluctuating manifestations: without fluctuating manifestations Qualified Code(s): G20.A1 - Parkinson's disease without dyskinesia, without mention of fluctuations (3) Snoring: Code(s): R06.83 - Snoring Category: Medical (4) Hypersomnia, unspecified: Code(s): G47.10 - Hypersomnia, unspecified Category: Medical Plan Reviewed results of recent in-lab PSG study, which was ordered due to patient recently being diagnosed with AFib. Patient advised to start PAP therapy, however patient does not believe he would tolerate PAP therapy. Thus, as patient is OUSMANE is mild, patient advised to continue to sleep on his side, he can use positioning devices and/or elevate the head of the bed if tolerated, to reduce OUSMANE burden. Also discussed referring patient to have ENT consult, however he would like to hold on this for now. In regards to frequent periodic limb movements of sleep, though with minimal associated with arousals, patient is not aware of or bothered by these, thus we will monitor. Likely patient's dopaminergic therapy regimen is reducing his periodic limb movement of sleep symptom burden. Continue Carbidopa-Levodopa 25-100mg QID at 9am, 12pm, 3pm, and 6pm. Continue Rasagaline 1mg qd. When able, resume regular physical activity. Continue to f/u w/ dermatology as scheduled. Future considerations- increasing CD-LD or trying alternate, OT for self feeding. Follow-up as scheduled, or sooner as needed. Coding Level of Care Code Tele Est Pt Level 4 (65405) Diagnoses Mild obstructive sleep apnea G47.33 Parkinson's disease without dyskinesia or fluctuating manifestations G20.A1 Fluctuating manifestations: without fluctuating manifestations Snoring R06.83 Hypersomnia, unspecified G47.10
--- OUTSIDE RECORDS SUMMARY | 2025-02-12 08:39 | XMS_ITS | Continuity of Care Document ---
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 It does not include entries that were removed or entered in error. Problem Status Onset Date Problem Type Date of Resolution Comments Source Parkinson disease Active 7 Condition [facility] [place] [facility] Asbestosis Active Condition [facility] [place] [facility] Atrial fibrillation Active Condition [facility] [place] [facility] Colonic polyp Active Condition [facility] [place] [facility] Diverticulitis of colon Active Condition [facility] [place] [facility] Exposure to potentially hazardous substance Active Condition Nov 16, 2023 Entered By: PERLA PRUITT Comment: original RENETTA Screen completed 08/22/22 [facility] [place] [facility] HTN - Hypertension ([facility] [id number]) [facility] [place] [facility] Long-term current use of anticoagulant Active Condition [facility] (631GE) Diagnosis: ICD-10-CM Z51.81 Encounter for therapeutic drug level monitoring Active Diagnosis [facility] (631GE) Diagnosis: ICD-10-CM 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 [place] [facility] Medications Combined list of outpatient medications from Department [facility] and Veterans Affairs facilities.Medications provided include 1) outpatient medications from the last 15 months, and 2) patient-reported medications. Medication Details Route Status Patient Instructions Prescription Expires Prescription Number Last Dispense Date Ordering Provider Order Date Order Qty Source APIXABAN 5MG TAB TAKE ONE TABLET BY MOUTH EVERY 12 HOURS FOR PREVENTI ON OF BLOOD CLOTS ORAL ACTIVE 08/28/2025 [id number] ALISON CLARK 2023 180 [facility] CARBIDOPA 25MG/LEVODO PA 100MG TAB TAKE 1 TABLET BY MOUTH FOUR TIMES A DAY ORAL ACTIVE 11/07/2025 [id number] 5 MARY ANNE JONES Y 2024 360 [facility] CARBIDOPA 25MG/LEVODO PA 100MG TAB TAKE 1 TABLET BY MOUTH FOUR TIMES A DAY ORAL DISCONT INUED 10/19/2024 [id number] 4 MARY ANNE JONES 2023 360 [facility] EPINEPHRINE (EQV-EPI-PE N) 0.3MG/0.3ML INJECTOR INJECT DIRECTED INTRAMUS CULARLY ONE TIME INTRAM USCULA R ACTIVE 08/27/2025 [id number] [facility] CLARK 20[facility] 2 [facility] RASAGILINE MESYLATE 1MG TAB TAKE ONE TABLET BY MOUTH AT BEDTIME ORAL ACTIVE 11/07/2025 [id number] 5 MARY ANNE JNOES Y 2024 90 [facility] RASAGILINE MESYLATE 1MG TAB TAKE ONE TABLET BY MOUTH AT BEDTIME ORAL DISCONT INUED 10/19/2024 [id number] 4 MARY ANNE JONES Y 2023 90 [facility] VALSARTAN PA-F TAB TAKE DIRECTED BY MOUTH ONCE DAILY ORAL ACTIVE ALISON CLARK 2021 [facility] Allergies, Adverse Reactions, Alerts Combined list of allergies from Department of Defense and Veterans Affairs facilities. It does not include entries that were removed or entered in error. Substance Category Reaction Severity Reaction type Status Date Reported Comments Source BEE VENOM Propensity to adverse reaction (finding) active 9 [facility] TETANUS TOXOID Propensity to adverse reactions to drug (finding) active 9 [facility] Immunizations Combined list of available immunizations from the Department of Defense and [facility] facilities. 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 COVID-19 (MODERNA), MRNA, LNP-S, PF, 50 MCG/0.5 ML (AGES 12+ YEARS) 2022 ZANANIBALTTCHANNING LIZAMA KAMI LEFT DELTO ID [id number] 312 complet ed Booster for Series, [facility] INFLUENZA, HIGH-DOSE, QUADRIVALENT 2022 ZANVETTOR,CHANNING KAMI RIGHT DELTO ID [id number] 197 complet ed [facility] COVID-19 (PFIZER), MRNA, LNP-S, BIVALENT BOOSTER, PF, 30 MCG/0.3 ML DOSE 4 2021 300 complet ed HISTORICA L INFORMATI ON - FROM PATIENT'S RECALL, vets card Lot#: [id number] Mfr: sailsquare, [employer] [facility] INFLUENZA, UNSPECIFIED FORMULATION 2021 88 complet ed [facility] COVID-19 (PFIZER), MRNA, LNP-S, PF, 30 MCG/0.3 ML DOSE 2021 208 complet ed Booster for Series, HISTORICA L INFORMATI ON - FROM PATIENT'S RECALL, vets card Lot#: [id number] Mfr: [employer] [facility] COVID-19 (PFIZER), MRNA, LNP-S, PF, 30 MCG/0.3 ML DOSE 3 2020 208 complet ed HISTORICA L INFORMATI ON - FROM PATIENT'S RECALL, vets card Lot#: [id number] Mfr: [employer] [facility] [place] COVID-19 (PFIZER), MRNA, LNP-S, PF, 30 MCG/0.3 ML DOSE 2 2020 208 complet ed HISTORICA L INFORMATI ON - FROM PATIENT'S RECALL, vets card Lot#: [id number] Mfr: [employer], [employer] [facility] COVID-19 (PFIZER), MRNA, LNP-S, PF, 30 MCG/0.3 ML DOSE 1 2020 208 complet ed HISTORICA L INFORMATI ON - FROM PATIENT'S RECALL, Lot#: [id number] Mfr: [employer], [employer] [facility] [...] Aug 15, 2024 03:53 PM Reporting Lab: [facility] [place] [facility] [address] [facility] [address] Performing Lab: [facility] [place] [facility] [address] [facility] [address] [facility] [place] [facility] CBC ERYTHROCYT ES [#/VOLUME] IN BLOOD BY AUTOMATED COUNT 4.63 10*6/uL 4.23 - 5.66 08/26 Specimen Type: BLOOD No comment entered. Ordering Provider: SYDNEE CLARK Report Released Date/Time: Aug 15, 2024 03:53 PM Reporting Lab: [facility] [place] [facility] [address] [facility] [address] Performing Lab: [facility] [place] [facility] [address] [facility] [address] [facility] [place] [facility] CBC HEMOGLOBIN [MASS/VOLU ME] IN BLOOD 14.4 g/dL 12.8 - 17 08/26 Specimen Type: BLOOD No comment entered. Ordering Provider: SYDNEE CLARK Report Released Date/Time: Aug 15, 2024 03:53 PM Reporting Lab: [facility] [place] [facility] [address] [facility] [address] Performing Lab: [facility] [place] [facility] [address] [facility] [address] [facility] [place] [facility] CBC HEMATOCRIT [VOLUME FRACTION] OF BLOOD BY AUTOMATED COUNT 41.0 39.2 - 50.4 08/26 Specimen Type: BLOOD No comment entered. Ordering Provider: SYDNEE CLARK Report Released Date/Time: Aug 15, 2024 03:53 PM Reporting Lab: [facility] [place] [facility] [address] [facility] [address] Performing Lab: [facility] [place] [facility] [address] [facility] [address] [facility] [place] [facility] CBC MCV [ENTITIC VOLUME] BY AUTOMATED COUNT 88.6 fL 82 - 99 08/26 Specimen Type: BLOOD No comment entered. Ordering Provider: SYDNEE CLARK Report Released Date/Time: Aug 15, 2024 03:53 PM Reporting Lab: [facility] [place] [facility] [address] [facility] [address] Performing Lab: [facility] [place] [facility] [address] [facility] [address] [facility] [place] [facility] CBC MCHC [MASS/VOLU ME] BY AUTOMATED COUNT 35.1 g/dL 30.8 - 35.1 08/26 Specimen Type: BLOOD No comment entered. Ordering Provider: SYDNEE CLARK Report Released Date/Time: Aug 15, 2024 03:53 PM Reporting Lab: [facility] [place] [facility] [address] [facility] [address] Performing Lab: [facility] [place] [facility] [address] [facility] [address] [facility] [place] [facility] CBC PLATELETS [#/VOLUME] IN BLOOD BY AUTOMATED COUNT 153 10*3/uL 140 - 360 08/26 Specimen Type: BLOOD No comment entered. Ordering Provider: SYDNEE CLARK Report Released Date/Time: Aug 15, 2024 03:53 PM Reporting Lab: [facility] [place] [address] [address] Performing Lab: [facility] [place] [address] [address] [facility] [place] [facility] CBC ERYTHROCYT E DISTRIBUTI ON WIDTH [RATIO] BY AUTOMATED COUNT 12.8 12.0 - 16.0 08/26 Specimen Type: BLOOD No comment entered. Ordering Provider: SYDNEE CLARK Report Released Date/Time: Aug 15, 2024 03:53 PM Reporting Lab: [facility] [place] [address] [address] Performing Lab: [facility] [place] [facility] [address] [facility] [address] [facility] [place] [facility] CBC MCH [ENTITIC MASS] BY AUTOMATED COUNT 31.1 pg 26.2 - 32.6 08/26 Specimen Type: BLOOD No comment entered. Ordering Provider: SYDNEE CLARK Report Released Date/Time: Aug 15, 2024 03:53 PM Reporting Lab: [facility] [place] [address] [address] Performing Lab: [facility] [address] [address] [facility] BASIC METABOLIC PANEL (non-fast ing) UREA NITROGEN [MASS/VOLU ME] IN SERUM OR PLASMA 22 mg/dL 7 - 25 08/26 Specimen Type: SERUM No comment entered. Ordering Provider: SYDNEE CLARK Report Released Date/Time: Aug 15, 2024 03:53 PM Reporting Lab: [facility] [address] [address] Performing Lab: [facility] [address] [address] [facility] BASIC METABOLIC PANEL (non-fast ing) GLUCOSE [MASS/VOLU ME] IN SERUM OR PLASMA 91 mg/dL 65 - 100 08/26 Specimen Type: SERUM No comment entered. Ordering Provider: SYDNEE CLARK Report Released Date/Time: Aug 15, 2024 03:53 PM Reporting Lab: [address] [address] Performing Lab: [address] [address] [facility] BASIC METABOLIC PANEL (non-fast ing) SODIUM [MOLES/VOL UME] IN SERUM OR PLASMA 137 mmol/L 135 - 145 08/26 Specimen Type: SERUM No comment entered. Ordering Provider: SYDNEE CLARK Report Released Date/Time: Aug 15, 2024 03:53 PM Reporting Lab: [facility] [address] [address] Performing Lab: [address] [address] [facility] BASIC METABOLIC PANEL (non-fast ing) POTASSIUM [MOLES/VOL UME] IN SERUM OR PLASMA 4.0 mmol/L 3.5 - 5.0 08/26 Specimen Type: SERUM No comment entered. Ordering Provider: SYDNEE CLARK Report Released Date/Time: Aug 15, 2024 03:53 PM Reporting Lab: [facility] [place] [facility] [address] [facility] [address] Performing Lab: [facility] [place] [facility] [address] [facility] [address] [facility] [place] [facility] BASIC METABOLIC PANEL (non-fast ing) CHLORIDE [MOLES/VOL UME] IN SERUM OR PLASMA 104 mmol/L 100 - 110 08/26 Specimen Type: SERUM No comment entered. Ordering Provider: SYDNEE CLARK Report Released Date/Time: Aug 15, 2024 03:53 PM Reporting Lab: [facility] [place] [facility] [address] [facility] [address] Performing Lab: [facility] [address] [facility] [address] [facility]TRN [facility] BASIC METABOLIC PANEL (non-fast ing) CARBON DIOXIDE, TOTAL [MOLES/VOL UME] IN SERUM OR PLASMA 22 meq/L 20 - 30 08/26 Specimen Type: SERUM No comment entered. Ordering Provider: SYDNEE CLARK Report Released Date/Time: Aug 15, 2024 03:53 PM Reporting Lab: [facility] [address] [facility] [address] Performing Lab: [facility] [address] [facility] TRN [facility] BASIC METABOLIC PANEL (non-fast ing) CREATININE [MASS/VOLU ME] IN SERUM OR PLASMA 0.84 mg/dL 0.50 - 1.40 08/26 Specimen Type: SERUM No comment entered. Ordering Provider: SYDNEE CLARK Report Released Date/Time: Aug 15, 2024 03:53 PM Reporting Lab: [facility] [place] [address] [address] Performing Lab: [facility] [address] [address] [facility] BASIC METABOLIC PANEL (non-fast ing) GLOMERULAR FILTRATION RATE/1.73 SQ M.PREDICTE D [VOLUME RATE/AREA] IN SERUM, PLASMA OR BLOOD BY CREATININE -BASED FORMULA (CKD-EPI 2020) >90mL/m in 60 08/26 Specimen Type: SERUM No comment entered. Ordering Provider: SYDNEE CLARK Report Released Date/Time: Aug 15, 2024 03:53 PM Reporting Lab: [facility] [place] [address] [address] Performing Lab: [facility] [place] [place] [address] [address] [facility] [place] [facility] LIPID PANEL, NON FASTING CHOLESTERO L [MASS/VOLU ME] IN SERUM OR PLASMA 209 mg/dL 08/26 H Specimen Type: SERUM No comment entered. Ordering Provider: SYDNEE CLARK Report Released Date/Time: Aug 15, 2024 03:53 PM Reporting Lab: [facility] [place] [address] [address] Performing Lab: [facility] [place] [address] [address] [facility] LIPID PANEL, NON FASTING TRIGLYCERI DE [MASS/VOLU ME] IN SERUM OR PLASMA 301 mg/dL 0 - 150 08/26 H Specimen Type: SERUM No comment entered. Ordering Provider: SYDNEE CLARK Report Released Date/Time: Aug 15, 2024 03:53 PM Reporting Lab: [facility] [place] [address] [address] Performing Lab: [facility] [place] [place] [address] [address] [facility] [place] [facility] LIPID PANEL, NON FASTING CHOLESTERO L IN LDL [MASS/VOLU ME] IN SERUM OR PLASMA BY CALCULATIO N Reflex to dLDLmg/ dL 0 - 129 08/26 Specimen Type: SERUM No comment entered. Ordering Provider: SYDNEE CLARK Report Released Date/Time: Aug 15, 2024 03:53 PM Reporting Lab: [facility] [place] [place] [facility] [address] [facility] [address] Performing Lab: [facility] [place] [facility] [address] [facility] [address] [facility] [place] [facility] LIPID PANEL, NON FASTING CHOLESTERO L.TOTAL/CH OLESTEROL IN HDL [MASS RATIO] IN SERUM OR PLASMA 4.5 08/26 Specimen Type: SERUM No comment entered. Ordering Provider: SYDNEE CLARK Report Released Date/Time: Aug 15, 2024 03:53 PM Reporting Lab: [facility] [place] [place] [facility] [address] [facility] [address] Performing Lab: [facility] [place] [facility] [address] [facility] [address] [facility] [place] [facility] LIPID PANEL, NON FASTING CHOLESTERO L IN HDL [MASS/VOLU ME] IN SERUM OR PLASMA 46 mg/dL 40 - 60 08/26 Specimen Type: SERUM No comment entered. Ordering Provider: SYDNEE CLARK Report Released Date/Time: Aug 15, 2024 03:53 PM Reporting Lab: [facility] [place] [place] [facility] [address] [facility] [address] Performing Lab: [facility] [place] [facility] [address] [facility] [address] [facility] [place] [facility] LIPID PANEL, NON FASTING CHOLESTERO L IN LDL [MASS/VOLU ME] IN SERUM OR PLASMA BY DIRECT ASSAY 124 mg/dL 08/26 H Specimen Type: SERUM No comment entered. Ordering Provider: SYDNEE CLARK Report Released Date/Time: Aug 15, 2024 03:53 PM Reporting Lab: [facility] [place] [facility] [address] [facility] [address] Performing Lab: [facility] [place] [facility] [address] [facility] [address] [facility] [place] [facility] LIVER FUNCTION PROTEIN [MASS/VOLU ME] IN SERUM OR PLASMA 7.6 g/dL 6.0 - 8.3 08/26 Specimen Type: SERUM No comment entered. Ordering Provider: SYDNEE CLARK Report Released Date/Time: Aug 15, 2024 03:53 PM Reporting Lab: [facility] [place] [place] [facility] [address] [facility] [address] Performing Lab: [facility] [place] [place] [facility] [address] [facility] [address] [facility] [place] [facility] LIVER FUNCTION ALBUMIN [MASS/VOLU ME] IN SERUM OR PLASMA 4.1 g/dL 3.5 - 5.0 08/26 Specimen Type: SERUM No comment entered. Ordering Provider: SYDNEE CLARK Report Released Date/Time: Aug 15, 2024 03:53 PM Reporting Lab: [facility] [place] [facility] [address] [facility] [address] Performing Lab: [facility] [place] [place] [address] [address] [facility] [place] [facility] LIVER FUNCTION ALKALINE PHOSPHATAS E [ENZYMATIC ACTIVITY/V OLUME] IN SERUM OR PLASMA 54 U/L 40 - 150 08/26 Specimen Type: SERUM No comment entered. Ordering Provider: SYDNEE CLARK Report Released Date/Time: Aug 15, 2024 03:53 PM Reporting Lab: [facility] [place] [facility] [address] [facility] [address] Performing Lab: [facility] [place] [facility] [address] [facility] [address] [facility] [place] [facility] LIVER FUNCTION ASPARTATE AMINOTRANS FERASE [ENZYMATIC ACTIVITY/V OLUME] IN SERUM OR PLASMA 25 U/L 5 - 34 08/26 Specimen Type: SERUM No comment entered. Ordering Provider: SYDNEE CLARK Report Released Date/Time: Aug 15, 2024 03:53 PM Reporting Lab: [facility] [place] [facility] [address] [facility] [address] Performing Lab: [facility] [place] [facility] [address] [facility] [address] [facility] [place] [facility] LIVER FUNCTION ALANINE AMINOTRANS FERASE [ENZYMATIC ACTIVITY/V OLUME] IN SERUM OR PLASMA 6 U/L 08/26 Specimen Type: SERUM No comment entered. Ordering Provider: SYDNEE CLARK Report Released Date/Time: Aug 15, 2024 03:53 PM Reporting Lab: [facility] [place] [facility] [address] [facility] [address] Performing Lab: [facility] [place] [facility] [address] [facility] [address] [facility] [place] [facility] LIVER FUNCTION BILIRUBIN. TOTAL [MASS/VOLU ME] IN SERUM OR PLASMA 0.8 mg/dL 0.2 - 1.2 08/26 Specimen Type: SERUM No comment entered. Ordering Provider: SYDNEE CLARK Report Released Date/Time: Aug 15, 2024 03:53 PM Reporting Lab: [facility] [address] [address] Performing Lab: [facility] [place] [address] [address] [facility] WSN [facility] PT & INR (COUMADIN ) INR IN PLATELET POOR PLASMA BY COAGULATIO N ASSAY 1.5 08/26 Specimen Type: PLASMA No comment entered. Ordering Provider: SYDNEE CLARK Report Released Date/Time: Aug 26, 2024 02:15 PM Reporting Lab: [facility] [place] [address] [address] Performing Lab: [facility] [place] [address] [address] [facility] [place] [facility] PT & INR (COUMADIN ) PROTHROMBI N TIME (PT) 16.1 s 10.0 - 13.1 08/26 H Specimen Type: PLASMA No comment entered. Ordering Provider: SYDNEE CLARK Report Released Date/Time: Aug 26, 2024 02:15 PM Reporting Lab: [facility] [place] [address] [address] Performing Lab: [facility] [place] [facility] [address] [facility] [address] [facility] [place] [facility] CBC LEUKOCYTES [#/VOLUME] IN BLOOD BY AUTOMATED COUNT 5.84 10*3/uL 4.50 - 11.00 02/07 Specimen Type: BLOOD No comment entered. Ordering Provider: SYDNEE CLARK Report Released Date/Time: Feb 02, 2024 10:46 AM Reporting Lab: [facility] [place] [facility] [address] [facility] [address] Performing Lab: [facility] [place] [facility] [address] [facility] [address] [facility] [place] [facility] CBC ERYTHROCYT ES [#/VOLUME] IN BLOOD BY AUTOMATED COUNT 4.62 10*6/uL 4.23 - 5.66 02/07 Specimen Type: BLOOD No comment entered. Ordering Provider: SYDNEE CLARK Report Released Date/Time: Feb 02, 2024 10:46 AM Reporting Lab: [facility] [place] [facility] [address] [facility] [address] Performing Lab: [facility] [place] [facility] [address] [facility] [address] [facility] [place] [facility] CBC HEMOGLOBIN [MASS/VOLU ME] IN BLOOD 14.3 g/dL 12.8 - 17 02/07 Specimen Type: BLOOD No comment entered. Ordering Provider: SYDNEE CLARK Report Released Date/Time: Feb 02, 2024 10:46 AM Reporting Lab: [facility] [place] [facility] [address] [facility] [address] Performing Lab: [facility] [place] [facility] [address] [facility] [address] [facility] [place] [facility] CBC HEMATOCRIT [VOLUME FRACTION] OF BLOOD BY AUTOMATED COUNT 40.9 39.2 - 50.4 02/07 Specimen Type: BLOOD No comment entered. Ordering Provider: SYDNEE CLARK Report Released Date/Time: Feb 02, 2024 10:46 AM Reporting Lab: [facility] [place] [facility] [address] [facility] [address] Performing Lab: [facility] [place] [facility] [address] [facility] [address] [facility] [place] [facility] CBC MCV [ENTITIC VOLUME] BY AUTOMATED COUNT 88.5 fL 82 - 99 02/07 Specimen Type: BLOOD No comment entered. Ordering Provider: SYDNEE CLARK Report Released Date/Time: Feb 02, 2024 10:46 AM Reporting Lab: [facility] [place] [facility] [address] [facility] [address] Performing Lab: [facility] [address] [facility] [address] [facility] [place] [facility] CBC MCHC [MASS/VOLU ME] BY AUTOMATED COUNT 35.0 g/dL 30.8 - 35.1 02/07 Specimen Type: BLOOD No comment entered. Ordering Provider: SYDNEE CLARK Report Released Date/Time: Feb 02, 2024 10:46 AM Reporting Lab: [facility] [place] [facility] [address] [facility] [address] Performing Lab: [facility] [place] [facility] [address] [facility] [address] [facility] [place] [facility] CBC PLATELETS [#/VOLUME] IN BLOOD BY AUTOMATED COUNT 162 10*3/uL 140 - 360 02/07 Specimen Type: BLOOD No comment entered. Ordering Provider: SYDNEE CLARK Report Released Date/Time: Feb 02, 2024 10:46 AM Reporting Lab: [facility] [place] [facility] [address] [facility] [address] Performing Lab: [facility] [address] [facility] [address] [facility] [place] [facility] CBC ERYTHROCYT E DISTRIBUTI ON WIDTH [RATIO] BY AUTOMATED COUNT 12.4 12.0 - 16.0 02/07 Specimen Type: BLOOD No comment entered. Ordering Provider: SYDNEE CLARK Report Released Date/Time: Feb 02, 2024 10:46 AM Reporting Lab: [facility] [place] [facility] [address] [facility] [address] Performing Lab: [facility] [place] [facility] [address] [facility] [address] [facility] [place] [facility] CBC MCH [ENTITIC MASS] BY AUTOMATED COUNT 31.0 pg 26.2 - 32.6 02/07 Specimen Type: BLOOD No comment entered. Ordering Provider: SYDNEE CLARK Report Released Date/Time: Feb 02, 2024 10:46 AM Reporting Lab: [facility] [place] [facility] [address] [facility] [address] Performing Lab: [facility] [place] [facility] [address] [facility] [address] [facility] [place] [facility] BASIC METABOLIC PANEL (non-fast ing) UREA NITROGEN [MASS/VOLU ME] IN SERUM OR PLASMA 23 mg/dL 7 - 25 02/07 Specimen Type: SERUM No comment entered. Ordering Provider: SYDNEE CLARK Report Released Date/Time: Feb 02, 2024 10:46 AM Reporting Lab: [facility] [place] [facility] [address] [facility] [address] Performing Lab: [facility] [place] [facility] [address] [facility] [address] [facility] [place] [facility] BASIC METABOLIC PANEL (non-fast ing) GLUCOSE [MASS/VOLU ME] IN SERUM OR PLASMA 112 mg/dL 65 - 100 02/07 H Specimen Type: SERUM No comment entered. Ordering Provider: SYDNEE CLARK Report Released Date/Time: Feb 02, 2024 10:46 AM Reporting Lab: [facility] [place] [facility] [address] [facility] [address] Performing Lab: [facility] [place] [facility] [address] [facility] [address] [facility] [place] [facility] BASIC METABOLIC PANEL (non-fast ing) SODIUM [MOLES/VOL UME] IN SERUM OR PLASMA 137 mmol/L 135 - 145 02/07 Specimen Type: SERUM No comment entered. Ordering Provider: SYDNEE CLARK Report Released Date/Time: Feb 02, 2024 10:46 AM Reporting Lab: [facility] [place] [address] [address] Performing Lab: [facility] [address] [facility] BASIC METABOLIC PANEL (non-fast ing) POTASSIUM [MOLES/VOL UME] IN SERUM OR PLASMA 3.9 mmol/L 3.5 - 5.0 02/07 Specimen Type: SERUM No comment entered. Ordering Provider: SYDNEE CLARK Report Released Date/Time: Feb 02, 2024 10:46 AM Reporting Lab: [facility] [address] Performing Lab: [facility] [address] [address] [facility] BASIC METABOLIC PANEL (non-fast ing) CHLORIDE [MOLES/VOL UME] IN SERUM OR PLASMA 100 mmol/L 100 - 110 02/07 Specimen Type: SERUM No comment entered. Ordering Provider: SYDNEE CLARK Report Released Date/Time: Feb 02, 2024 10:46 AM Reporting Lab: [facility] [address] [address] Performing Lab: [facility] [address] [address] [facility] BASIC METABOLIC PANEL (non-fast ing) CARBON DIOXIDE, TOTAL [MOLES/VOL UME] IN SERUM OR PLASMA 27 meq/L 20 - 30 02/07 Specimen Type: SERUM No comment entered. Ordering Provider: SYDNEE CLARK Report Released Date/Time: Feb 02, 2024 10:46 AM Reporting Lab: [facility] [address] [address] Performing Lab: [facility] [place] [address] [place] [address] [facility] BASIC METABOLIC PANEL (non-fast ing) CREATININE [MASS/VOLU ME] IN SERUM OR PLASMA 1.01 mg/dL 0.50 - 1.40 02/07 Specimen Type: SERUM No comment entered. Ordering Provider: SYDNEE CLARK Report Released Date/Time: Feb 02, 2024 10:46 AM Reporting Lab: [facility] [address] [address] Performing Lab: [facility] [address] [address] [facility] BASIC METABOLIC PANEL (non-fast ing) GLOMERULAR FILTRATION RATE/1.73 SQ M.PREDICTE D [VOLUME RATE/AREA] IN SERUM, PLASMA OR BLOOD BY CREATININE -BASED FORMULA (CKD-EPI 2020) 79 mL/min 60 02/07 Specimen Type: SERUM No comment entered. Ordering Provider: SYDNEE CLARK Report Released Date/Time: Feb 02, 2024 10:46 AM Reporting Lab: [address] [address] Performing Lab: [address] [address] [facility] LIPID PANEL, NON FASTING CHOLESTERO L [MASS/VOLU ME] IN SERUM OR PLASMA 161 mg/dL 02/07 Specimen Type: SERUM No comment entered. Ordering Provider: SYDNEE CLARK Report Released Date/Time: Feb 02, 2024 10:46 AM Reporting Lab: [address] [address] Performing Lab: [address] [address] [facility] LIPID PANEL, NON FASTING TRIGLYCERI DE [MASS/VOLU ME] IN SERUM OR PLASMA 102 mg/dL 0 - 150 02/07 Specimen Type: SERUM No comment entered. Ordering Provider: SYDNEE CLARK Report Released Date/Time: Feb 02, 2024 10:46 AM Reporting Lab: [facility] [place] [facility] [address] [facility] [address] Performing Lab: [facility] [place] [facility] [address] [facility] [address] [facility] [place] [facility] LIPID PANEL, NON FASTING CHOLESTERO L IN LDL [MASS/VOLU ME] IN SERUM OR PLASMA BY CALCULATIO N 101 mg/dL 0 - 129 02/07 Specimen Type: SERUM No comment entered. Ordering Provider: SYDNEE CLARK Report Released Date/Time: Feb 02, 2024 10:46 AM Reporting Lab: [facility] [place] [facility] [address] [facility] [address] Performing Lab: [facility] [place] [address] [address] [facility] [place] [facility] LIPID PANEL, NON FASTING CHOLESTERO L.TOTAL/CH OLESTEROL IN HDL [MASS RATIO] IN SERUM OR PLASMA 4.0 02/07 Specimen Type: SERUM No comment entered. Ordering Provider: SYDNEE CLARK Report Released Date/Time: Feb 02, 2024 10:46 AM Reporting Lab: [facility] [place] [facility] [address] [facility] [address] Performing Lab: [facility] [place] [facility] [address] [facility] [address] [facility] [place] [facility] LIPID PANEL, NON FASTING CHOLESTERO L IN HDL [MASS/VOLU ME] IN SERUM OR PLASMA 40 mg/dL 40 - 60 02/07 Specimen Type: SERUM No comment entered. Ordering Provider: SYDNEE CLARK Report Released Date/Time: Feb 02, 2024 10:46 AM Reporting Lab: [facility] [place] [facility] [address] [facility] [address] Performing Lab: [facility] [place] [facility] [address] [facility] [address] [facility] [place] [facility] LIVER FUNCTION PROTEIN [MASS/VOLU ME] IN SERUM OR PLASMA 7.2 g/dL 6.0 - 8.3 02/07 Specimen Type: SERUM No comment entered. Ordering Provider: SYDNEE CLARK Report Released Date/Time: Feb 02, 2024 10:46 AM Reporting Lab: [facility] [place] [facility] [address] [facility] [address] Performing Lab: [facility] [place] [facility] [address] [facility] [address] [facility] [place] [facility] LIVER FUNCTION ALBUMIN [MASS/VOLU ME] IN SERUM OR PLASMA 4.0 g/dL 3.5 - 5.0 02/07 Specimen Type: SERUM No comment entered. Ordering Provider: SYDNEE CLARK Report Released Date/Time: Feb 02, 2024 10:46 AM Reporting Lab: [facility] [place] [address] [address] Performing Lab: [facility] [place] [facility] [address] [facility] [address] [facility] [place] [facility] LIVER FUNCTION ALKALINE PHOSPHATAS E [ENZYMATIC ACTIVITY/V OLUME] IN SERUM OR PLASMA 60 U/L 40 - 150 02/07 Specimen Type: SERUM No comment entered. Ordering Provider: SYDNEE CLARK Report Released Date/Time: Feb 02, 2024 10:46 AM Reporting Lab: [facility] [place] [address] [address] Performing Lab: [facility] [place] [facility] [address] [facility] [address] [facility] [place] [facility] LIVER FUNCTION ASPARTATE AMINOTRANS FERASE [ENZYMATIC ACTIVITY/V OLUME] IN SERUM OR PLASMA 26 U/L 5 - 34 02/07 Specimen Type: SERUM No comment entered. Ordering Provider: SYDNEE CLARK Report Released Date/Time: Feb 02, 2024 10:46 AM Reporting Lab: [facility] [place] [address] [address] Performing Lab: [facility] [place] [facility] [address] [facility] [address] [facility] [place] [facility] LIVER FUNCTION ALANINE AMINOTRANS FERASE [ENZYMATIC ACTIVITY/V OLUME] IN SERUM OR PLASMA 7 U/L 02/07 Specimen Type: SERUM No comment entered. Ordering Provider: SYDNEE CLARK Report Released Date/Time: Feb 02, 2024 10:46 AM Reporting Lab: [facility] [place] [facility] [address] [facility] [address] Performing Lab: [facility] [place] [facility] [address] [facility] [address] [facility] [place] [facility] LIVER FUNCTION BILIRUBIN. TOTAL [MASS/VOLU ME] IN SERUM OR PLASMA 1.1 mg/dL 0.2 - 1.2 02/07 Specimen Type: SERUM No comment entered. Ordering Provider: SYDNEE CLARK Report Released Date/Time: Feb 02, 2024 10:46 AM Reporting Lab: [facility] [place] [facility] [address] [facility] [address] Performing Lab: [facility] [place] [facility] [address] [facility] [address] [facility] [place] [facility] THYROID T4 FREE(FT4) THYROXINE (T4) FREE [MASS/VOLU ME] IN SERUM OR PLASMA 0.96 ng/dL 0.6 - 1.6 08/14 Specimen Type: SERUM No comment entered. Ordering Provider: SYDNEE CLARK Report Released Date/Time: Aug 03, 2023 08:54 AM Reporting Lab: [facility] [place] [facility] [address] [facility] [address] Performing Lab: [facility] [place] [facility] [address] [facility] [address] [facility] [place] [facility] Vital Signs Combined list of inpatient and outpatient Vital Signs from Department of Defense and Veterans Affairs, ranging from 12 months to all on record, depending upon the facility. Vital Sign Value Date Comments Source SYSTOLIC BLOOD PRESSURE 140 08/26/20 24 13:47:04 [facility] [place] [facility] DIASTOLIC BLOOD PRESSURE 87 08/26/ 024 13:47:04 [facility] [place] [facility] PULSE OXIMETRY 97 08/26/2024 13:47:04 [facility] [place] [id number] 10/19 [facility] [place] En[facility] [id number] 12/14 [facility] [place] En[facility] [id number] 12/21 [facility] [place] En[facility] [id number] 02/08 [facility] En[facility] [id number] 02/08 [facility] OFFICE O/P EST LOW 20 MIN [id number] Diagnos is: ICD-10- CM I10 Essenti al (primar y) hyperte nsDylan Sharp 02/14 [facility] En[facility] [id number] 03/26 [facility] [place] En[facility] [id number] 06/11 [facility] [place] En[facility] [id number] 06/11 [facility] [place] En[facility] [id number] 06/12 [facility] [place] En[facility] [id number] 06/12 [facility] En[facility] [id number] 06/18 [facility] [place] En[facility] [id number] 08/09 [facility] [place] En[facility] [id number] 08/26 [facility] [place] [place] [facility] OFFICE O/P EST MOD 30 MIN [id number] Diagnos is: ICD-10- CM I48.91 Unspeci fied atrial fibrill ation Dylan CLARK 08/26 [facility] [place] [facility] (631GE) MTMS BY PHARM EST 15 MIN [id number] Diagnos is: ICD-10- CM 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 PILAR,ALB ERT EDUARD 08/27 [facility] (831GE) [facility] (631GE) MTMS BY PHARM EST 15 MIN [id number] Diagnos is: ICD-10- CM Z51.81 [facility] monitor NELLA Sen ISBRIAN Abraham 09/24 [facility] (631GE) [facility] [place] [facility] Outpatient Encounter [id number] 01/22 /2025 [facility] [place] [facility] [place] [facility] Outpatient Encounter [id number] 11/01 [facility] [place] [place] [facility] Outpatient Encounter [id number] 11/20 [facility] [place] [place] [facility] Outpatient Encounter [id number] 11/27 [facility] [place] [facility] Social History Combined list of available smoking, tobacco, and other social history from Department of Defense and Veterans Affairs facilities. Social History Type Response Date Comment Sour e Tobacco smoking status NHIS VA-TOBACCO FORMER USER 08/26/2024 [facility] [place] [facility] History of tobacco use VA-TOBACCO QUIT 15 YRS OR MORE 08/26/2024 [facility] [place] [facility] History of tobacco use VA-TOBACCO QUIT 15 YRS OR MORE 08/14/2023 [facility] [place] [facility] History of tobacco use VA-TOBACCO FORMER USER 08/22/2022 [facility] [place] [facility] History of tobacco use VA-TOBACCO QUIT 15 YRS OR MORE 03/20/2020 [facility] [place] [facility] History of tobacco use VA-TOBACCO FORMER USER 11/16/2018 [facility] [place] [facility] Plan of Care List of future care activities from Department of Veterans Affairs facilities. Additional future care activities may be listed in the Assessment and Plan section. Date/Time Care Activity Care Activity Detail Facili ty 02/26/2025 AMBULATORY - MEDICINE AMBULATORY - MEDICI [place] [facility] [place] [facility]
--- OUTSIDE RECORDS SUMMARY | 2025-02-12 08:39 | XMS_ITS ---
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 (WNR) MEDICARE ADVANTAGE [facility] (WNR) Oct 09, 2020 [id number] ANTHONYUMM Chamberlain PATIENT [facility] (WNR) MEDICARE ADVANTAGE [facility] (WNR) Apr 08, 2018 [id number] [phone] ANTHONYUMM PATIENT Selected Encounter This section includes the information on record at [place] for the Encounter. Date/Time Encounter Type Encounter Description Reason Provider Source Aug 26, 2024 02:00 PM OFFICE O/P EST MOD 30 MIN PRIMARY CARE/MEDICINE ICD-10-CM I48.91 Unspecified atrial fibrillation VEGA POPE Encounter Template Text not used by [place] Assessments - Encounter Diagnoses This section includes the primary and secondary diagnoses documented for the Encounter. Date/Time Primary/Secondary Diagnosis Diagnosis Name Provider Source Aug 27, 2024 12:13 PM PRIMARY Unspecified atrial fibrillation VEGA POPE [facility] Aug 27, 2024 12:13 PM SECONDARY Essential (primary) hypertension VEGA POPE [facility] Aug 27, 2024 12:13 PM SECONDARY intermediate (current) use of anticoagulants VEGA POPE [facility] Plan of Treatment: Future Appointments (+ 6 months) and Future Tests (+/- 45 days) The Plan of Treatment section includes future care activities for the patient [facility] This section includes future appointments and future orders which are active, pending or scheduled. Future Appointments This section includes appointments that were scheduled to occur 6 months from the date of the Encounter, up to a maximum of 20 appointments. The data comes from all [place] treatment facilities. Appointment Date/Time Appointment Type Appointme nt Facility Name Nov 20, 2024 07:45 AM AMBULATORY - MEDICINE [facility] Nov 27, 2024 11:30 AM AMBULATORY MEDICINE [facility] Lab Results: +/- 30 days of the encounter This section includes the Chemistry and Hematology Lab Results on record with [place] for the patient. Radiology Reports and Pathology Reports are provided separately, in subsequent sections. Lab Results This section contains the Chemistry/Hematology Results that were resulted 30 days before or 30 daysafter the date of the Encounter. Date/Time Source Result Type Result - Unit Interpretation Reference Range Specimen Type Comment Aug 26, 2024 02:35 PM [facility] CBC BLOOD Specimen Type: BLOOD No comment entered. Ordering Provider: BRAN POPE Report Released Date/Time: Aug 15, 2024 03:53 PM Reporting Lab: [address] [address] Performing Lab: [address] [address] WBC 7.30 10*3/uL 4.50-11.00 RBC 4.63 10*6/uL 4.23-5.66 HGB 14.4 g/dL 12.8-17 HCT 41.0 39.2-50.4 MCV 88.6 fL 82-99 MCHC 35.1 g/dL 30.8-35.1 PLT 153 10*3/uL 140-360 RDW-CV 12.8 12.0-16.0 MCH 31.1 pg 26.2-32.6 Aug 26, 2024 02:35 PM [facility] BASIC METABOLIC PANEL (non-fasting) SERUM Spe cimen Type: SERUM No comment entered. Ordering Provider: BRAN POPE Report Released Date/Time: Aug 15, 2024 03:53 PM Reporting Lab: [address] [address] Performing Lab: [address] [address] UREA NITROGEN 22 mg/dL 7-25 GLUCOSE 91 mg/dL 65-100 SODIUM 137 mmol/L 135-145 POTASSIUM 4.0 mmol/L 3.5-5.0 CHLORIDE 104 mmol/L 100-110 CO2 22 meq/L 20-30 CREATININE, Serum 0.84 mg/dL 0.50-1.40 eGFR(CKD-EPI 2020) >90 mL/min >60 Aug 26, 2024 02:35 PM [facility] LIPID PANEL, NON FASTING SERUM Specimen Type: SERUM No comment entered. Ordering Provider: BRAN POPE Report Released Date/Time: Aug 15, 2024 03:53 PM Reporting Lab: [address] [address] Performing Lab: [address] [address] CHOLESTEROL 209 mg/dL H TRIGLYCERIDE 301 mg/dL H 0-150 LDL calculated Reflex to dLDL mg/dL 0-12 9 CHOL/HDL 4.5 HDL CHOLESTEROL 46 mg/dL 40-60 LDL DIRECT 124 mg/dL H Aug 26, 2024 02:35 PM [facility] LIVER FUNCTION SERUM Specimen Type: SERUM No comment entered. Ordering Provider: BRAN POPE Report Released Date/Time: Aug 15, 2024 03:53 PM Reporting Lab: [facility] [address] [facility] [address] Performing Lab: [facility] [address] [facility] [address] PROTEIN,TOTAL 7.6 g/dL 6.0-8.3 ALBUMIN 4.1 g/dL 3.5-5.0 ALKALINE PHOSPHATASE 54 U/L 40-150 AST 25 U/L 5-34 ALT 6 U/L BILIRUBIN, TOTAL 0.8 mg/dL 0.2-1.2 Aug 26, 2024 02:35 PM [facility] PT & INR (COUMADIN) PLASMA Specimen Type: PLAS MA No comment entered. Ordering Provider: BRAN POPE Report Released Date/Time: Aug 26, 2024 02:15 PM Reporting Lab: [address] [address] Performing Lab: [address] [address] INR 1.5 PROTIME 16.1 s H 10.0-13.1 Vital Signs: All taken on the encounter date This section contains inpatient and outpatient Vital Signs collected on the date of the Encounter. Date/Time Temperature Pulse Blood Pressure Respiratory Rate SP02 Pain Height Weight Body Mass Index Source Aug 26, 2024 02:24 PM 134/78 [facility] Aug 26, 2024 01:47 PM 97.5 81 140/87 20 97 5 70 189 27 [facility] Social History: Smoking Status (Most current) and Tobacco Use (All prior to encounter date) This section includes the most current, and the historical, smoking and tobacco- related health factors from the [place] facility where the Encounter took place. Current Smoking Status This section includes the most current smoking, or tobacco-related health factor, from the [place] facility where the Encounter took place. Date/Time Current Smoking Status Comment Keven orozco Aug 26, 2024 02:00 PM VA-TOBACCO FORMER USER [facility] Tobacco Use History This section includes a history of the smoking, or tobacco-related health factors, that were collected on or before the date of the Encounter. The data comes from the [place] facility where the Encounter took place. Date/Time Smoking Status/Tobacco Use Comment F acility Aug 26, 2024 02:00 PM VA-TOBACCO QUIT 15 YRS OR MORE [place] [facility] [place] [facility] Aug 14, 2023 01:00 PM VA-TOBACCO FORMER USER [facility] [place] [facility] Aug 14, 2023 01:00 PM VA-TOBACCO QUIT 15 YRS OR MORE [facility] [place] [facility] Aug 22, 2022 03:00 PM VA-TOBACCO FORMER USER [facility] [place] [facility] Aug 22, 2022 03:00 PM VA-TOBACCO QUIT 15 YRS OR MORE [facility] [place] [facility] Mar 20, 2020 03:08 PM VA-TOBACCO FORMER USER [facility] [place] [facility] Mar 20, 2020 03:08 PM VA-TOBACCO QUIT 15 YRS OR MORE [facility] [place] [facility] Nov 16, 2018 10:37 AM VA-TOBACCO FORMER USER [facility] [place] [facility] Nov 16, 2018 10:37 AM VA-TOBACCO QUIT 15 YRS OR MORE [facility] [place] [facility] Encounter Notes: All associated encounter notes This [...] 13:47)BMI: 27.2189 lb [85.73 kg] (08/26/2024 13:47) [place] is alert and oriented X3 Neck: supple [...] due next year 4. Parkinson disease - [facility] [place], Dr Hart 5. HTN - Hypertension - [id number] Review of medial record = 5mins Time [...] independent of and without assistance from this DE. HTN Assess for Elevated BP>=140/90: Repeat blood [...] of active outpatient prescriptions dispensed from this [place] (local) and dispensed from another [place] or [facility] facility (remote) as well as inpatient orders [...] or non-VA provider. /oscar/ Bran Pope DNP, DISINTEGRATOR-BC, CNL Primary Care Nurse Practitioner Signed: 08/26/2024 14:25 BRAN POPE [facility] Aug 26, 2024 02:03 PM PREVENTIVE [...] this can be accurately recorded in their [place] medical record. /oscar/ Ramon Almendarez, Health Research Agricultural Engineer BINDING FOLDER MACHINE,PRIMARY CARE Signed: 08/26/2024 14:05 RAMON ALMENDAREZ [facility] [place] [facility] Aug 26, 2024 01:50 PM PREVENTIVE MEDICINE NURSING NOTE: LOCAL TITLE: CLINICAL REMINDERS/NURSING STANDARD TITLE: PREVENTIVE MEDICINE NURSING NOTE DATE OF NOTE: AUG 26, 2024@13:50 ENTRY DATE: AUG 26, 2024@13:50:56 AUTHOR: RAMON ALMENDAREZER: URGENCY: STATUS: COMPLETED Advance Directive Screen MH [...] of his/her rights. Suicide Screen: C-SSRS Screening Mobile-Suicide Severity Rating Scale (C-SSRS Screener) 1. Over [...] full rights to use it throughout the [place] system. PRIMARY SCREEN RESULT: The Primary Screen is NEGATIVE. The individual answered never to all forms of IPV above (i.e., answered never to all 5 items) The individual accepts education and/or resources: No EDUCATION: Other: not interested at this time /oscar/ Ramon Almendarez Health Research Agricultural Engineer BINDING FOLDER MACHINE,PRIMARY CARE Signed: 08/26/2024 13:53 RAMON ALMENDAREZ DE [facility]
--- OUTSIDE RECORDS SUMMARY | 2025-02-12 08:39 | XMS_ITS ---
Author Name [facility] [place] Address [address] [place] [address] Care Team Providers Care Operations Technician Name Role Phone ALISON CLARK Primary Care Provider Unav[facility] Insurance Providers: All historical and current Section [...] Name Patient's Relationship to Policy Butler AARP [facility] (WNR) MEDICARE ADVANTAGE [facility] (WNR) Oct 09, 2020 [id number] ANTHONYUMM PATIENT [facility] (WNR) MEDICARE ADVANTAGE [facility] (WNR) Oct 09, 2020 [id number] ANTHONYUMM Chamberlain PATIENT [facility] (WNR) MEDICARE ADVANTAGE [facility] (WNR) Apr 08, 2018 [id number] [phone] UMM CRUZM PATIENT Selected Encounter This section [...] activities for the patient from all [place] [facility]. This section includes future appointments and future orders which are active, pending or scheduled. Future Appointments This section includes appointments that were scheduled to occur 6 months from the date of the Encounter, up to a maximum of 20 appointments. The data comes from all [place] treatment facilities. Appointment Date/Time Appointment Type Appointme nt Facility Name Nov 20, 2024 07:45 AM AMBULATORY - MEDICINE [facility] [place] [facility] Nov 27, 2024 11:30 AM AMBULATORY MEDICINE [facility] [place] [facility] February 26, 2025 10:00 AM [facility]ORY - [facility]IC[facility] Social History: Smoking Status (Most [...] 26, 2024 02:00 PM VA-TOBACCO FORMER USER [facility] [place] [facility] Tobacco Use History This section includes a history of the smoking, or tobacco-related health factors, that were collected on or before the date of the Encounter. The data comes from the [place] facility where the Encounter took place. Date/Time Smoking Status/Tobacco Use Comment F acility Aug 26, 2024 02:00 PM VA-TOBACCO QUIT 15 YRS OR MORE [facility] [place] [facility] Aug 14, 2023 01:00 PM VA-TOBACCO FORMER USER [facility] [place] [facility] Aug 14, 2023 01:00 PM VA-TOBACCO QUIT 15 YRS OR MORE [facility] [place] [facility] Aug 22, 2022 03:00 PM VA-TOBACCO FORMER USER [facility] [place] [facility] Aug 22, 2022 03:00 PM VA-TOBACCO QUIT 15 YRS OR MORE [facility] [place] [facility] Mar 20, 2020 03:08 PM VA-TOBACCO FORMER USER [facility] [place] [facility] Mar 20, 2020 03:08 PM VA-TOBACCO QUIT 15 YRS OR MORE [facility] Nov 16, 2018 10:37 AM [place]-TOBACCO FORMER USER [facility] Nov 16, 2018 10:37 AM [place]-TOBACCO QUIT 15 YRS OR MORE [facility] Encounter Notes: All associated encounter notes This section contains the clinical notes associated to the Encounter. Date/Time Encounter Note(s) Provider Source Oct 30, 2024 10:00 AM ADDENDUM: LOCAL TITLE: Addendum STANDARD TITLE: ADDENDUM DATE OF NOTE: OCT 30, 2024@10:00:04 ENTRY DATE: OCT 30, 2024@10:00:05 AUTHOR: GLORY VIZCARRA COSIGNER: URGENCY: STATUS: COMPLETED also requesting a renewal: [id number] CARBIDOPA 25/LEVODOPA 100MG TAB /oscar/ GLORY VIZCARRA CPhT Gas Cutting Machine Operator, [place]/Pharmacy Customer Care Signed: 10/30/2024 10:00 Receipt Acknowledged By: 11/06/2024 12:25 /oscar/ ADELINE JONES MD PHYSICIAN ====== --- Original Document --- 10/30/24 V1 PHARMACY CUSTOMER CARE MEDICATION RENEWAL: Date: Oct Division: [facility] referred by Pharmacy Call Center for medication renewal: Non-controlled/maintenan ce medication Medications requested: [id number] RASAGILINE MESYLATE 1MG TAB Patient is out of medication and would appreciate expedited delivery if available. Please contact the outpatient pharmacy for assistance with shipment Defer to specialty clinic To be mailed . Please review and renew if appropriate. *This note was generated by [facility] Pharmacy Customer Care. If you have any questions or need assistance, do not contact this author. Please refer all questions to your local, on-site pharmacy departments. /oscar/ GLORY VIZCARRA CPhT Gas Cutting Machine Operator, MS/Pharmacy Customer Care Signed: 10/30/2024 09:59 Receipt Acknowledged By: 11/06/2024 12:25 /oscar/ ADELINE JONES MD PHYSICIAN GLORY VIZCARRA [facility] Oct 30, 2024 09:58 AM PHARMACY NOTE: LOCAL TITLE: V1 PHARMACY CUSTOMER CARE MEDICATION RENEWAL STANDARD TITLE: PHARMACY NOTE DATE OF NOTE: OCT 30, 2024@09:58 ENTRY DATE: OCT 30, 2024@09:58:34 AUTHOR: GLORY VIZCARRA V EXP COSIGNER: URGENCY: STATUS: COMPLETED V1 PHARMACY CUSTOMER CARE MEDICATION RENEWAL Has ADDENDA Date: Oct Division: [facility] referred by Pharmacy Call Center for medication renewal: Non-controlled/maintenan ce medication Medications requested: [id number] RASAGILINE MESYLATE 1MG TAB Patient is out of medication and would appreciate expedited delivery if available. Please contact the outpatient pharmacy for assistance with shipment Defer to specialty clinic To be mailed . Please review and renew if appropriate. *This note was generated by [facility] Pharmacy Customer Care. If you have any questions or need assistance, do not contact this author. Please refer all questions to your local, on-site pharmacy departments. /oscar/ GLORY VIZCARRA CPhT Gas Cutting Machine Operator, [place]/Pharmacy Customer Care Signed: 10/30/2024 09:59 Receipt Acknowledged By: 11/06/2024 12:25 /rip JONES MD PHYSICIAN 10/30/2024 ADDENDUM STATUS: COMPLETED also requesting a renewal: [id number] CARBIDOPA 25/LEVODOPA 100MG TAB /oscar/ GLORY VIZCARRA CPhT Gas Cutting Machine Operator, [place]/Pharmacy Customer Care Signed: 10/30/2024 10:00 Receipt Acknowledged By: * AWAITING SIGNATURE * ADELINE JONES JACKIE [facility]
--- OUTSIDE RECORDS SUMMARY | 2025-02-12 08:39 | XMS_ITS ---
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 Date/Time Encounter Type Encounter Description Reason Provider Source February 15, 2024 11:00 AM OFFICE O/P EST LOW 20 MIN PRIMARY CARE/MEDICINE ICD-10-CM I10 Essential (primary) hypertension VEGA POPE IHMaki Encounter Template Text not used by [place] Assessments - Encounter Diagnoses This section includes the primary and secondary diagnoses documented for the Encounter. Date/Time Primary/Secondary Diagnosis Diagnosis Name Provider Source February 15, 2024 11:17 AM PRIMARY Essential (primary) hypertension VEGA POPE [facility] February 15, 2024 11:17 AM SECONDARY Parkinson's dis w/o dyskinesia, w/o mention of fluctuations VEGA POPE [facility] Plan of Treatment: Future Appointments (+ [...] 20 appointments. The data comes from all [place] treatment facilities. Appointment Date/Time Appointment Type Appointme nt Facility Name Aug 09, 2024 01:30 PM AMBULATORY - MEDICINE [facility] Lab Results: +/- 30 days of [...] Unit Interpretation Reference Range Specimen Type Comment February 08, 2024 09:18 AM [facility] BASIC METABOLIC PANEL (non-fasting) SERUM Spe cimen Type: SERUM No comment entered. Ordering Provider: TRUNG POPE Report Released Date/Time: Feb 02, 2024 10:46 AM Reporting Lab: [facility] [address] [facility] [address] Performing Lab: [facility] [address] [facility] [address] UREA NITROGEN 23 mg/dL 7-25 GLUCOSE 112 mg/dL H 65-100 SODIUM 137 mmol/L 135-145 POTASSIUM 3.9 mmol/L 3.5-5.0 CHLORIDE 100 mmol/L 100-110 CO2 27 meq/L 20-30 CREATININE, Serum 1.01 mg/dL 0.50-1.40 eGFR(CKD-EPI 2020) 79 mL/min >60 February 08, 2024 09:18 AM [facility] CBC BLOOD Specimen Type: BLOOD No comment entered. Ordering Provider: BRAN POPE Report Released Date/Time: Feb 02, 2024 10:46 AM Reporting Lab: [facility] [address] [facility] [address] Performing Lab: [facility] [address] [facility] [address] WBC 5.84 10*3/uL 4.50-11.00 RBC 4.62 10*6/uL 4.23-5.66 HGB 14.3 g/dL 12.8-17 HCT 40.9 39.2-50.4 MCV 88.5 fL 82-99 MCHC 35.0 g/dL 30.8-35.1 PLT 162 10*3/uL 140-360 RDW-CV 12.4 12.0-16.0 MCH 31.0 pg 26.2-32.6 February 08, 2024 09:18 AM [facility] LIPID PANEL, NON FASTING SERUM Specimen Type: SERUM No comment entered. Ordering Provider: BRAN POPE Report Released Date/Time: Feb 02, 2024 10:46 AM Reporting Lab: [facility] [address] [facility] [phone] Performing Lab: [address] [address] CHOLESTEROL 161 mg/dL TRIGLYCERIDE 102 mg/dL 0-150 LDL calculated 101 mg/dL 0-129 CHOL/HDL 4.0 HDL CHOLESTEROL 40 mg/dL 40-60 February 08, 2024 09:18 AM [facility] LIVER FUNCTION SERUM Specimen Type: SERUM No comment entered. Ordering Provider: BRAN POPE Report Released Date/Time: Feb 02, 2024 10:46 AM Reporting Lab: [facility] [address] [facility] [address] Performing Lab: [address] [address] PROTEIN,TOTAL 7.2 g/dL 6.0-8.3 ALBUMIN 4.0 g/dL [...] Source February 15, 2024 11:15 AM 126/66 [facility] [place] [facility] February 15, 2024 10:40 AM 97.1 52 152/97 20 99 0 70 192 28 [facility] [place] [facility] Social History: Smoking Status [...] VA-TOBACCO FORMER USER [facility] [place] [facility] Tobacco Use History This section includes a history of the smoking, or tobacco-related health factors, that were collected on or before the date of the Encounter. The data comes from the [place] facility where the Encounter took place. Date/Time Smoking Status/Tobacco Use Comment F acility Aug 14, 2023 01:00 PM VA-TOBACCO QUIT 15 YRS OR MORE [facility] [place] [facility] Aug 22, 2022 03:00 PM VA-TOBACCO FORMER USER [facility] [place] [facility] Aug 22, 2022 03:00 PM VA-TOBACCO QUIT 15 YRS OR MORE [facility] [place] [facility] Mar 20, 2020 03:08 PM VA-TOBACCO FORMER USER [facility] [place] [facility] Mar 20, 2020 03:08 PM VA-TOBACCO QUIT 15 YRS OR MORE [facility] [place] [facility] Nov 16, 2018 10:37 AM VA-TOBACCO FORMER USER [facility] [place] [facility] Nov 16, 2018 10:37 AM VA-TOBACCO QUIT 15 YRS OR MORE OR [facility] Encounter Notes: All associated encounter notes [...] complaint: Patient is a 73 year old . HPI: Pleasant male Dalton here to follow up. Feeling well. Lives [...] no sx 2. Parkinson disease - follows [facility], Dr Hart 3. HTN - [...] guard, watchful, or easily startled? NO 5. Melba numb or detached from people, activities, or your surroundings? NO 6. Melba guilty or unable to stop blaming yourself [...] of active outpatient prescriptions dispensed from this [place] (local) and dispensed from another [place] or [facility] facility (remote) as well as inpatient orders [...] or non-VA provider. /oscar/ Bran Pope DNP, BARREL DRAINER-BC, CNL Primary Care Nurse Practitioner Signed: 02/15/2024 11:16 BRAN POPE [place] [facility] [place] [facility] February 15, 2024 11:01 AM PRIMARY CARE [...] 140 - 360 /es/ Bran Pope DNP, BARREL DRAINER-BC, CNL Primary Care Nurse Practitioner Signed: 02/15/2024 11:11 BRAN POPE [place] [facility] [place] [facility] February 15, 2024 10:42 AM PREVENTIVE MEDICINE [...] Not worried about housing near future The reports the following: Within the past 12 months, you worried whether your food would run out before you got money to buy more. Never true Within the past 12 months, the food you bought just didn't last and you didn't have money to get more. Never true /es/ Ramon Almendarez, Health Education Professor VOCATIONAL REHABILITATION CONSULTANT,PRIMARY CARE Signed: 02/15/2024 10:43 RAMON ALMENDAREZ [facility]
== END 2025-02-12 16:21 | disposition home or self-care (01) ==
LOC: HO.HSMS 08:27
PROVIDERS: PCP Internal Medicine; Visit Provider Nurse Practitioner Family
DX: G47.33 Obstructive sleep apnea (adult) (pediatric) (principal); G20.A1 Parkinson's disease without dyskinesia, without mention of fluctuations; R06.83 Snoring; G47.10 Hypersomnia, unspecified
CPT/HCPCS: 99214

== ENCOUNTER → 2025-02-12 08:27 | Outpatient (BNVA) | payer MEDICARE, SELFPAY | PROVIDERS: PCP Internal Medicine; Visit Provider Nurse Practitioner Family | DX: Z13.89 Encounter for screening for other disorder (principal) ==

== ENCOUNTER 2025-03-12 08:56 | Outpatient (AMB) | payer MEDICARE, SELFPAY ==
--- NOTE | 2025-03-12 09:15 | MHC.OFFVIS ---
Vital Signs 03/12/25 09:16 Height 5 ft 10 in Weight 189 lb 9.561 oz BMI 27.2 BP 120/80 Blood Pressure Location Lt brachial Position Sitting Pulse 88 Pulse Source Pulse Oximeter Intake Visit Reasons: 6m follow up Allergies bee venom protein (honey bee) Allergy (Severe, Verified 02/12/25 08:24) Anaphylaxis tetanus Allergy (Severe, Uncoded 09/12/24 09:49) Nausea and Vomiting Medication List - Last Reconciled 03/12/25 by Nishant Patel MD apixaban (Eliquis) 5 mg PO BID carbidopa-levodopa 25-100 mg 1 tab PO QID 30 days epinephrine (EpiPen 2-Christiano) 0.3 mg IM Q4H PRN multivitamin 1 tab PO DAILY rasagiline 1 mg PO DAILY 30 days valsartan-hydrochlorothiazide 80-12.5 mg 1 tab PO DAILY HPI Comments Details: Bran comes for follow-up in 6 months. He he complains of fatigue in the afternoon time and has to take a nap. He denies any symptoms of prolonged palpitation irregular heartbeat. Denies any worsening exertional shortness of breath, orthopnea, PND, leg edema. No lightheadedness, syncope. No bleeding issues or neurologic events. He is currently treating sleep apnea which is mild by non mask related interventions COUNTS INCLUDE 234 BEDS AT THE [facility] Medical History Afib Atrial flutter Parkinson's disease Pleural plaque due to asbestos exposure Basal cell carcinoma HTN (hypertension) Surgical History S/P skin biopsy History of colon surgery Hx of knee surgery Hx of appendectomy Family History Father Oral cancer Heart attack Mother Stroke Daughter HTN (hypertension) Hypothyroid Sister No problems noted. Sister No problems noted. Sister HTN (hypertension) Social History Household Members: Spouse Are you a primary intensive care specialist to a significant other at home: No Do you presently have visiting nurse or other home services: No Alcohol intake: current Alcohol intake frequency: holidays/special occasions only Patient Tobacco Use Status: Former Tobacco user Review of Systems Const Denies weakness Eyes Reports no additional complaints ENT Reports no additional complaints and Denies dizziness Card Reports no additional complaints, Denies chest pain, Denies chest pain with activity, Denies syncope, Denies rapid heart rate, Denies pedal edema, Denies edema, Denies leg edema, Denies lightheadedness, Denies palpitations, Denies dyspnea, Denies dyspnea on exertion and Denies orthopnea Resp Denies cough, Denies dyspnea and Denies dyspnea on exertion GI Denies hematochezia and Denies change in stool character Musc Denies abnormal gait, Denies muscle cramps, Denies muscle weakness, Denies numbness, Denies radiating pain into limb and Denies tingling Neuro Denies Abnormal speech present, Denies abnormal gait, Denies dizziness, Denies syncope, Denies numbness, Denies tingling and Denies weakness Endo Denies palpitations Physical Exam Vital Signs: Last Vital Signs Pulse 88 03/12/25 09:16 BP 120/80 03/12/25 09:16 BMI result Body Mass Index 27.2 Const General: cooperative, comfortable, no acute distress, alert, awake, Physically active and well groomed Nutritional Appearance: average body habitus and well nourished Orientation/consciousness: patient oriented x3 Limitations: no limitations HEENT Head: Yes normocephalic and Yes atraumatic Neck Neck: Yes trachea midline, Yes supple and Yes no JVD Resp Effort & Inspection: normal respiratory effort Auscultation: clear to auscultation bilaterally Cardio Jugular venous distension: no JVD Palpation: normal PMI Rate: regular rate Rhythm: regular rhythm Heart sounds: S1 normal heart sound present, S2 normal heart sound present, no click, no gallops, no murmurs and no rubs GI Auscultation: normal bowel sounds Skin General skin exam: no rashes or lesions noted Neuro General: patient oriented x3, no focal motor deficits and other (Parkinsonian tremor) Speech: No Abnormal speech present Extrem General: Yes no clubbing, cyanosis or edema Psych Appearance: grossly normal Assessment & Plan Assessment & Plan (1) Paroxysmal atrial flutter: Code(s): I48.92 - Unspecified atrial flutter Category: Medical Plan: Paroxysmal atrial flutter in this elderly gentleman, currently in sinus rhythm. This is not likely for his symptoms. Most likely related to his Parkinson's disease and possibly sleep apnea. At this point time continue rhythm control approach. Continue monitor and report any symptoms of rapid heart rate or palpitations. Continue full oral anticoagulation, currently on apixaban 5 mg b.i.d.. Continue aggressive blood pressure control which is currently well optimized. (2) Ascending aorta enlargement: Code(s): I77.89 - Other specified disorders of arteries and arterioles Category: Medical Plan: Mild ascending aortic enlargement which is stable. Will follow up with echocardiogram in 5 months time. Continue aggressive blood pressure control as advised. No surgical interventions required. Will follow up in the clinic in 6 months time, sooner p.r.n.. Thank you for allowing me to partake in his care Orders: Orders CA echo transthoracic complete 5 Months I77.89 - Other specified disorders of arteries and arterioles Coding Level of Care Code Est Pt Level 4 (61171) Complex EM visit Add On G2211 Diagnoses Paroxysmal atrial flutter I48.92 Ascending aorta enlargement I77.89
[2025-03-12 09:16] VITALS: BP 120/80; PULSE 88; BMI 27.2
--- OUTSIDE RECORDS SUMMARY | 2025-03-12 09:22 | XMS_ITS ---
Author Name [facility] [place] [facility] [place] [place] Address [address] [place] [id number] Care Team Providers Care Retort Press Operator Name Role Phone ALISON POPE Primary Care Provider Unavaila ble Insurance [...] Butler's Name Patient's Relationship to Policy Butler [facility] (WNR) MEDICARE ADVANTAGE [facility] (WNR) Oct 09, 2020 [id number] UMM CRUZ PATIENT [facility] (WNR) MEDICARE ADVANTAGE MCR (WNR) Oct 09, 2020 [id number] ANTHONYUMM Chamberlain PATIENT [facility] (WNR) MEDICARE ADVANTAGE MCR (WNR) Apr 08, 2018 [id number] [phone] ANTHONYUMM PATIENT Selected Encounter This section includes the information on record at [place] for the Encounter. Date/Time Encounter Type Encounter Description Reason Provider Source March 06, 2025 01:00 PM OFFICE O/P EST HI 40 MIN PRIMARY CARE/MEDICINE ICD-10-CM G47.33 Obstructive sleep apnea (adult) (pediatric) PRO POPE AM Maki Encounter Template Text not used by [place] Assessments - Encounter Diagnoses This section includes the primary and secondary diagnoses documented for the Encounter. Date/Time Primary/Secondary Diagnosis Diagnosis Name Provider Source March 06, 2025 01:21 PM PRIMARY Obstructive sleep apnea (adult) (pediatric) POPEVEGA ELVA Pearce [facility] March 06, 2025 01:21 PM SECONDARY Essential (primary) hypertension VEGA POPE [facility] March 06, 2025 01:21 PM SECONDARY Unspecified atrial fibrillation POPEVEGA [facility] Plan of Treatment: Future Appointments (+ 6 months) and Future Tests (+/- 45 days) The Plan of Treatment section includes future care activities for the patient from all [place] treatmentfacilities. This section includes future appointments and future orders which are active, pending or scheduled. Future Appointments This section includes appointments that were scheduled to occur 6 months from the date of the Encounter, up to a maximum of 20 appointments. The data comes from all [place] treatment facilities. Appointment Date/Time Appointment Type Appointme nt Facility Name Sep 05, 2025 11:00 AM AMBULATORY - MEDICINE [facility] Lab Results: +/- 30 days of the encounter This section includes the Chemistry and Hematology Lab Results on record with [place] for the patient. Radiology Reports and Pathology Reports are provided separately, in subsequent sections. Lab Results This section contains the Chemistry/Hematology Results that were resulted 30 days before or 30 daysafter the date of the Encounter. Date/Time Source Result Type Result - Unit Interpretation Reference Range Specimen Type Comment February 19, 2025 10:08 AM [facility] BASIC METABOLIC PANEL (non-fasting) SERUM Spe cimen Type: SERUM No comment entered. Ordering Provider: TRUNG POPE Report Released Date/Time: February 12, 2025 03:10 PM Reporting Lab: [address] [address] Performing Lab: [address] [address] UREA NITROGEN 26 mg/dL 8-26 GLUCOSE 103 mg/dL H 65-100 SODIUM 138 mmol/L 136-145 POTASSIUM 4.2 mmol/L 3.5-5.1 CHLORIDE 101 mmol/L 98-107 CO2 28 meq/L 23-31 CALCIUM 9.4 mg/dL 8.8-10 CREATININE, Serum 1.00 mg/dL 0.72-1.25 eGFR(CKD-EPI 2020) 79 mL/min >60 February 19, 2025 10:08 AM [facility] CBC BLOOD Specimen Type: BLOOD No comment entered. Ordering Provider: ALISON POPE Report Released Date/Time: February 12, 2025 03:10 PM Reporting Lab: [facility] [address] [facility] [address] Performing Lab: [address] [address] WBC 4.98 10*3/uL 4.50-11.00 RBC 4.72 10*6/uL 4.23-5.66 HGB 14.3 g/dL 12.8-17 HCT 42.3 39.2-50.4 MCV 89.6 fL 82-99 MCHC 33.8 g/dL 30.8-35.1 PLT 177 10*3/uL 140-360 MPV 10.3 fL 9.2-12.4 RDW-CV 12.6 12.0-16.0 MCH 30.3 pg 26.2-32.6 February 19, 2025 10:08 AM [facility] LIPID PANEL, NON FASTING SERUM Specimen Type: SERUM No comment entered. Ordering Provider: ALISON POPE Report Released Date/Time: February 12, 2025 03:10 PM Reporting Lab: [facility] [address] [facility] [address] Performing Lab: [address] [address] CHOLESTEROL 183 mg/dL TRIGLYCERIDE 151 mg/dL H 0-150 LDL calculated 111 mg/dL 0-129 CHOL/HDL 4.4 HDL CHOLESTEROL 42 mg/dL >40 February 19, 2025 10:08 AM [facility] LIVER FUNCTION SERUM Specimen Type: SERUM No comment entered. Ordering Provider: ALISON POPE Report Released Date/Time: February 12, 2025 03:10 PM Reporting Lab: [address] [address] Performing Lab: [address] [address] PROTEIN,TOTAL 7.7 g/dL 6.4-8.3 ALBUMIN 4.5 g/dL 3.2-4.6 ALKALINE PHOSPHATASE 74 U/L 40-150 AST 35 U/L H 5-34 ALT 11 U/L 0-55 BILIRUBIN, TOTAL 1.0 mg/dL 0.2-1.2 February 19, 2025 10:08 AM [facility] PT & INR (PROTIME) PLASMA Specimen Type: PLASM A No comment entered. Ordering Provider: ALISON POPE Report Released Date/Time: February 12, 2025 03:10 PM Reporting Lab: [address] [address] Performing Lab: [address] [address] INR 1.6 PROTIME 17.1 s H 10.0-13.1 Vital Signs: All taken on the encounter date This section contains inpatient and outpatient Vital Signs collected on the date of the Encounter. Date/Time Temperature Pulse Blood Pressure Respiratory Rate SP02 Pain Height Weight Body Mass Index Source March 06, 2025 01:21 PM 138/86 mm[Hg] [facility] March 06, 2025 12:56 PM 97.3 F 60 /min 150/80 mm[Hg] 20 /min 99 % 0 70 in 193 lb 28 [facility] Social History: Smoking Status (Most current) and Tobacco Use (All prior to encounter date) This section includes the most current, and the historical, smoking and tobacco- related health factors from the [place] facility where the Encounter took place. Current Smoking Status This section includes the most current smoking, or tobacco-related health factor, from the [place] facility where the Encounter took place. Date/Time Current Smoking Status Comment Keven orozco Aug 26, 2024 02:00 PM VA-TOBACCO FORMER USER [facility] Tobacco Use History This section includes a history of the smoking, or tobacco-related health factors, that were collected on or before the date of the Encounter. The data comes from the [place] facility where the Encounter took place. Date/Time Smoking Status/Tobacco Use Comment F acility Aug 26, 2024 02:00 PM VA-TOBACCO QUIT 15 YRS OR MORE IN [facility] [place] [facility] Aug 14, 2023 01:00 PM VA-TOBACCO FORMER USER [facility] [place] [facility] Aug 14, 2023 01:00 PM VA-TOBACCO QUIT 15 YRS OR MORE [facility] [place] [facility] Aug 22, 2022 03:00 PM VA-TOBACCO FORMER USER [facility] [place] [facility] Aug 22, 2022 03:00 PM VA-TOBACCO QUIT 15 YRS OR MORE [facility] [place] [facility] Mar 20, 2020 03:08 PM VA-TOBACCO FORMER USER [facility] [place] [facility] Mar 20, 2020 03:08 PM VA-TOBACCO QUIT 15 YRS OR MORE [facility] [place] [facility] Nov 16, 2018 10:37 AM VA-TOBACCO FORMER USER [facility] [place] [facility] Nov 16, 2018 10:37 AM VA-TOBACCO QUIT 15 YRS OR MORE IN [facility] [place] [facility] Encounter Notes: All associated encounter notes This section contains the clinical notes associated to the Encounter. Date/Time Encounter Note(s) Provider Source March 06, 2025 01:18 PM PRIMARY CARE NURSE PRACTITIONER OUTPATIENT NOTE: LOCAL TITLE: NURSE PRACTITIONER OUTPATIENT NOTE STANDARD TITLE: PRIMARY CARE NURSE PRACTITIONER OUTPATIENT NOTE DATE OF NOTE: MARCH 06, 2025@13:18 ENTRY DATE: MARCH 06, 2025@13:18:17 AUTHOR: ALISON POPE COSIGNER: URGENCY: STATUS: COMPLETED Chief complaint: Patient is a 74 year old [place]. HPI: Pleasant male [place] here to follow up. Allergies: BEE VENOM, TETANUS TOXOID The following VA and Non-VA meds were reconciled with patient. The patient was educated on the use of the medications including indication and side effects. Active and Recently Outpatient Medications (excluding Supplies): Active Outpatient Medications Status ====== 1) APIXABAN 5MG TAB TAKE ONE TABLET BY MOUTH EVERY 12 HOURS ACTIVE Indication: FOR PREVENTION OF BLOOD CLOTS 2) CARBIDOPA 25/LEVODOPA 100MG TAB TAKE 1 TABLET BY MOUTH FOUR ACTIVE TIMES A DAY 3) EPINEPHRINE (EQV-EPI-PEN) 0.3MG/0.3ML INJECT DIRECTED ACTIVE INTRAMUSCULARLY ONE TIME 4) RASAGILINE MESYLATE 1MG TAB TAKE ONE TABLET BY MOUTH AT ACTIVE BEDTIME Pending Outpatient Medications Status ====== 1) KETOCONAZOLE 2% CREAM APPLY A SMALL AMOUNT TOPICALLY TWICE PENDING DAILY Indication: FOR ATHLETE'S FOOT Active Non-VA Medications Status ====== 1) Non-VA VALSARTAN TAB DIRECTED BY MOUTH ONCE DAILY ACTIVE 6 Total Medications Review of Systems: Constitutional: (-)for Fevers, chills, weakness, nights sweats On examination: 97.3 F [36.3 C] (03/06/2025 12:56)150/80 (03/06/2025 12:56)60 (03/06/2025 12:56)20 (03/06/2025 12:56)0 (03/06/2025 12:56)BMI: 27.8193 lb [87.54 kg] (03/06/2025 12:56) Stanton is alert and oriented X3 Cardiovasc: 2plus carotids without bruits, no JVD [...] source for the followin. Atrial fibrillation - rate controlled. Follows cardiology in [place], Dr Patel. 2. Asbestosis - remains asx 3. Colonic polyp - follows every three years with Dr. Huerta, due next year 4. Parkinson disease - [facility], Dr Hart 5. HTN - Hypertension - repeat 138/86 6. sleep apnea - per [place], mild, treating with positioning pillow. 7. onychomycosis - ketoconazole cream, educated on use, consult to podiatry. Today I spent 40 minutes on some or all of the following: chart review, history, physical examination, treatment planning, education and counseling of the patient/family/childcare aide, placing orders, communicating with other health care providers, completing health and wellness screenings (see below) and documentation in the electronic health record. Follow up visit in mos. Medication Reconciliation: Outpatient: Has the patient been taking medications as documented in the EMLR? YES: The patient has been taking medications as documented in the EMLR. Essential Medication List for Review used to complete this medication reconciliation. INCLUDED IN THIS LIST: Alphabetical list of active outpatient prescriptions dispensed from this [place] (local) and dispensed from another [place] or DoD facility (remote) as well as [...] whether with a VA or non-VA provider. HTN Assess for Elevated BP>=140/90: Repeat blood pressure: 138/86 The patient's blood pressure is usually adequately controlled. No medication changes are indicated at this time. /oscar/ Alison Ppoe DNP, [employer], CNL Primary Care Nurse Practitioner Signed: 03/06/2025 13:21 ALISON POPE [facility] March 06, 2025 01:01 PM PREVENTIVE MEDICINE NURSING NOTE: LOCAL TITLE: CLINICAL REMINDERS/NURSING STANDARD TITLE: PREVENTIVE MEDICINE NURSING NOTE DATE OF NOTE: MARCH 06, 2025@13:01 ENTRY DATE: MARCH 06, 2025@13:01:37 AUTHOR: RAMON ALMENDAREZ EXP FARHADIGNER: URGENCY: STATUS: COMPLETED Advance Directive Screen MH AD: Patient does not have an Advance Directive completed and is requesting more information. A consult was sent to Social Work Services at this visit so that an appointment can be made with the patient to review the advance directive. The patient received education about Advance Directives and written notification of his/her rights. Homelessness/Food Insecurity Screen: In the past 2 [...] have money to get more. Never true /oscar/ Ramon Almendarez, Health Galvanizing Pot Runner [employer] SUPERVISOR,PRIMARY CARE Signed: 03/06/2025 13:02 RAMON ALMENDAREZ [facility] March 06, 2025 12:59 PM PRIMARY CARE NURSE PRACTITIONER OUTPATIENT NOTE: LOCAL TITLE: NURSE PRACTITIONER OUTPATIENT NOTE STANDARD TITLE: PRIMARY CARE NURSE PRACTITIONER OUTPATIENT NOTE DATE OF NOTE: MARCH 06, 2025@12:59 ENTRY DATE: MARCH 06, 2025@12:59:50 AUTHOR: ALISON POPEIGNER: URGENCY: STATUS: COMPLETED ---- COAGULATION ---- PLASMA February 19 Aug 26 Reference 2024 2023 10:08 14:35 Units Ranges ------- PT 17.1 H 16.1 H sec 10 - 13.1 INR 1.6 1.5 PTT sec. 25.1 - 37.6 PT-CDH seconds 12.1 - 14.3 INR .89 - 1.11 PTT sec. 22.9 - 35.1 PT SEC 9.7 - 12.2 INR .9 - 1.1 PTT sec 26 - 36 ---- GENERAL CHEMISTRY ---- SERUM February 19 Aug 26 February 07 Aug 14 Reference 2024 2023 2023 2022 10:08 14:35 09:18 12:40 Units Ranges ------- GLUCOSE 103 H 91 112 H 89 mg/dL 65 - 100 BUN 26 22 23 20 mg/dL 8 - 26 CREATININE 1.00 0.84 1.01 0.93 mg/dL 0.72 - 1.25 eGFR([facility]) Ref: >=60 CREAT mg/dL .5 - 1.5 eGFR See Eval Ref: See Eval Sodium 138 137 137 139 mmol/L 136 - 145 K+/Pot 4.2 4.0 3.9 3.7 mmol/L 3.5 - 5.1 CL 101 104 100 101 mmol/L 98 - 107 CO2 28 22 27 27 mEq/L 23 - 31 CA 9.4 mg/dL 8.8 - 10 U[employer]Aci mg/dL 3.7 - 7.7 NH3/Amm PO4 mg/dL 2.5 - 4.5 T. PROT 7.7 7.6 7.2 7.7 g/dL 6.4 - 8.3 ALBUMIN 4.5 4.1 4.0 4.3 g/dL 3.2 - 4.6 T BILI 1.0 0.8 1.1 1.3 H mg/dL .2 - 1.2 D. BILI 0.5 mg/dL 0 - .5 AST 35 H 25 26 24 U/L 5 - 34 ALT 11 6 7 7 U/L 0 - 55 GGT U/L 0 - 54 ALK LEÓN 74 54 60 62 U/L 40 - 150 AMYLASE U/L 20 - 160 MAG mg/dL 1.6 - 2.6 ACETONE Ref: Neg T3 Total ng/dL 35 - 193 SERUM February 17 Aug 22 Reference 2022 2021 10:17 14:53 Units Ranges ------- GLUCOSE 104 H 95 mg/dL 65 - 100 BUN 24 18 mg/dL 8 - 26 CREATININE 0.86 0.85 mg/dL 0.72 - 1.25 eGFR([facility]) Ref: >=60 CREAT mg/dL .5 - 1.5 eGFR See Eval Ref: See Eval Sodium 139 140 mmol/L 136 - 145 K+/Pot 3.9 3.9 mmol/L 3.5 - 5.1 CL 104 103 mmol/L 98 - 107 CO2 26 26 mEq/L 23 - 31 CA mg/dL 8.8 - 10 [employer]ci mg/dL 3.7 - 7.7 NH3/Amm PO4 mg/dL 2.5 - 4.5 T. PROT 7.5 7.7 g/dL 6.4 - 8.3 ALBUMIN 4.1 4.3 g/dL 3.2 - 4.6 T BILI 1.1 1.2 mg/dL .2 - 1.2 D. BILI 0.4 mg/dL 0 - .5 AST 25 23 U/L 5 - 34 ALT 11 8 U/L 0 - 55 GGT U/L 0 - 54 ALK LEÓN 58 62 U/L 40 - 150 AMYLASE U/L 20 - 160 MAG mg/dL 1.6 - 2.6 ACETONE Ref: Neg T3 Total ng/dL 35 - 193 ---- LIPID PANEL ---- SERUM February 19 Aug 26 February 07 Aug 14 Reference 2024 2023 2023 2022 10:08 14:35 09:18 12:40 Units Ranges ------- CHOL 183 209 H 161 194 mg/dL <7 - 199 TRIG 151 H 301 H 102 150 mg/dL 0 - 150 HDL 42 46 40 48 mg/dL Ref: >=40 LDL-d 124 H mg/dL 0 - 159 LDL 111 Reflex to dLDL 101 116 mg/dL 0 - 129 CHO/HDL 4.4 4.5 4.0 4.0 SERUM February 17 Aug 22 Reference 2022 2021 10:17 14:53 Units Ranges ------- CHOL 193 198 mg/dL <7 - 199 TRIG 96 171 H mg/dL 0 - 150 HDL 49 50 mg/dL Ref: >=40 LDL-d mg/dL 0 - 159 LDL 125 114 mg/dL 0 - 129 CHO/HDL 3.9 4.0 ---- HEMOGLOBIN A1C ---- BLOOD Aug 14 February 17 Aug 22 Reference 2022 2022 2021 12:40 10:17 14:53 Units Ranges ------- HgbA1c Hgb-A1c % 4.4 - 6.1 Hgb-A1c % 3 - 6.1 HGB A1C % 4.4 - 6.4 Hgb-A1C % 3.4 - 6.1 HGB-A1c 5.5 5.6 5.6 % 4 - 5.6 ---- PROSTATIC ASSAYS ---- SERUM February 17 Reference 2022 10:17 Units Ranges ------- PSA 0.60 ng/mL 0.0 - 4.0 BLOOD February 17 Aug 22 Reference 2022 2021 10:17 14:53 Units Ranges ------- WBC 4.51 6.25 10*3/uL 4.5 - 11 RBC 4.67 4.76 10*6/uL 4.23 - 5.66 HGB 14.4 14.8 g/dL 12.8 - 17 HCT 41.7 41.9 % 39.2 - 50.4 MCV 89.3 88.0 fl 82 - 99 MCH 30.8 31.1 pg 26.2 - 32.6 MCHC 34.5 35.3 H g/dL 30.8 - 35.1 RDW 12.5 12.7 % 12 - 16 PLT 150 161 10*3/uL 140 - 360 Neut% % 43.7 - 75.8 Lymph% % 14 - 42.3 [place]% % 5.1 - 13.7 Eos% % .4 - 6.8 Baso% % .1 - 2 IG% % 0 - .7 NeutAbs 10*3/uL 2.2 - 7.6 LymAbs 10*3/uL 1 - 3.2 MonoAbs 10*3/uL .3 - 1.1 EosAbs 10*3/uL .03 - .44 BasoAbs 10*3/uL .01 - .13 IG,Abs 10*3/uL 0 - .06 NRBC% % 0 - 0 NRBC# 10*3/uL 0 - 0 RETIC % % .6 - 2 RETIC # 10*6/uL .03 - .09 Comments: p ---- MISCELLANEOUS TESTS ---- DATE TIME SPECIMEN TEST VALUE Ref ranges ------- February 19, 2025@10:08 SERUM eGFR(CKD-EPI 2020): 79 mL/min Ref: >=60 February 19, 2025@10:08 BLOOD MPV: 10.3 fL 9.2 - 12.4 /es/ Alison Pope DNP, [employer], CNL Primary Care Nurse Practitioner Signed: 03/06/2025 13:04 [facility]
== END 2025-03-12 09:40 | disposition home or self-care (01) ==
LOC: HO.HCS 08:56
PROVIDERS: PCP Internal Medicine; Visit Provider Internal Medicine Cardiovascular Disease
DX: I48.92 Unspecified atrial flutter (principal); I77.89 Other specified disorders of arteries and arterioles
CPT/HCPCS: 99214; G2211

== ENCOUNTER → 2025-03-12 08:56 | Outpatient (BNVA) | payer MEDICARE, SELFPAY | PROVIDERS: PCP Internal Medicine; Visit Provider Internal Medicine Cardiovascular Disease | DX: I48.92 Unspecified atrial flutter (principal); I77.89 Other specified disorders of arteries and arterioles | CPT/HCPCS: 99212 ==

== ENCOUNTER → 2025-08-26 10:42 | Outpatient (REF) | payer MEDICARE, SELFPAY ==
--- NOTE | 2025-08-26 10:44 | CA_ITS ---
Transthoracic Echocardiogram Patient (Last, First, Middle): Bran Taveras A Gender: M Date of : 1950 Age: 75 Procedure Date: 08/26/2025 Procedure Type: Transthoracic Echocardiogram Location: OP Height: 180.34 cm Weight: 84.37 kg BSA: 2.04 m2 Heart Rate: bpm BP: 132 / 78 mmHg Trimmer Climber: TO Referring MD: Nishant Patel MD Symptoms: I77.89 - Other specified disorders of arteries and arterioles Study Quality: Adequate ECG Rhythm: Sinus Conclusions: - The left ventricular systolic function is normal. The calculated ejection fraction is 56% by biplane method. - There is mild calcification of the aortic valve. - There is mild mitral annular calcification. - There is mild dilatation of the ascending aorta measuring 4.50 cm. Findings Left Ventricle Normal left ventricular cavity size. The left ventricular systolic function is normal. The calculated ejection fraction is 56% by biplane method. There is no evidence of regional wall motion abnormalities. Evidence suggests grade II (moderate) diastolic dysfunction. Severe focal hypertrophy of the basal septum. LV peak GLS -16%. Right Ventricle Mildly increased right ventricular cavity size. There is normal right ventricular systolic function. Atria Both atria are normal in size. Aortic Valve There is a normal trileaflet aortic valve. There is mild calcification of the aortic valve. There is no aortic valve stenosis. There is no aortic valve regurgitation. Mitral Valve There is mild mitral annular calcification. There is mild mitral valve regurgitation. There is no mitral valve stenosis. Pulmonic Valve The pulmonic valve is likely normal. Tricuspid Valve There is mild tricuspid valve regurgitation. There is no evidence of pulmonary hypertension. Great Vessels There is mild dilatation of the ascending aorta measuring 4.50 cm. Venous The inferior vena cava is normal in size and collapses greater than 50% with inspiration. Pericardium/Pleural There is no evidence of pericardial effusion. Prior Study Comparison No significant change compared to prior study dated: 08/05/2024. Measurements 2D Linear Measurements IVSd: 0.97 0.6-0.9/0.6-1.0 cm LVIDd: 5.46 3.9-5.3/4.2-5.9 cm LVIDd Index: 2.68 2.4-3.2/2.2-3.1 cm/m2 LVIDs: 3.15 2.0-3.6 cm LVPWd: 0.95 0.7-1.1 cm LA Diam: 4.20 2.7-3.8/3.0-4.0 cm LAIDs Index: 2.06 1.5-2.3 cm/m2 LV Mass: 249.08 67-162/88-224 g LV Mass Index: 122.10 43-95/49-115 g/m2 LVOT Diam: 2.30 3.0+(-)1.3 cm 2D Systolic Function EF 4C: 62.10 >55% EF 2C: 50.40 >55% EF BiP: 56.30 >55% Mitral Valve MV Pk E: 0.78 MV PK A: 0.53 MV Decel Time: 233.00 E/A: 1.50 E'Lateral: 5.98 E'Medial: 5.33 E/E' Med: 14.70 E/E' Lat: 13.10 PHT: 68.00 MVA PHT: 3.24 Decel [place]: 3.36 Aortic Valve AoV Pk Hamilton: 1.15 AoV Mn Hamilton: 0.88 AoV VTI: 0.25 AoV Pk Grad: 5.00 Aov Mn Grad: 3.00 HEIDI Cont.VTI: 4.68 LVOT LVOT Pk Hamilton: 1.14 LVOT Mn Hamilton: 0.84 LVOT VTI: 0.28 LVOT Pk Grad: 5.00 LVOT Mn Grad: 3.00 LVOT Diam: 2.30 LVOT Area: 4.15 Diastolic Function MV Pk E: 0.78 MV Pk A: 0.53 E/A: 1.50 E'Medial: 5.33 E/E' Med: 14.70 E' Laterial: 5.98 E/E' Lat: 13.10 Right Ventricle TAPSE (mm): 21.20 TVS' Hamilton: 11.50 Tricuspid Valve TR Pk Hamilton: 2.24 TR Pk Grad: 20.00 RA Press: 3.00 RVSP: 23.00 Great Vessels Aorta Sinus of Valsalva: 3.82 2.0-3.5 cm Ao Asc: 4.50 2.1-3.4 cm Updated in Other Vendor System with Status of Final Dayne Manzo MD electronically signed on 08/27/2025 4:21:43 PM with status of Final
== END ==
LOC: HO.CARD 10:42
PROVIDERS: Visit Provider Internal Medicine Cardiovascular Disease
DX: I77.89 Other specified disorders of arteries and arterioles (principal)
CPT/HCPCS: 93306

== ENCOUNTER → 2025-08-26 10:44 | Outpatient (BNV) | payer MEDICARE, SELFPAY | PROVIDERS: Visit Provider Internal Medicine | DX: I35.8 Other nonrheumatic aortic valve disorders (principal); I34.81 Nonrheumatic mitral (valve) annulus calcification; I71.21 Aneurysm of the ascending aorta, without rupture | CPT/HCPCS: 93306; 93356 ==

== ENCOUNTER 2025-09-16 12:25 | Outpatient (AMB) | payer MEDICARE, SELFPAY ==
[2025-09-16 12:49] VITALS: BP 130/76; PULSE 87; BMI 27.1
--- NOTE | 2025-09-16 12:49 | MHC.OFFVIS ---
Vital Signs 09/16/25 12:49 Height 5 ft 10 in Weight 189 lb BMI 27.1 BP 130/76 Blood Pressure Location Lt brachial Position Sitting Pulse 87 Intake Visit Reasons: 6 mth f./up echo Intake Note: 6 month follow-up with ekg feeling good Lay Health Advocate Required: No Allergies bee venom protein (honey bee) Allergy (Severe, Verified 02/12/25 08:24) Anaphylaxis tetanus Allergy (Severe, Uncoded 09/12/24 09:49) Nausea and Vomiting Medication List - Last Reconciled 09/16/25 by Nishant Patel MD apixaban (Eliquis) 5 mg PO BID carbidopa-levodopa 25-100 mg 1 tab PO QID 30 days epinephrine (EpiPen 2-Christiano) 0.3 mg IM Q4H PRN multivitamin 1 tab PO DAILY rasagiline 1 mg PO DAILY 30 days valsartan-hydrochlorothiazide 80-12.5 mg 1 tab PO DAILY HPI Comments Details: Bill comes for follow-up. Overall main issue with Parkinson's disease. Patient says he has had some falls with the last 6 months. He tries to protect himself by rolling over in his had no major injuries. He has not had any prolonged palpitation irregular heartbeat. No exertional chest pain or shortness of breath. No orthopnea, PND, leg edema. No other bleeding issues or neurologic events. [facility] Medical History Afib Atrial flutter Parkinson's disease Pleural plaque due to asbestos exposure Basal cell carcinoma HTN (hypertension) Surgical History S/P skin biopsy History of colon surgery Hx of knee surgery Hx of appendectomy Family History Father Oral cancer Heart attack Mother Stroke Daughter HTN (hypertension) Hypothyroid Sister No problems noted. Sister No problems noted. Sister HTN (hypertension) Social History Household Members: Spouse Are you a primary child care associate teacher to a significant other at home: No Do you presently have visiting nurse or other home services: No Alcohol intake: current Alcohol intake frequency: holidays/special occasions only Patient Tobacco Use Status: Former Tobacco user Review of Systems Const Denies chills, Denies fatigue, Denies fever(s), Denies frequent falls, Denies weakness, Denies weight gain and Denies weight loss ENT Denies dizziness Card Denies chest pain, Denies leg edema, Denies lightheadedness, Denies palpitations, Denies dyspnea, Denies dyspnea on exertion, Denies orthopnea and Denies other (loss of consciousness) Resp Denies cough, Denies dyspnea and Denies dyspnea on exertion GI Denies hematochezia and Denies change in stool character Musc Denies abnormal gait, Denies muscle weakness, Denies numbness, Denies radiating pain into limb and Denies tingling Neuro Denies Abnormal speech present, Denies abnormal gait, Denies dizziness, Denies frequent falls, Denies numbness, Denies tingling and Denies weakness Endo Denies fatigue and Denies palpitations Physical Exam Vital Signs: Last Vital Signs Pulse 87 09/16/25 12:49 BP 130/76 09/16/25 12:49 BMI result Body Mass Index 27.1 Const General: cooperative, comfortable, no acute distress, alert, awake, Physically active and well groomed Nutritional Appearance: average body habitus and well nourished Orientation/consciousness: patient oriented x3 Limitations: no limitations HEENT Head: Yes normocephalic and Yes atraumatic Neck Neck: Yes trachea midline, Yes supple and Yes no JVD Resp Effort & Inspection: normal respiratory effort Auscultation: clear to auscultation bilaterally Cardio Jugular venous distension: no JVD Palpation: normal PMI Rate: regular rate Rhythm: regular rhythm Heart sounds: S1 normal heart sound present, S2 normal heart sound present, no click, no gallops, no murmurs and no rubs GI Auscultation: normal bowel sounds Skin General skin exam: no rashes or lesions noted Neuro General: patient oriented x3, no focal motor deficits and other (Parkinsonian tremor) Speech: No Abnormal speech present Extrem General: Yes no clubbing, cyanosis or edema Psych Appearance: grossly normal Assessment & Plan Assessment & Plan (1) Paroxysmal atrial flutter: Code(s): I48.92 - Unspecified atrial flutter Category: Medical Plan: Paroxysmal atrial flutter remaining in sinus rhythm. Doing very well with rhythm control. Continue pursue rhythm control approach. No indication for antiarrhythmic drug therapy. Continue current oral anticoagulation therapy with Eliquis. Semi annual renal function test should be pursued. Avoidance of stimulants was discussed advised to call me with any new symptoms that may require further therapeutic options. If he continues to have significant issues with fall, may consider Watchman device. (2) Ascending aorta enlargement: Code(s): I77.89 - Other specified disorders of arteries and arterioles Category: Medical Plan: Ascending aortic aneurysm/enlargement at 4.5 cm. Still no indication for repair. Discussed with him. Continue aggressive blood pressure control which is currently well optimized. Advised to continue monitor blood pressure at home maintain a log. Goal blood pressure less than 130/84. Advised to avoid sudden strenuous isometric exercise. Will follow up in the clinic in 1 year's time after an echocardiogram. Thank you for allowing me to partake in his care Orders: Orders Complete Blood Count no Diff Today I48.92 - Unspecified atrial flutter CA echo transthoracic complete 1 Year I77.89 - Other specified disorders of arteries and arterioles Basic Metabolic Panel Today I48.92 - Unspecified atrial flutter Coding Level of Care Code Complex visit Add On G2211 Diagnoses Paroxysmal atrial flutter I48.92 Ascending aorta enlargement I77.89
== END 2025-09-16 13:04 | disposition home or self-care (01) ==
LOC: HO.HCS 12:26
PROVIDERS: PCP Internal Medicine; Visit Provider Internal Medicine Cardiovascular Disease
DX: I48.92 Unspecified atrial flutter (principal); I77.89 Other specified disorders of arteries and arterioles
CPT/HCPCS: 99214; G2211

== ENCOUNTER → 2025-09-16 12:25 | Outpatient (BNVA) | payer MEDICARE, SELFPAY | PROVIDERS: PCP Internal Medicine; Visit Provider Internal Medicine Cardiovascular Disease | DX: I48.92 Unspecified atrial flutter (principal); I77.89 Other specified disorders of arteries and arterioles | CPT/HCPCS: 99212 ==

== ENCOUNTER 2025-10-07 08:09 | Outpatient (AMB) | payer MEDICARE, SELFPAY ==
--- NOTE | 2025-10-07 08:11 | A.OFFVIS_ITS ---
Vital Signs 10/07/25 08:12 Weight 187 lb BP 140/90 H Blood Pressure Location Rt brachial Position Sitting Intake Visit Reasons: 6 mnts f/u appt Substation Operator Required: No Accompanied by: Self / Same As Patient Allergies bee venom protein (honey bee) Allergy (Severe, Verified 10/07/25 08:12) Anaphylaxis tetanus Allergy (Severe, Uncoded 10/07/25 08:12) Nausea and Vomiting Medication List - Last Reconciled 10/07/25 by BRIGETTE Ruvalcaba apixaban (Eliquis) 5 mg PO BID carbidopa-levodopa 25-100 mg 1 tab PO QID 30 days epinephrine (EpiPen 2-Christiano) 0.3 mg IM Q4H PRN multivitamin 1 tab PO DAILY rasagiline 1 mg PO DAILY 30 days valsartan-hydrochlorothiazide 80-12.5 mg 1 tab PO DAILY HPI Comments Details: 75-yr-old male presents for follow-up of Parkinson's disease, with PMH notable for mild OUSMANE (having declined PAP therapy in favor of positioning therapy), paroxysmal atrial flutter on chronic anticoagulation therapy, ascending aorta enlargement, distal LLE basal cell carcinoma (s/p excision by [facility]). He reports that his primary concern today is an increase in falls. He states he used to fall about once every 6 months, but more recently he is falling about once a month. He is tending to fall forward, especially when he gets up to walk, and upper body turns but the lower body does not follow. More risk for falls when hurried. He denies any falls backwards. Pt's current PD medication regimen: CD-LD 25-100mg 1 tab qid at 6 a.m., 12 p.m., 5:30-6 pm, 10 pm. Rasagiline 1mg qd in a.m.. He does not notice any wearing off or kicking in of his levodopa doses. Usual wake-up time is 06:00 Usual bedtime is 22:00 ADL's: Independent, but having more struggle with dressing- taking longer. Swallowing: No issues Voice: Can be softer. [facility] Cough: Occasional coughing- reports r/t recent cold s/s. Drooling: Increased, and a bit more difficult to notice with a wearing a canales in the winter- daytime and nighttime. Can be embarrassing. Orthostatic lightheadedness: Has not noticed. Does drink water and Gatorade. Constipation: None Urinary: No issues Freezing: In the evening, stairs can be more difficult. Becomes stuck if stands up quickly. Stiffness: Upon getting up from a chair, or rolling over in bed Tremor: Rarely will notice a rest tremor Falls: As above. He is stilling try to practice situational awareness . Hallucinations: None Memory: Today states would can be up and down a little bit, some symptoms of depression. He can feel some frustrated by the repeated reminders by his to adjust his posture, take bigger steps etc.. Though he acknowledges that this is coming from a place of love and support. He does not currently see a therapist, but he would be open to seeing 1 through the [place]. Mood: Depressed, frustrated at times with having to think about everything he is doing. Sleep: He states his sleep apnea symptoms are better with sleeping with a Parkinson's specific pillow that raises his head at about 45 degrees, however it is not always comfortable and he may slide down. When he needs not sleep as well, he is noticing that he needs to take more naps. May talk in his sleep and have dreams- not acting out dreams. Exercise: Active at home. Typically goes to the gym regularly- but not as much recently due to the holidays. Other- he does not mentioned recurrence of bilateral whole wrist aching pain has resolved. Brief episodes of tingling sensation in random parts of the body- mostly head or extremities- seems to have resolved once his a-fib was dx'd/tx'd. Previous work-up: 02/10/2025, In-lab PSG showed mild obstructive sleep apnea with increased severity in REM sleep, with AHI 12.9 per hour, REM AHI 17 per hour, average SpO2 93% with O2 jonel 81%, and SpO2 under 88% times 3.6 minutes of study time. Snoring was soft at times. Average heart rate 60 beats per minute. Periodic limb movements of sleep 51 per hour with PLMS arousal index 2.9 per hour. Note, that during the sleep study, obstructive sleep apnea were predominantly hypopneas, and occurred while patient was in supine sleep position. [facility] Medical History Afib Atrial flutter Parkinson's disease Pleural plaque due to asbestos exposure Basal cell carcinoma HTN (hypertension) Surgical History S/P skin biopsy History of colon surgery Hx of knee surgery Hx of appendectomy Family History Father Oral cancer Heart attack Mother Stroke Daughter HTN (hypertension) Hypothyroid Sister No problems noted. Sister No problems noted. Sister HTN (hypertension) Social History Household Members: Spouse Are you a primary career center director to a significant other at home: No Do you presently have visiting nurse or other home services: No Alcohol intake: current Alcohol intake frequency: holidays/special occasions only Patient Tobacco Use Status: Former Tobacco user Physical Exam Exam Exam: General: A&O x's 3 Expression:? Mild decreased expression and blink, left facial droop- chronic. Voice:? Mild hypophonia Tremor:? Intermittent mild BUE rest tremor Tone:? Bilateral upper extremity tone, mild Dyskinesia:? None FFM:? Mild progression in bradykinesia, more so on left Foot taps:? Mild progression in bradykinesia, more so on left Gait:? Stands easily today, good posture, decreased arm swing, short steps, steady gait Psych:? Pleasant affect Vital Signs: Last Vital Signs BP 140/90 H 10/07/25 08:12 Const General: cooperative and no acute distress Resp Effort & Inspection: normal respiratory effort and able to speak in complete sentences Assessment & Plan Assessment & Plan (1) Parkinson's disease without dyskinesia: Code(s): G20.A1 - Parkinson's disease without dyskinesia, without mention of fluctuations Category: Medical Qualifiers: Fluctuating manifestations: without fluctuating manifestations Qualified Code(s): G20.A1 - Parkinson's disease without dyskinesia, without mention of fluctuations (2) Mild obstructive sleep apnea: Code(s): G47.33 - Obstructive sleep apnea (adult) (pediatric) Category: Medical (3) Snoring: Code(s): R06.83 - Snoring Category: Medical (4) Hypersomnia, unspecified: Code(s): G47.10 - Hypersomnia, unspecified Category: Medical Plan Discussed that his interval falls are likely secondary to a mild progression in his Parkinson's symptoms. Interventions for this include optimizing his current levodopa therapy, learning how to move more consciously and in a manner that will not increase the risk for Parkinson's postural instability. Details outlined below. Parkinson's medication plan: * Discontinue Carbidopa-Levodopa 25-100mg 1 tab QID at 9am, 12pm, 3pm, and 6pm. * Start Carbidopa-Levodopa 25-100mg 1.5 tabs QID at 6am, 12pm, 6pm, and 10pm. * In hopes this reduces freezing, bradykinesia, falls. * Reviewed possible side effects of increasing levodopa therapy, including GI upset, dyskinesia, orthostatic hypotension, hallucinations, etc. * Continue Rasagaline 1mg daily in the morning. * [facility] [place] per patient request For overall Parkinson's management: * Consider [facility] * Also encouraged him to have a conversation with his regarding his appreciation for her reminders/cues regarding his movement, and yet these reminders can induce frustration. * To improve bed mobility: * Try using smoother sheets (though not satin or silk) * May consider adding a hand rail to the bed frame * Additional strategies to reduce fall risk: * Perform foot taps before standing * Stand slowly * Maintain upper and lower body alignment when turning * Resume regular physical activity, such as cardio and strength training his local gym * Advised that if he were to fall and strike his head, he should seek urgent medical attention at an ER, to obtain head imaging-due to his chronic Eliquis use. * Engage in regular cognitive stimulating activities * Engage in regular social activities * Follow-up with your volunteer assistant as scheduled. Future considerations- PT big program For mild OUSMANE: * Continue sleeping with head elevated * You may benefit from sleeping on an adjustable mattress, which would allow you to make smaller adjustments in head elevation to improve tolerance We will send today's note to his PCP at the [place], as the patient states his previous severely in PCP has retired, and he is unsure if he will continue with the practice that took over his office. Follow-up in 6 months or sooner as needed. Medications: Changed From carbidopa-levodopa 25-100 mg 7am, 11am, 3-4pm, 8-9pm 1 tab PO QID 30 days 120 tabs 6RF G20.A1 - Parkinson's disease without dyskinesia, without mention of fluctuations To carbidopa-levodopa 25-100 mg 6am, 12pm, 6m, 10pm 1.5 tabs PO QID 180 tabs 12RF 30 days G20.A1 - Parkinson's disease without dyskinesia, without mention of fluctuations Refilled rasagiline 1 mg PO DAILY 30 tabs 12RF 30 days G20.A1 - Parkinson's disease without dyskinesia, without mention of fluctuations Coding Level of Care Code Est Pt Level 4 (17381) Add On Problem Visit Only Diagnoses Parkinson's disease without dyskinesia or fluctuating manifestations G20.A1 Fluctuating manifestations: without fluctuating manifestations Mild obstructive sleep apnea G47.33 Snoring R06.83 Hypersomnia, unspecified G47.10
[2025-10-07 08:12] VITALS: BP 140/90
--- OUTSIDE RECORDS SUMMARY | 2025-10-07 09:36 | XMS_ITS | Clinical Summary ---
Author Organization [facility] Address [address] [place] [address] Phone Care Team Providers Care Traveling Freight Agent Name Role Phone Physician, No Pcp Primary Care Provider Unavaila ble Social History Tobacco Use Types Packs/Day Years Used Date Smoking Tobacco: Never Assessed Sex and Gender Information Value Date Recorded Sex Assigned at Not on file Legal Sex Male 2:28 AM EST Gender Identity Not on file Sexual Orientation Not on file Plan of Treatment Health Maintenance Due Date Last Done Comments Colorectal Cancer Screening: Colonoscopy 1950 DTaP,Tdap,and Td Vaccines (1 - Tdap) 1971 RSV Immunization Adult Patients (1 - Risk 50-74 years 1-dose series) 2002 Pneumococcal Vaccine: 50+ Years (2 of 2 - PCV) 03/15/2020 03/15/2019 Abdominal Aortic Aneurysm (AAA) Screen 09/11/2022 Cholesterol Screening (Lipid Panel) 09/11/2022 Falls Risk Assessment 09/11/2022 Hepatitis C Screening 09/11/2022 Medicare Annual Wellness Visit 09/11/2022 Social Influencers of Health Screening 09/11/2022 Hypertension/CHF/CAD Annual BMP Blood Test 08/30/2024 Depression Screening 10/09/2024 COVID-19 Vaccine ( season) 2025 07/25/2024, 08/14/2023, 08/18/2022, Additional history exists Influenza Vaccine (#1) 2025 , 06/18/2024, 08/14/2023, Additional history exists Zoster Vaccines Completed 07/09/2019, 03/15/2019 HIB Vaccines Aged Out No longer eligi [...] age to complete this topic Meningococcal B Vaccine Aged Out No l onger eligible based on patient's age to complete this topic RSV Immunization Patients Under 20 months Aged Out No longer eligible based on patient's age to complete this topic Varicella Vaccines Aged Out No longer eligible based on patient's age to complete this topic Insurance [employer] MEDICARE Advance Directives Documents on File Type Date Recorded Patient Concentrator Operator Expl anation Health Care Decision (hx) 02/04/2013 AD DEGROOT DIRECTIVE Health Care Decision (hx) 02/04/2013 AD DEGROOT DIRECTIVE Health Care Decision (hx) 02/04/2013 AD DEGROOT DIRECTIVE Health Care Decision (hx) 01/29/2013 AD DEGROOT DIRECTIVE Health Care Decision (hx) 01/29/2013 AD DEGROOT DIRECTIVE Health Care Decision (hx) 01/29/2013 AD DEGROOT DIRECTIVE Care Teams Traveling Freight Agent Relationship Specialty Start Date End Date Physician, No Pcp PCP - General 04/16/25
== END 2025-10-07 09:17 | disposition home or self-care (01) ==
PROVIDERS: PCP Internal Medicine; Visit Provider Nurse Practitioner Family
DX: G20.A1 Parkinson's disease without dyskinesia, without mention of fluctuations (principal); G47.33 Obstructive sleep apnea (adult) (pediatric); R06.83 Snoring; G47.10 Hypersomnia, unspecified
CPT/HCPCS: 99214; G2211

== ENCOUNTER → 2025-10-07 08:09 | Outpatient (BNVA) | payer MEDICARE, OTHER, SELFPAY | PROVIDERS: PCP Internal Medicine; Visit Provider Nurse Practitioner Family | DX: G20.A1 Parkinson's disease without dyskinesia, without mention of fluctuations (principal); G47.33 Obstructive sleep apnea (adult) (pediatric); R29.6 Repeated falls; R06.83 Snoring; G47.10 Hypersomnia, unspecified | CPT/HCPCS: 99212 ==